=== PATIENT | male | born 1960 | race Caucasian/White ===

== ENCOUNTER → 2022-07-25 | Outpatient (CLI) | payer MEDICARE ==
[~2022-07-25] VITALS: Ht 176 cm; Wt 113.6 kg
[~2022-07-25] MED LIST: AMOX500C2 PO; ATOR20TA66 PO; CITA20TA9 PO; CYCL10TA25 PO; HYDR-3820 PO; LOSA50TA63 PO; METF-399 PO; METO100T12 PO; ONDA4TAB11 SL; OXYB5TAB13 PO; PRCD5U PO; PREG150C46 PO; SEMA1PEN3 SQ
== END | disposition home or self-care (01) ==
LOC: PREOP 05:27
PROVIDERS: ATTEND Surgery
DX: Z01.818 Encounter for other preprocedural examination (principal)

== ENCOUNTER 2022-08-01 00:14 | Inpatient (IN) | payer OTHER, MEDICARE ==
[~2022-08-01] VITALS: Ht 177.8 cm; Wt 113.6 kg
[2022-08-01] VITALS (12 sets, daily range): BP systolic 98–150; BP diastolic 67–96
[2022-08-01] MEDS ORDERED: ceFAZolin INJECTION 2,000 MG in NS (IVPB) 50 ML IV ONE (08:45)
--- NOTE | 2022-08-01 08:45 | Progress Note-Pre Operative ---
Pre-Operative Progress Note Date of Available H&P: Jul 05, 2022 Date H&P Reviewed: Aug 01, 2022 Time H&P Reviewed: 08:45 History & Physical: H&P Reviewed, Patient Examed, No changes noted Pre-Operative Diagnosis: Hx of osteomyelitis and left foot ulcer CLAY NAYLOR DO Aug 01, 2022 08:45
[2022-08-01] MEDS: LACTATED RINGERS 1,000 ML IV PRN ×2 (08:56→10:35)
[2022-08-01] MEDS ORDERED: INSU100I32 SQ (08:59)
[2022-08-01] MEDS ORDERED: INSU100I40 SQ (08:59)
[2022-08-01] MEDS ORDERED: LIDOCAINE PF 2% 5 ML (XYLOCAINE) VIAL ONE (09:11)
[2022-08-01] MEDS ORDERED: SEVOFLURANE (ULTANE) 15 ML INHAL SOLN ONE ×4 (09:11→10:57)
[2022-08-01] MEDS ORDERED: proPOfol 200 MG/20 ML (DIPRIVAN) VIAL IV ONE (09:11)
[2022-08-01] MEDS ORDERED: ONDANSETRON 4 MG/2 ML (SDV) Z0FRAN ONE (09:11)
[2022-08-01] MEDS ORDERED: fentaNYL INJ 100 MCG/2 ML AMP ONE ×2 (09:12→11:21)
[2022-08-01] MEDS ORDERED: MIDAZOLAM 2 MG/2 ML (VERSED) VIAL ONE (09:12)
[2022-08-01] MEDS ORDERED: PHENYLEPHRINE 100 MCG/ML 10 ML (ANESTHESIA) SYR ONE (10:11)
[2022-08-01] MEDS ORDERED: ONDANSETRON 4 MG/2 ML (SDV) Z0FRAN IVP PRN ×2 (11:15→15:15)
[2022-08-01] MEDS ORDERED: morphine INJ 10 MG/ML 1ML (SYR OR VIAL) IVP ONE (11:15)
[2022-08-01] MEDS ORDERED: MEPERIDINE (DEMEROL) INJ 50 MG/ML IVP ONE (11:15)
[2022-08-01] MEDS ORDERED: fentaNYL INJ 100 MCG/2 ML AMP IVP ONE (11:15)
[2022-08-01] MEDS ORDERED: morphine INJ 10 MG/ML 1ML (SYR OR VIAL) ONE (11:15)
--- NOTE | 2022-08-01 12:07 | Progress Note-Post Operative ---
Post-Operative Progess Note Surgeon (s)/Ct Manager (s) Surgeon CLAY NAYLOR DO Ct Manager: marnie Pre-Operative Diagnosis Hx of osteomyelitis and left foot ulcer Post-Operative Diagnosis same Procedure & Operative Findings Date of Procedure 08/01/22 Procedure Performed/Findings Left bka Anesthesia Type gen Estimated Blood Loss Estimated blood loss (mL): minimal Specimens/Packing Specimens Removed left lower extremity CLAY NAYLOR DO Aug 01, 2022 12:07
[2022-08-01] MEDS: HYDROcodone/APAP 5 MG/325 MG (LORTAB) TAB PO PRN ×2 (13:17→20:40)
[2022-08-01] MEDS: LACTATED RINGERS 1,000 ML IV SCH ×2 (13:18→16:19)
--- NOTE | 2022-08-01 14:27 | Physical Therapy Evaluation ---
PT Evaluation-General Medical Diagnosis Admission Date Aug 01, 2022 at 07:40 Medical Diagnosis: left BKA Onset Date: Aug 01, 2022 Therapy Diagnosis Therapy Diagnosis: impaired mobility Precautions Precautions/Isolations: Fall Prevention, Standard Precautions, Pressure Ulcer Referral Physician: Davian Reason for Referral: Evaluation/Treatment Social History Home: Multilevel (has basement) Current Living Status: Spouse Entry Into Home: Ramp Prior Prior Level of Function SCALE: Activities may be completed with or without assistive devices. 4-Doprpfiwal-jgfvori completes the activity by him/herself with no assistance from a helper. 5-Set-up or Clean-up Assistance-helper sets up or cleans up; patient completes activity. [place] assists only prior to or following the activity. 4-Supervision or Touching Assistance-helper provides verbal cues and/or touching/steadying and/or contact guard assistance as patient completes activity. Assistance may be provided throughout the activity or intermittently. 3-Partial/Moderate Assistance-helper does LESS THAN HALF the effort. [place] lifts, holds or supports trunk or limbs, but provides less than half the effort. 2-Substantial/Maximal Assistance-helper does MORE THAN HALF the effort. [place] lifts or holds trunk or limbs and provides more than half the effort. 2-Rwadwvzvg-yylfvu does ALL the effort. Patient does none of the effort to complete the activity. Or, the assistance of 2 or more helpers is required for the patient to complete the activity. If activity was not attempted, code reason: 7-Patient Refused. 9-Not Applicable-not attempted and the patient did not perform the activity before the current illness, exacerbation or injury. 10-Not Attempted due to Environmental Limitations-(lack of equipment, weather restraints, etc.). 88-Not Attempted due to Medical Conditions or Safety Concerns. Bed Mobility: 6 Transfers (B,C,W/C): 6 Gait: 6 Stairs: 6 Indoor Mobility (Ambulation): Independent Stairs: Independent PT Evaluation-Current Subjective Patient in bed pre tx, agrees to PT, has 10/10 pain in left leg. Pt/Family Goals to be independent at home Objective Patient Orientation: Person, Place, Situation Attachments: Oxygen, IV Sensory Vision: Functional Hearing: Functional Sensation Right Lower Extremit: Intact Sensation Left Lower Extremity: Intact Transfers Roll Left to Right (QC): 4 Sit to Lying (QC): 4 Lying to Sitting/Side of Bed(Q: 4 SBA with supine <-> sit, patient has too much pain to stand at this time, he was able to sit to the side of the bed for several minutes before laying back down. Balance Sitting Static: Normal Sitting Dynamic: Normal Treatment LLE ROM x10 (QS, GS, hip abd/add, SLR, HS) Assessment/Needs Patient in bed post tx with nurse call, phone, tray, all needs met. Patient has impaired mobility, quite a bit of pain at this time, patient states nurse is aware of his pain. Rehab Potential: Fair PT Floral Decorator Goals Prison Goals PT Prison Goals Time Frame: Aug 08, 2022 Roll Left & Right (QC): 6 Sit to Lying (QC): 6 Lying-Sitting on Side/Bed(QC): 6 Sit to Stand (QC): 4 Chair/Gvj-ou-Cxqxt Xfer(QC): 4 Walk 10 feet (QC): 4 PT Plan Problem List Problem List: Activity Tolerance, Functional Strength, Safety, Balance, Gait, Transfer, Bed Mobility, ROM Treatment/Plan Treatment Plan: Continue Plan of Care Treatment Plan: Bed Mobility, Education, Functional Activity Han, Functional Strength, Gait, Safety, Therapeutic Exercise, Transfers Treatment Duration: Aug 08, 2022 Frequency: 6 times per week Estimated Hrs Per Day: .25 hour per day Patient and/or Family Agrees t: Yes Safety Risks/Education Patient Education: Correct Positioning, Safety Issues Teaching Recipient: Patient Teaching Methods: Demonstration, Discussion Response to Teaching: Reinforcement Needed Discharge Recommendations Plan Patient will perform bed mobility and transfer training, balance and endurance training, functional strengthening, gait training, and education, to improve functional mobility and independence at home. Therapy Discharge Recommendati: Home & Family, Post Acute PT Time Time In: 1348 Time Out: 1403 DATE: Aug 01, 2022 Total Billed Treatment Time: 15 Total Billed Treatment 1 visit CAROL COLE PT Aug 01, 2022 14:27
--- NOTE | 2022-08-01 14:37 | Consultation - Hospitalist ---
AKI JACKSON 08/01/22 1437: HPI History of Present Illness: HPI/Chief Complaint 62 year old male with history of Insulin dependent type 2 diabetes, tachycardia, hyperlipidemia, depression, chronic bilateral neuropathy who is S/P left BKA for chronic osteomyelitis of left foot. Dr. Marcelo has consulted Dr. Parry for management of patient's chronic health conditions. Patient was awake in bed eating lunch when seen. He is having significant pain in his left leg but reports feeling well otherwise. He denies headache, lightheadedness, dizziness, CP, palpitations, SOB, abd pain, N/V/D. Source: patient Date Seen 08/01/22 Attending Physician No,Local Physician PCP Admitting Physician: Shmuel Marcelo DO Attending Physician: Shmuel Marcelo DO Referring Physician Date of Admission Aug 01, 2022 at 07:40 Home Medications & Allergies Home Medications Reviewed patient Home Medication Reconciliation performed by pharmacy medication reconciliations technician assistant and/or nursing. Patients Allergies have been reviewed. Allergies Allergies Coded Allergies Iodinated Contrast Media (Unverified Allergy, Severe, Itching, 07/25/22) Past Rrotgev-Thyrss-Hvmwfb Hx Patient Social History Tobacco Use?: No Smoking Status: Never a Smoker Smokeless Tobacco Frequency: Never a User Use of E-Cig and/or Vaping dev: No Substance use?: Yes Substance type: Marijuana (edibles) Alcohol Use?: Yes Alcohol type: Beer Alcohol Frequency: Rarely Pt feels they are or have been: No Seasonal Allergies Seasonal Allergies: No Current Status Communicates: Verbally Primary Language: Czech Preferred Spoken Language: Czech Is interpretation needed?: No Sensory deficits: Hearing impairment Past Medical History Surgeries: Gallbladder Currently Using CPAP: No Currently Using BIPAP: No High Cholesterol Amputee, Chronic Back Pain Diabetes, Insulin dep PTSD, Depression Blood Disorders: No Review of Systems Constitutional: No chills, No diaphoresis, No dizziness, No fever EENTM: No hearing loss, No vision loss Respiratory: No cough, No hemoptysis, No short of breath Cardiovascular: No chest pain, No edema, No palpitations Gastrointestinal: No abdominal pain, No diarrhea, No loss of appetite, No nausea, No vomiting Genitourinary: No dysuria, No hematuria Musculoskeletal: other (intermittent left leg pain at amputation site) Skin: No rash Psychiatric/Neurological: Denies Anxiety; Depressed (chronic); Denies Headache; Other (chronic neuropathy in legs bilaterally) Physical Exam Physical Exam Vital Signs Vital Signs - First Documented 08/01/22 08/01/22 08:36 08:53 Temp 36.8 Pulse 94 Resp 22 B/P (MAP) 132/87 (102) Pulse Ox 96 O2 Delivery Room Air Capillary Refill : Height, Weight, BMI Height: '" Weight: lbs. oz. kg; 35.93 BMI Method: General Appearance: No Apparent Distress, WD/WN, Obese Eyes: Bilateral Eye PERRL, Bilateral Eye EOMI HEENT: PERRL/EOMI, Pharynx Normal, Moist Mucous Membranes Neck: Normal Inspection, Non Tender, Supple Respiratory: Chest Non Tender, Lungs Clear, Normal Breath Sounds, No Accessory Muscle Use, No Respiratory Distress Cardiovascular: Regular Rate, Rhythm, No Murmur, Normal Peripheral Pulses Gastrointestinal: Non Tender, Soft, Abnormal Bowel Sounds (decreased); No Distended Extremity: Normal Capillary Refill, Normal Range of Motion, No Pedal Edema, Other (BKA of left leg with bandage in place and small amount serosanguinous fluid present. 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 Assessment/Plan Assessment and Plan Assess & Plan/Chief Complaint Day 0 S/P left BKA History of chronic osteomyelitis and and left foot ulceration Procedure performed 08/01/[address] Marcelo Cefazolin 2g IV Q8hr, 2 bags ordered. Pain management with lortab 5mg Q4 PRN PO and Morphine Q2hr PRN IV at this time and will deescalate as appropriate Type 2 Diabetes, Insulin dependent Will hold home metformin 1g PO BID and semaglutide SQ weekly injection Start insulin sliding scale and monitor. Hold long acting insulin for now, most recent glucose of 79. Hyperlipidemia Continue Atorvostatin 20mg PO QD from home meds Tachycardia, chronic Patient takes metoprolol 100mg PO BID for chronic tachycardia. Pt. Denies seeing a wool handler regularly or history of atril fibrilation or flutter. Will continue metoprolol from home meds. Consider getting EKG. Depression Continue Citalopram 10mg QD Neuropathy Pregabalin 150mg PO BID. SOILA PARRY MD 08/01/22 1531: Results Results/Procedures Labs Laboratory Tests 08/02/22 04:58 Assessment/Plan Assessment and Plan Assess & Plan/Chief Complaint Patient admitted for BKA due to chronic osteomyelitis. He has IDDMII and is well controlled with his dexcom. Will only treat with SSI for now to avoid hypoglycemia unless they start trending up. Continue pain regimen and surgical wound care per primary. Continue home meds once med rec done. 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 I reviewed and verified all information documented by the medical student and made modifications to such information, when appropriate. I personally performed the physical exam and medical decision making. Soila Parry, Aug 01, 2022,15:31 AKI JACKSON Aug 01, 2022 14:37 SOILA PARRY MD Aug 01, 2022 15:31
[2022-08-01] MEDS: morphine INJ 4 MG/ML 1 ML (VIAL/SYRINGE) IVP PRN ×3 (14:45→23:05)
[2022-08-01] MEDS: inSUlin ASPART (NovoLOG) 1 UNIT/0.01 ML (CHARGE PER UNIT) SC SCH ×2 (16:20→20:40)
[2022-08-01] MEDS: ceFAZolin INJECTION 2,000 MG in NS (IVPB) 50 ML IV SCH (16:52)
[2022-08-02] VITALS (7 sets, daily range): BP systolic 123–140; BP diastolic 61–77
[2022-08-02] MEDS: ceFAZolin INJECTION 2,000 MG in NS (IVPB) 50 ML IV SCH (01:05)
[2022-08-02] MEDS: LACTATED RINGERS 1,000 ML IV SCH ×3 (01:08→22:31)
[2022-08-02] MEDS: HYDROcodone/APAP 5 MG/325 MG (LORTAB) TAB PO PRN ×5 (01:08→22:32)
[2022-08-02 05:06] LABS: HEMATOCRIT 37 % (40-54); HEMOGLOBIN 12.8 g/dL (13.3-17.7); MEAN CORPUSCULAR HEMOGLOBIN 30 pg (25-34); MEAN CORPUSCULAR HGB CONC 35 g/dL (32-36); MEAN CORPUSCULAR VOLUME 88 fL (80-99); MEAN PLATELET VOLUME 10.5 fL (9.0-12.2); PLATELET COUNT 234 10^3/uL (130-400); WHITE BLOOD COUNT 11.5 10^3/uL (4.3-11.0)
[2022-08-02 05:14] LABS: POTASSIUM 3.5 MMOL/L (3.6-5.0)
[2022-08-02 05:15] LABS: CALCIUM 8.5 MG/DL (8.5-10.1)
[2022-08-02 05:20] LABS: CREATININE SERUM 1.29 MG/DL (0.60-1.30)
[2022-08-02] MEDS: inSUlin ASPART (NovoLOG) 1 UNIT/0.01 ML (CHARGE PER UNIT) SC SCH ×4 (05:26→20:24)
[2022-08-02] MEDS: morphine INJ 4 MG/ML 1 ML (VIAL/SYRINGE) IVP PRN ×4 (05:32→13:13)
--- NOTE | 2022-08-02 10:02 | Progress Note - Surgery ---
CHRISTIAN MCCRACKEN 08/02/22 1002: Subjective Date Seen by a Provider: Aug 02, 2022 Time Seen by a Provider: 08:55 Subjective/Events-last exam Pt resting comfortably with family at bedside. POD1 left BKA. His pain is 8/10 and is a dull ache. States pain medications dull the pain slightly. He ate dinner last night without difficulty. No urinary sx. He has not had a bowel movement yet. Denies N/V, sweats, chills, chest pain, shortness of breath. Review of Systems General: No Chills, No Night Sweats HEENT: No Head Aches, No Visual Changes Pulmonary: No Dyspnea, No Cough Cardiovascular: No: Chest Pain Gastrointestinal: No: Nausea, Abdominal Pain, Diarrhea Genitourinary: No Dysuria, No Frequency Musculoskeletal: leg pain (left BKA) Neurological: Weakness, Numbness Objective Exam Vital Signs Date Time Temp Pulse Resp B/P (MAP) Pulse Ox O2 Delivery O2 Flow Rate FiO2 08/02/22 08:00 37.0 99 18 131/75 (93) 93 Room Air 08/02/22 03:17 37.1 100 18 131/74 (93) 95 Room Air 08/01/22 23:42 37.6 98 18 133/78 (96) 94 Room Air 08/01/22 20:40 Room Air 08/01/22 19:51 37.8 98 18 128/77 (94) 94 Room Air 08/01/22 16:17 37.3 102 18 150/80 (103) 95 Room Air 08/01/22 14:48 Room Air 08/01/22 12:53 Nasal Cannula 2.00 08/01/22 12:45 36.9 100 20 137/77 (97) 97 Nasal Cannula 2.00 08/01/22 12:05 Nasal Cannula 2.00 08/01/22 12:00 36.8 20 143/89 (107) 93 Nasal Cannula 2.00 08/01/22 11:55 OxyMask 2.00 08/01/22 11:50 18 149/92 (111) 98 OxyMask 4.00 08/01/22 11:40 18 140/96 (111) 97 OxyMask 4.00 08/01/22 11:40 OxyMask 4.00 08/01/22 11:30 16 139/90 (106) 95 OxyMask 4.00 08/01/22 11:22 OxyMask 4.00 08/01/22 11:20 20 126/84 (98) 97 OxyMask 4.00 08/01/22 11:10 18 98/67 (77) 97 OxyMask 6.00 08/01/22 11:07 OxyMask 8.00 08/01/22 11:07 36.3 16 98/67 (77) 98 OxyMask 8.00 I & O 08/02/22 07:00 Intake Total 4650 ml Output Total 700 ml Balance 3950 ml Capillary Refill : General Appearance: No Apparent Distress, WD/WN, Obese HEENT: PERRL/EOMI, Moist Mucous Membranes Neck: Non Tender, Supple Respiratory: Chest Non Tender, Lungs Clear, Normal Breath Sounds, No Accessory Muscle Use, No Respiratory Distress Cardiovascular: Regular Rate, Rhythm, No Murmur, Normal Peripheral Pulses Peripheral Pulses: 2+ Dorsalis Pedis (R), 2+ Radial Pulses (R), 2+ Radial Pulses (L) Gastrointestinal: normal bowel sounds, non tender, soft Extremity: Normal Capillary Refill, Normal Range of Motion, No Pedal Edema, Other (BKA of left leg with bandage in place and small amount serosanguinous fluid present. 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 Norm as Tested Skin: Normal Color, Warm/Dry, Tattoos/Piercings Lymphatic: No Adenopathy Results Lab Laboratory Tests 08/01/22 11:11: Glucometer 79 08/02/22 04:58: White Blood Count 11.5H, Red Blood Count 4.22L, Hemoglobin 12.8L, Hematocrit 37L , Mean Corpuscular Volume 88, Mean Corpuscular Hemoglobin 30, Mean Corpuscular Hemoglobin Concent 35, Red Cell Distribution Width 13.5, Platelet Count 234, Mean Platelet Volume 10.5, Sodium Level 138, Potassium Level 3.5L, Chloride Level 106, Carbon Dioxide Level 17L, Anion Gap 15H, Blood Urea Nitrogen 17, Creatinine 1.29, Estimat Glomerular Filtration Rate 63, BUN/Creatinine Ratio 13, Glucose Level 83, Calcium Level 8.5 08/02/22 05:28: Glucometer 92 Microbiology 08/01/22 MRSA Screen - Final, Complete MRSA not isolated Assessment/Plan Assessment/Plan Assessment/Plan S/p Left BKA - POD 1 Hx of Left foot ulcer Hx of osteomyelitis Type 2 Diabetes mellitus Pt tolerated L BKA well Completed abx Incentive spirometry Pain control Wound care Inpatient rehab Pt is agreeable with plan of care CLAY MARCELO DO 08/02/22 1502: Subjective Subjective/Events-last exam Pain an issue, pain med adjusted. Sitting in chair. Using IS. Denies n/v fever sweats chills shortness of breath or chest pain. Objective Exam General Appearance: No Apparent Distress, Obese HEENT: PERRL/EOMI, Moist Mucous Membranes Neck: Non Tender, Supple Respiratory: Chest Non Tender, No Accessory Muscle Use, No Respiratory Distress Cardiovascular: Regular Rate, Rhythm, No JVD Gastrointestinal: non tender, soft Extremity: Normal Capillary Refill, Normal Range of Motion, Other (BKA of left leg small amount serosanguinous fluid present. Well healing incision with no surrounding erythema or abnormalities.) Neurologic/Psychiatric: Alert, Oriented x3 Skin: Normal Color, Warm/Dry Lymphatic: No Adenopathy Assessment/Plan Assessment/Plan Assessment/Plan S/p Left BKA - POD 1 Hx of Left foot ulcer Hx of osteomyelitis Type 2 Diabetes mellitus Completed abx Incentive spirometry Pain control Wound care Inpatient rehab Pt is agreeable with plan of care Prosthetics consulted Supervisory-Addendum Brief Verification & Attestation Participated in pt care: history, MDM, physical Personally performed: exam, history, MDM, supervision of care Care discussed with: Medical Student Procedures: n/a Results interpretation: Verified all documentation Verification and Attestation of Medical Student E/M Service A medical student performed and documented this service in my presence. I reviewed and verified all information documented by the medical student and made modifications to such information, when appropriate. I personally performed the physical exam and medical decision making. Clay Marcelo, Aug 02, 2022,15:02 CHRISTIAN MCCRACKEN Aug 02, 2022 10:02 CLAY MARCELO DO Aug 02, 2022 15:02
--- NOTE | 2022-08-02 10:47 | Physical Therapy Daily Note ---
PT Daily Note-Current Subjective Patient in bed pre tx, has more pain today /10, nurse gives him pain meds, patient agrees to PT. Pain Section J - Health Conditions 1. Rarely or not at all 2. Occasionally 3. Frequently 4. Almost constantly 8. Unable to answer Pain Effect on Sleep: 4 Pain Interference with Therapy: 4 Pain Interference w/Day-to-Day: 4 Appearance Patient in recliner post tx with nurse call, phone, tray, all needs met. Mental Status Patient Orientation: Person, Place, Situation Attachments: IV Transfers SCALE: Activities may be completed with or without assistive devices. 7-Hnskiprpuc-jvfplzk completes the activity by him/herself with no assistance from a helper. 5-Set-up or Clean-up Assistance-helper sets up or cleans up; patient completes activity. [place] assists only prior to or following the activity. 4-Supervision or Touching Assistance-helper provides verbal cues and/or touching/steadying and/or contact guard assistance as patient completes activity. Assistance may be provided throughout the activity or intermittently. 3-Partial/Moderate Assistance-helper does LESS THAN HALF the effort. [place] lifts, holds or supports trunk or limbs, but provides less than half the effort. 2-Substantial/Maximal Assistance-helper does MORE THAN HALF the effort. [place] lifts or holds trunk or limbs and provides more than half the effort. 2-Uwnoqzsjv-xjnwde does ALL the effort. Patient does none of the effort to complete the activity. Or, the assistance of 2 or more helpers is required for the patient to complete the activity. If activity was not attempted, code reason: 7-Patient Refused. 9-Not Applicable-not attempted and the patient did not perform the activity before the current illness, exacerbation or injury. 10-Not Attempted due to Environmental Limitations-(lack of equipment, weather restraints, etc.). 88-Not Attempted due to Medical Conditions or Safety Concerns. Roll Left & Right (QC): 4 Lying to Sitting/Side of Bed(Q: 4 Sit to Stand (QC): 4 Chair/Hpt-le-Biphg Xfer(QC): 4 SBA for supine to sit, CGA for sit to stand and transfer. Patient is moving very slowly today due to the pain. Once he is standing he is able to take several small hops over to the recliner and sit down. Cues for hand placement and positioning. Exercises Supine Ex: Quad Set, Glut sets Supine Reps: 20 (done in recliner with legs elevated) Seated Therapy Exercises: Long arc quads, Hamstring Curls Seated Reps: 20 (LLE) Treatments bed mobility and transfers, ROM Assessment Current Status: Fair Progress improvement despite increased pain. Patient is having quite a bit of seeping, nurse is aware, left residual limb elevated on pillow with absorbing pad. 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 Time Frame: Aug 08, 2022 Roll Left & Right (QC): 6 Sit to Lying (QC): 6 Lying-Sitting on Side/Bed(QC): 6 Sit to Stand (QC): 4 Chair/Alb-fw-Xjszn Xfer(QC): 4 Walk 10 feet (QC): 4 PT Plan Problem List Problem List: Activity Tolerance, Functional Strength, Safety, Balance, Gait, Transfer, Bed Mobility, ROM Treatment/Plan Treatment Plan: Continue Plan of Care Treatment Plan: Bed Mobility, Education, Functional Activity Han, Functional Strength, Gait, Safety, Therapeutic Exercise, Transfers Treatment Duration: Aug 08, 2022 Frequency: 6 times per week Estimated Hrs Per Day: .25 hour per day Patient and/or Family Agrees t: Yes Safety Risks/Education Patient Education: Transfer Techniques, Correct Positioning, Safety Issues Teaching Recipient: Patient Teaching Methods: Demonstration, Discussion Response to Teaching: Reinforcement Needed Time Time In: 1018 Time Out: 1031 DATE: Aug 02, 2022 Total Billed Treatment Time: 13 Total Billed Treatment 1 visit FA 13CAROL WALLS PT Aug 02, 2022 10:47
--- NOTE | 2022-08-02 10:59 | Anesthesia-General Post-Op ---
General Patient Condition Mental Status/LOC: Same as Preop Cardiovascular: Satisfactory Nausea/Vomiting: Absent Respiratory: Satisfactory Pain: Controlled Complications: Absent Post Op Complications Complications None Follow Up Care/Instructions Patient Instructions None needed. Anesthesia/Patient Condition Patient Condition Patient is doing well, no complaints, stable vital signs, no apparent adverse anesthesia problems. No complications reported per nursing. LAUREL FAIRBANKS CRNA Aug 02, 2022 10:59
[2022-08-02] MEDS ORDERED: IBUP-1780 PO (11:19)
[2022-08-02] MEDS ORDERED: OMEP-254 PO (11:19)
[2022-08-02] MEDS ORDERED: MULT-1029 PO (11:19)
[2022-08-02] MEDS ORDERED: ASPI325T32 PO (11:19)
[2022-08-02] MEDS ORDERED: INSU200I4 SQ (11:35)
--- NOTE | 2022-08-02 14:04 | Occupational Therapy Eval ---
OT Evaluation-General/PLF Medical Diagnosis Admission Date Aug 01, 2022 at 07:40 Medical Diagnosis: left BKA Onset Date: Aug 01, 2022 Therapy Diagnosis Therapy Diagnosis: decreased ADL status Precautions Precautions/Isolations: Standard Precautions Referral Physician: Davian Medical History Current History s/p L BKA 08/01/22 Social History Home: Single Level Current Living Status: Spouse Entry Into Home: Ramp ADL-Prior Level of Function SCALE: Activities may be completed with or without assistive devices. 9-Ovyazyrgrq-wiwadje completes the activity by him/herself with no assistance from a helper. 5-Set-up or Clean-up Assistance-helper sets up or cleans up; patient completes activity. [place] assists only prior to or following the activity. 4-Supervision or Touching Assistance-helper provides verbal cues and/or touching/steadying and/or contact guard assistance as patient completes activity. Assistance may be provided throughout the activity or intermittently. 3-Partial/Moderate Assistance-helper does LESS THAN HALF the effort. [place] lifts, holds or supports trunk or limbs, but provides less than half the effort. 2-Substantial/Maximal Assistance-helper does MORE THAN HALF the effort. [place] lifts or holds trunk or limbs and provides more than half the effort. 6-Svzgmnpmd-cpjjcy does ALL the effort. Patient does none of the effort to complete the activity. Or, the assistance of 2 or more helpers is required for the patient to complete the activity. If activity was not attempted, code reason: 7-Patient Refused. 9-Not Applicable-not attempted and the patient did not perform the activity before the current illness, exacerbation or injury. 10-Not Attempted due to Environmental Limitations-(lack of equipment, weather restraints, etc.). 88-Not Attempted due to Medical Conditions or Safety Concerns. ADL PLOF Comments Pt reports IND with ADLs and functional mobility at [facility], no AD. He has a walk in tub with SC. Pt uses a sock aide to don socks, shoe horn to doff. Pt indicates is going to [employer] today to see about getting a w/c Self Care: Independent Functional Cognition: Independent OT Current Status Subjective Pt in recliner, agreeable to OT Tx. Mental Status/Objective Patient Orientation: Normal For Age Attachments: IV Current Glasses/Contacts: Yes Hearing Aids: No (deaf L ear) Upper Extremity ROM WFL Upper Extremity Coordination WFL Upper Extremity Sensation WFL Upper Extremity Strength grossly 4+/5 ADL-Treatment Eating (QC): 6 Oral Hygiene (QC): 5 Shower/Bathe Self (QC): 3 (Pt would require assistance washing RLE lower leg/foot at this time. CGA in stand for washing buttocks.) Upper Body Dressing (QC): 5 Lower Body Dressing (QC): 2 On/Off Footwear (QC): 1 (no AE. Pt uses AE at home.) Toileting Hygiene (QC): 3 (Mod A ) Other Treatments Pt in recliner eating lunch, agreeable to OT evaluation. Pt donned underwear, max A overall (assist over BLEs and some assist with pant hike). Pt used FWW to perform functional mobility into bathroom and onto toilet, CGA, OT managed IV pole. Pt completed toileting, mod A required with clothing management. Pt used FWW to return to recliner, CGA-SBA. Post tx, pt in recliner, call light in reach and all needs met. Education OT Patient Education: Correct positioning, Energy conservation, Modified ADL techniques, Progress toward Goal/Update tx plan, Purpose of tx/functional activities, Rehab process, Safety issues, Transfer techniques Teaching Recipient: Patient Teaching Methods: Discussion Response to Teaching: Verbalize Understanding OT Airport Ramp Attendant Goals Airport Ramp Attendant Goals Time Frame: Aug 09, 2022 Toileting Hygiene (QC): 4 Shower/Bathe Self (QC): 5 Lower Body Dressing (QC): 4 On/Off Footwear (QC): 5 Additional Goals: 1-Demonstrate ADL Tasks, 2-Verbalize Understanding, 3-Im proveStrength/Han 1=Demonstrate adherence to instructed precautions during ADL tasks. 2=Patient will verbalize/demonstrate understanding of assistive devices/modifications for ADL. 3=Patient will improve strength/tolerance for activity to enable patient to perform ADL's. OT Education/Plan Problem List/Assessment Assessment: Decreased Activ Tolerance, Decreased UE Strength, Impaired Funct Balance, Impaired I ADL's, Impaired Self-Care Skills Pt would benefit from skilled OT services in order to increase safety and independence with ADLS in order to maximize LOF for safe return home with spouse. Discharge Recommendations Plan/Recommendations: Continue POC Treatment Plan/Plan of Care Patient would benefit from OT for education, treatment and training to promote independence in ADL's, mobility, safety and/or upper extremity function for ADL's. Plan of Care: ADL Retraining, Functional Mobility, UE Funct Exercise/Act Treatment Duration: Aug 09, 2022 Frequency: 3 times per week (3-5 times per week) Estimated Hrs Per Day: .25 hour per day Agreement: Yes Rehab Potential: Good Time Start Time: 13:35 Stop Time: 14:08 DATE: Aug 02, 2022 Total Time Billed (hr/min): 33 Billed Treatment Time 1, EVM (15'), ADL (18') KARAN GONSALES OT Aug 02, 2022 14:04
--- NOTE | 2022-08-02 14:11 | Progress Note - Hospitalist ---
Subjective HPI/CC On Admission Date Seen by Provider: Aug 02, 2022 62 year old male with history of Insulin dependent type 2 diabetes, tachycardia, hyperlipidemia, depression, chronic bilateral neuropathy who is S/P left BKA for chronic osteomyelitis of left foot. Dr. Marcelo has consulted Dr. Parry for management of patient's chronic health conditions. Patient was awake in bed eating lunch when seen. He is having significant pain in his left leg but r eports feeling well otherwise. He denies headache, lightheadedness, dizziness, CP, palpitations, SOB, abd pain, N/V/D. Subjective/Events-last exam Pt reports doing well. No new complaints. Still having pain. Not working very well with current 2mg dose. Increased the dose while I was in the room. Objective Exam Vital Signs Vital Signs Date Time Temp Pulse Resp B/P (MAP) Pulse Ox O2 Delivery O2 Flow Rate FiO2 08/02/22 11:22 37.0 98 18 140/77 (98) 96 Room Air 08/02/22 08:00 2.00 Capillary Refill : General Appearance: No Apparent Distress, Chronically ill, Obese Respiratory: Lungs Clear, No Respiratory Distress Cardiovascular: Regular Rate, Rhythm, No Murmur Results/Procedures Lab Laboratory Tests 08/02/22 04:58 Patient resulted labs reviewed. Assessment/Plan Assessment and Plan Assess & Plan/Chief Complaint s/p BKA Chronic osteomyelitis Management per primary Increased morphine Prosthetics consult IDDMII Peripheral neuropathy Blood sugars well controlled with just SSI Trend Patient check with home dexcom sinus tachycardia HLD Continue home mds Will round prn, please call for any needs. SOILA PARRY MD Aug 02, 2022 14:11
[2022-08-02] MEDS ORDERED: IBUPROFEN 800 MG (MOTRIN) TAB PO PRN (14:15)
[2022-08-02] MEDS: CYCLOBENZAPRINE 10 MG (FLEXERIL) TAB PO SCH ×2 (14:33→20:24)
[2022-08-02] MEDS ORDERED: meTOprolol TARTRATE 50 MG (LOPRESSOR) TAB PO SCH ×2 (18:00→21:00)
[2022-08-02] MEDS ORDERED: meTOprolol TARTRATE 50 MG (LOPRESSOR) TAB PO ONE (18:30)
[2022-08-02] MEDS: PREGABALIN 150 MG (LYRICA) CAPSULE PO SCH (20:23)
[2022-08-02] MEDS: OXYBUTYNIN (DITROPAN) 5 MG TAB PO SCH (20:23)
[2022-08-03 03:45] VITALS: BP 127/71
--- NOTE | 2022-08-03 04:37 | OPERATIVE REPORT ---
DATE OF SERVICE: 08/01/2022 PREOPERATIVE DIAGNOSIS: Chronic osteomyelitis. POSTOPERATIVE DIAGNOSIS: Chronic osteomyelitis. PROCEDURE: Left below-knee amputation. SURGEON: Clay Marcelo DO. CLOTHING PRESSER: Dr. Mabry, who assisted in retraction, dissection and closure. TYPE OF ANESTHESIA: General. ESTIMATED BLOOD LOSS: Minimal. COMPLICATIONS: None. INDICATIONS: The patient is a 62-year-old male who has had a chronic foot wound of an osteomyelitis. He has had this since approximately 2016 and has had chronic issues. He is tired of continuing with conservative measures and he no longer wants to proceed that way and wants to proceed with a left lrbfq-yfn-ljle amputation. He understands all risks and benefits and wishes to proceed. His is with him and she agrees with the plan as well. Consent was signed on the chart. DESCRIPTION OF PROCEDURE: The patient was taken to the operating suite where he was prepped and draped in sterile fashion. Timeout was performed. A fishmouth incision was made about one hand width below the tibial plateau. A 15 blade was used to make the incision. Cautery was used to dissect down through skin and subcutaneous tissues. Vessels were encountered. Small vessels were cauterized and as the muscle was divided and vascular bundles were encountered, these were clamped, cut and tied off in the usual fashion using 0 silk sutures. Once the tibia was encountered, a bone saw was used to cut through the bone, which was also shaped and then a rasp was used to file it. The fibula was then transected with a bone saw, approximately 1 cm above the cut of the tibia. This was rasped as well. Wound was then irrigated with copious amounts of irrigation. Hemostasis was achieved after the tourniquet was let off. The skin was then closed using [ ] 0 Prolene in vertical mattress fashion. The skin was then also closed with cheo. The area was washed and dried and sterile bandage was applied. The patient tolerated the procedure well without any complications. He was taken to recovery room in stable condition. Job ID: [id number] DocumentID: [id number] Dictated Date: 08/02/2022 16:19:41 Home Health Scheduler Date: 08/03/2022 04:35:00 Dictated By: CLAY MARCELO DO
[2022-08-03] MEDS: inSUlin ASPART (NovoLOG) 1 UNIT/0.01 ML (CHARGE PER UNIT) SC SCH ×4 (05:47→20:30)
[2022-08-03 07:55] VITALS: BP 118/68
[2022-08-03] MEDS: CYCLOBENZAPRINE 10 MG (FLEXERIL) TAB PO SCH ×3 (07:58→20:42)
[2022-08-03] MEDS: OXYBUTYNIN (DITROPAN) 5 MG TAB PO SCH ×2 (07:58→20:42)
[2022-08-03] MEDS: morphine INJ 4 MG/ML 1 ML (VIAL/SYRINGE) IVP PRN ×3 (07:58→16:08)
[2022-08-03] MEDS: PREGABALIN 150 MG (LYRICA) CAPSULE PO SCH ×3 (07:58→20:42)
[2022-08-03] MEDS: PANTOPRAZOLE 20 MG TABLET (PROTONIX) PO SCH (07:58)
[2022-08-03] MEDS: HYDROcodone/APAP 5 MG/325 MG (LORTAB) TAB PO PRN ×4 (07:58→20:42)
[2022-08-03] MEDS: meTOprolol TARTRATE 50 MG (LOPRESSOR) TAB PO SCH ×2 (07:59→20:42)
[2022-08-03] MEDS: LACTATED RINGERS 1,000 ML IV SCH (08:00)
--- NOTE | 2022-08-03 09:05 | Physical Therapy Daily Note ---
PT Daily Note-Current Subjective Patient agrees to PT. Pain Section J - Health Conditions 1. Rarely or not at all 2. Occasionally 3. Frequently 4. Almost constantly 8. Unable to answer Pain Effect on Sleep: 2 Pain Interference with Therapy: 2 Pain Interference w/Day-to-Day: 2 Mental Status Attachments: IV Transfers SCALE: Activities may be completed with or without assistive devices. 3-Ojklodbqem-rpxuhdh completes the activity by him/herself with no assistance from a helper. 5-Set-up or Clean-up Assistance-helper sets up or cleans up; patient completes activity. [place] assists only prior to or following the activity. 4-Supervision or Touching Assistance-helper provides verbal cues and/or touc hannah/steadying and/or contact guard assistance as patient completes activity. Assistance may be provided throughout the activity or intermittently. 3-Partial/Moderate Assistance-helper does LESS THAN HALF the effort. [place] lifts, holds or supports trunk or limbs, but provides less than half the effort. 2-Substantial/Maximal Assistance-helper does MORE THAN HALF the effort. [place] lifts or holds trunk or limbs and provides more than half the effort. 1-Bphqnnvgu-ybkous does ALL the effort. Patient does none of the effort to complete the activity. Or, the assistance of 2 or more helpers is required for the patient to complete the activity. If activity was not attempted, code reason: 7-Patient Refused. 9-Not Applicable-not attempted and the patient did not perform the activity before the current illness, exacerbation or injury. 10-Not Attempted due to Environmental Limitations-(lack of equipment, weather restraints, etc.). 88-Not Attempted due to Medical Conditions or Safety Concerns. Sit to Stand (QC): 3 Toilet Transfer (QC): 3 Gait Training Distance: 15' x 2 Walk 10 feet (QC): 3 Gait Assistive Device: FWW able to "hop" safely with FWW and PT assist with minimal foot clearance Exercises Supine Ex: Quad Set, Heel Slides, Straight leg raise Supine Reps: 15 Seated Therapy Exercises: Long arc quads Seated Reps: 15 Assessment Patient progressing with treatment plan. PT to increase activity to ensure patient has full recovery. Plan ARU soon. PT Flexo Operator Goals Fdc Goals PT Fdc Goals Time Frame: Aug 08, 2022 Roll Left & Right (QC): 6 Sit to Lying (QC): 6 Lying-Sitting on Side/Bed(QC): 6 Sit to Stand (QC): 4 Chair/Xkr-fp-Lfhru Xfer(QC): 4 Walk 10 feet (QC): 4 PT Plan Treatment/Plan Treatment Plan: Continue Plan of Care Treatment Plan: Bed Mobility, Education, Functional Activity Han, Functional Strength, Gait, Safety, Therapeutic Exercise, Transfers Treatment Duration: Aug 08, 2022 Frequency: 6 times per week Estimated Hrs Per Day: .25 hour per day Patient and/or Family Agrees t: Yes Time Time In: 817 Time Out: 840 DATE: Aug 03, 2022 Total Billed Treatment Time: 23 Total Billed Treatment 1 visit GT 10 min EX 13 min KEDAR KO PT Aug 03, 2022 09:05
--- NOTE | 2022-08-03 11:18 | Progress Note ---
Subjective Date Seen by a Provider: Aug 03, 2022 Time Seen by a Provider: 10:30 Subjective/Events-last exam Patient seen with Dr. Emery. Patient reports doing well. Reports some pain of the left lower extremity but tolerable with pain meds. Tolerating diet and having BMs Objective Exam Vital Signs Date Time Temp Pulse Resp B/P (MAP) Pulse Ox O2 Delivery O2 Flow Rate FiO2 08/03/22 08:00 94 Room Air 08/03/22 07:55 37.1 106 20 118/68 (85) 94 Room Air 08/03/22 03:45 36.4 102 16 127/71 (89) 92 Room Air 08/02/22 23:22 36.6 100 16 127/71 (89) 94 Room Air 08/02/22 20:29 Room Air 08/02/22 19:24 36.8 97 22 125/70 (88) 95 Room Air 08/02/22 17:12 119 20 123/72 (89) 94 Room Air 08/02/22 15:29 36.7 117 22 133/61 (85) 92 Room Air 08/02/22 11:22 37.0 98 18 140/77 (98) 96 Room Air I & O 08/03/22 07:00 Intake Total 1030 ml Output Total 1250 ml Balance -220 ml Capillary Refill : General Appearance: No Apparent Distress, WD/WN Neck: Normal Inspection, Supple Respiratory: No Accessory Muscle Use, No Respiratory Distress Cardiovascular: Regular Rate, Rhythm, No JVD Gastrointestinal: normal bowel sounds, non tender, soft Extremity: Other (Left BKA with dressing in place C/D/I) Neurologic/Psychiatric: Alert, Oriented x3 Skin: Normal Color, Warm/Dry Results Lab Microbiology 08/01/22 MRSA Screen - Final, Complete MRSA not isolated Assessment/Plan Assessment/Plan Assess & Plan/Chief Complaint A 62 year old male who is S/p Left BKA - POD 2 Hx of Left foot ulcer Hx of osteomyelitis Type 2 Diabetes mellitus Pt tolerated L BKA well Completed abx Incentive spirometry Pain control Wound care Inpatient rehab - awaiting Pt is agreeable with plan of care TROY GABRIEL APRN Aug 03, 2022 11:18
[2022-08-03 11:36] VITALS: BP 126/57
[2022-08-03 15:53] VITALS: BP 109/65
[2022-08-03 19:16] VITALS: BP 111/61
[2022-08-03 23:24] VITALS: BP 118/62
[2022-08-04 04:00] VITALS: BP 117/66
[2022-08-04] MEDS: HYDROcodone/APAP 5 MG/325 MG (LORTAB) TAB PO PRN ×3 (04:41→20:02)
[2022-08-04] MEDS: morphine INJ 4 MG/ML 1 ML (VIAL/SYRINGE) IVP PRN ×3 (05:22→21:38)
[2022-08-04] MEDS: inSUlin ASPART (NovoLOG) 1 UNIT/0.01 ML (CHARGE PER UNIT) SC SCH ×5 (05:24→21:04)
[2022-08-04 07:48] VITALS: BP 127/72
[2022-08-04] MEDS: OXYBUTYNIN (DITROPAN) 5 MG TAB PO SCH ×2 (08:34→20:02)
[2022-08-04] MEDS: PREGABALIN 150 MG (LYRICA) CAPSULE PO SCH ×3 (08:34→20:02)
[2022-08-04] MEDS: meTOprolol TARTRATE 50 MG (LOPRESSOR) TAB PO SCH ×2 (08:34→20:01)
[2022-08-04] MEDS: CYCLOBENZAPRINE 10 MG (FLEXERIL) TAB PO SCH ×3 (08:34→20:01)
[2022-08-04] MEDS: PANTOPRAZOLE 20 MG TABLET (PROTONIX) PO SCH (08:34)
[2022-08-04 11:13] VITALS: BP 129/57
[2022-08-04 15:50] VITALS: BP 122/60
[2022-08-04 19:14] VITALS: BP 112/62
[2022-08-04 23:35] VITALS: BP 125/63
[2022-08-05 04:00] VITALS: BP 140/80
[2022-08-05] MEDS: inSUlin ASPART (NovoLOG) 1 UNIT/0.01 ML (CHARGE PER UNIT) SC SCH ×4 (05:23→21:55)
--- NOTE | 2022-08-05 07:14 | Progress Note - Surgery ---
MARCO ANTONIO THAKUR 08/05/22 0714: Subjective Date Seen by a Provider: Aug 05, 2022 Time Seen by a Provider: 07:08 Subjective/Events-last exam 62 M s/p Lt BKA day 4 is resting comfortably in bed. Pt denies any pain in LE. No complaints with BM flatus or voiding. Denies any fever, chills, n/v, SOB, CP, or urinary symptoms. Tolerating diet. Pt waiting to transfer to in-pt rehab to continues PT/OT. Wound covered by dressing and pt reports he was told "it is healing just fine and looks great" after last dressing change. Review of Systems General: No Chills, No Night Sweats HEENT: No Head Aches, No Dysphasia Pulmonary: No Dyspnea, No Cough Cardiovascular: No: Chest Pain, Palpitations Gastrointestinal: No: Nausea, Vomiting, Abdominal Pain Genitourinary: No Dysuria, No Frequency Musculoskeletal: No: back pain, leg pain Neurological: No: Numbness, Confusion Objective Exam Vital Signs Date Time Temp Pulse Resp B/P (MAP) Pulse Ox O2 Delivery O2 Flow Rate FiO2 08/05/22 04:00 36.8 97 16 140/80 (100) 91 Room Air 08/04/22 23:35 37.2 95 16 125/63 (83) 94 Room Air 08/04/22 20:00 Room Air 08/04/22 19:14 37.1 104 20 112/62 (79) 95 Room Air 08/04/22 15:50 37.2 96 20 122/60 (80) 95 Room Air 08/04/22 11:13 36.4 89 20 129/57 (81) 94 Room Air 08/04/22 08:00 Room Air 08/04/22 07:48 36.6 96 20 127/72 (90) 96 Room Air I & O 08/05/22 07:00 Intake Total 2240 ml Output Total 1150 ml Balance 1090 ml Capillary Refill : General Appearance: No Apparent Distress, WD/WN HEENT: PERRL/EOMI, Moist Mucous Membranes Neck: Normal Inspection, Non Tender, Supple Respiratory: Chest Non Tender, Lungs Clear, Normal Breath Sounds, No Accessory Muscle Use, No Respiratory Distress Cardiovascular: Regular Rate, Rhythm, No Murmur, Normal Peripheral Pulses Peripheral Pulses: 2+ Dorsalis Pedis (R), 2+ Radial Pulses (R), 2+ Radial Pulses (L) Gastrointestinal: normal bowel sounds, non tender, soft, no organomegaly, no pulsatile mass Extremity: Normal Inspection (Rt LE), Non Tender (Rt LE), No Calf Tenderness (Rt LE), Other (Left BKA with dressing in place C/D/I) Neurologic/Psychiatric: Alert, Oriented x3 Skin: Normal Color, Warm/Dry Lymphatic: No Adenopathy Results Lab Microbiology 08/01/22 MRSA Screen - Final, Complete MRSA not isolated Assessment/Plan Assessment/Plan Assessment/Plan A 62 year old male who is S/p Left BKA - POD 4 Hx of Left foot ulcer Hx of osteomyelitis Type 2 Diabetes mellitus Pt tolerated L BKA well Completed abx continue glucose management with current insulin regimen Incentive spirometry continue Pain control continue proper Wound care Inpatient rehab - awaiting Pt is agreeable with plan of care CLAY MARCELO DO 08/05/221958: Subjective Subjective/Events-last exam Patient pain controlled. Trying to take less. Having some issues with tape and has caused some blistering around incision and other parts of body. Not having any further bleeding from stump. Denies any other complaints. Denies n/v fever sweats chills shortness of breath or chest pain. Objective Exam General Appearance: No Apparent Distress HEENT: PERRL/EOMI, Moist Mucous Membranes Neck: Normal Inspection, Non Tender, Supple Respiratory: Chest Non Tender, No Accessory Muscle Use, No Respiratory Distress Cardiovascular: Regular Rate, Rhythm, No JVD Gastrointestinal: non tender, soft Extremity: Normal Inspection (Rt LE), Other (Left BKA with dressing in place C/D/I) Neurologic/Psychiatric: Alert, Oriented x3 Skin: Normal Color, Warm/Dry Lymphatic: No Adenopathy Assessment/Plan Assessment/Plan Assessment/Plan S/p Left BKA Hx of Left foot ulcer Hx of osteomyelitis Type 2 Diabetes mellitus Pt tolerated L BKA well Completed abx continue glucose management with current insulin regimen Incentive spirometry continue Pain control continue proper Wound care Inpatient rehab - awaiting Pt is agreeable with plan of care Start lovenox, since not having any further bleeding Supervisory-Addendum Brief Verification & Attestation Participated in pt care: history, MDM, physical Personally performed: exam, history, MDM, supervision of care Care discussed with: Medical Student Procedures: n/a Results interpretation: Verified all documentation Verification and Attestation of Medical Student E/M Service A medical student performed and documented this service in my presence. I reviewed and verified all information documented by the medical student and made modifications to such information, when appropriate. I personally performed the physical exam and medical decision making. Clay Marcelo, Aug 05, 2022,20:01 MARCO ANTONIO THAKUR Aug 05, 2022 07:14 CLAY MARCELO DO Aug 05, 2022 19:59
[2022-08-05] MEDS: PREGABALIN 150 MG (LYRICA) CAPSULE PO SCH ×3 (07:42→19:57)
[2022-08-05] MEDS: HYDROcodone/APAP 5 MG/325 MG (LORTAB) TAB PO PRN ×3 (07:42→19:57)
[2022-08-05] MEDS: PANTOPRAZOLE 20 MG TABLET (PROTONIX) PO SCH (07:43)
[2022-08-05] MEDS: meTOprolol TARTRATE 50 MG (LOPRESSOR) TAB PO SCH ×2 (07:43→19:57)
[2022-08-05] MEDS: CYCLOBENZAPRINE 10 MG (FLEXERIL) TAB PO SCH ×3 (07:43→19:57)
[2022-08-05] MEDS: OXYBUTYNIN (DITROPAN) 5 MG TAB PO SCH ×2 (07:43→19:57)
[2022-08-05 08:00] VITALS: BP 129/75
--- NOTE | 2022-08-05 11:28 | Physical Therapy Daily Note ---
PT Daily Note-Current Subjective Patient in bed pre tx, agrees to PT, has 9/10 pain in left leg. Pain Section J - Health Conditions 1. Rarely or not at all 2. Occasionally 3. Frequently 4. Almost constantly 8. Unable to answer Pain Effect on Sleep: 2 Pain Interference with Therapy: 2 Pain Interference w/Day-to-Day: 2 Appearance Patient in bed post tx with nurse call, phone, tray, all needs met. Mental Status Patient Orientation: Person, Place, Situation Transfers SCALE: Activities may be completed with or without assistive devices. 4-Fsscebesdo-zkfbhmg completes the activity by him/herself with no assistance from a helper. 5-Set-up or Clean-up Assistance-helper sets up or cleans up; patient completes activity. [place] assists only prior to or following the activity. 4-Supervision or Touching Assistance-helper provides verbal cues and/or touching/steadying and/or contact guard assistance as patient completes activity. Assistance may be provided throughout the activity or intermittently. 3-Partial/Moderate Assistance-helper does LESS THAN HALF the effort. [place] lifts, holds or supports trunk or limbs, but provides less than half the effort. 2-Substantial/Maximal Assistance-helper does MORE THAN HALF the effort. [place] lifts or holds trunk or limbs and provides more than half the effort. 7-Mvwglpdgm-bumefz does ALL the effort. Patient does none of the effort to complete the activity. Or, the assistance of 2 or more helpers is required for the patient to complete the activity. If activity was not attempted, code reason: 7-Patient Refused. 9-Not Applicable-not attempted and the patient did not perform the activity before the current illness, exacerbation or injury. 10-Not Attempted due to Environmental Limitations-(lack of equipment, weather restraints, etc.). 88-Not Attempted due to Medical Conditions or Safety Concerns. Roll Left & Right (QC): 4 Sit to Lying (QC): 4 Lying to Sitting/Side of Bed(Q: 4 Sit to Stand (QC): 4 SBA for supine <-> sit, CGA for sit to stand, cues for hand placement and positioning Gait Training Distance: 20' Walk 10 feet (QC): 4 Gait Persons Needed: 1 Gait Assistive Device: FWW CGA, has some unsteadiness, had one instance of needing steadying assist Exercises Supine Ex: Quad Set, Heel Slides (elevated leg and flex/ext knee), Straight leg raise, Hip abd/add Supine Reps: 20 (LLE) Treatments bed mobility and transfers, ambulation, LE ROM Assessment Current Status: Fair Progress slowly improving functional mobility PT Intermediate Goals Side Seam Envelope Machine Operator Goals PT Side Seam Envelope Machine Operator Goals Time Frame: Aug 08, 2022 Roll Left & Right (QC): 6 Sit to Lying (QC): 6 Lying-Sitting on Side/Bed(QC): 6 Sit to Stand (QC): 4 Chair/Gin-xd-Efdze Xfer(QC): 4 Walk 10 feet (QC): 4 PT Plan Problem List Problem List: Activity Tolerance, Functional Strength, Safety, Balance, Gait, Transfer, Bed Mobility, ROM Treatment/Plan Treatment Plan: Continue Plan of Care Treatment Plan: Bed Mobility, Education, Functional Activity Han, Functional Strength, Gait, Safety, Therapeutic Exercise, Transfers Treatment Duration: Aug 08, 2022 Frequency: 6 times per week Estimated Hrs Per Day: .25 hour per day Patient and/or Family Agrees t: Yes Safety Risks/Education Patient Education: Gait Training, Transfer Techniques, Correct Positioning, Safety Issues Teaching Recipient: Patient Teaching Methods: Demonstration, Discussion Response to Teaching: Reinforcement Needed Time Time In: 1103 Time Out: 1116 DATE: Aug 05, 2022 Total Billed Treatment Time: 13 Total Billed Treatment 1 visit FA CAROL URIAS PT Aug 05, 2022 11:28
[2022-08-05] MEDS ORDERED: HYPOCHLOROUS ACID/NaCl (VASHE) 250 ML IR PRN (11:30)
[2022-08-05 11:53] VITALS: BP 116/70
--- NOTE | 2022-08-05 14:14 | Occupational Ther Daily Note ---
OT Current Status-Daily Note Subjective Pt alert, sitting up in bed. Pt pleasant and agrees to therapy. No c/o pain. Mental Status/Objective Patient Orientation: Person, Place Attachments: IV ADL-Treatment Pt declined any ADLs at this time. Therapy Code Descriptions/Definitions Functional [place] Measure: 0=Not Assessed/NA 4=Minimal Assistance 1=Total Assistance 5=Supervision or Setup 2=Maximal Assistance 6=Modified [place] 3=Moderate Assistance 7=Complete IndependenceSCALE: Activities may be completed with or without assistive devices. 2-Fostjcoaqf-kuawtwi completes the activity by him/herself with no assistance from a helper. 5-Set-up or Clean-up Assistance-helper sets up or cleans up; patient completes activity. [place] assists only prior to or following the activity. 4-Supervision or Touching Assistance-helper provides verbal cues and/or touching/steadying and/or contact guard assistance as patient completes activity. Assistance may be provided throughout the activity or intermittently. 3-Partial/Moderate Assistance-helper does LESS THAN HALF the effort. [place] lifts, holds or supports trunk or limbs, but provides less than half the effort. 2-Substantial/Maximal Assistance-helper does MORE THAN HALF the effort. [place] lifts or holds trunk or limbs and provides more than half the effort. 7-Rwjwfuhdo-hqjiqt does ALL the effort. Patient does none of the effort to complete the activity. Or, the assistance of 2 or more helpers is required for the patient to complete the activity. If activity was not attempted, code reason: 7-Patient Refused. 9-Not Applicable-not attempted and the patient did not perform the activity before the current illness, exacerbation or injury. 10-Not Attempted due to Environmental Limitations-(lack of equipment, weather restraints, etc.). 88-Not Attempted due to Medical Conditions or Safety Concerns. Other Treatment Pt complete 2 B UE exercises against gravity to increase strength and activity tolerance for daily functional tasks. Skilled instruction for correct technique. Due to pt's loquaciousness increased time to complete exercises. Pt tolerated well though stated that arms were fatigue with exercising. After session, pt sitting up in bed with call light/phone in reach. All needs met in room. OT Runner Out Goals Runner Out Goals Time Frame: Aug 09, 2022 Toileting Hygiene (QC): 4 Shower/Bathe Self (QC): 5 Lower Body Dressing (QC): 4 On/Off Footwear (QC): 5 Additional Goals: 1-Demonstrate ADL Tasks, 2-Verbalize Understanding, 3- ImproveStrength/Han 1=Demonstrate adherence to instructed precautions during ADL tasks. 2=Patient will verbalize/demonstrate understanding of assistive devices/modifications for ADL. 3=Patient will improve strength/tolerance for activity to enable patient to perform ADL's. OT Education/Plan Problem List/Assessment Assessment: Decreased UE Strength Pt would benefit from skilled OT services in order to increase safety and independence with ADLS in order to maximize LOF for safe return home with spouse. Discharge Recommendations Plan/Recommendations: Continue POC Treatment Plan/Plan of Care Patient would benefit from OT for education, treatment and training to promote independence in ADL's, mobility, safety and/or upper extremity function for ADL's. Plan of Care: ADL Retraining, Functional Mobility, UE Funct Exercise/Act Treatment Duration: Aug 09, 2022 Frequency: 3 times per week (3-5 times per week) Estimated Hrs Per Day: .25 hour per day Agreement: Yes Rehab Potential: Good Time Start Time: 12:45 Stop Time: 13:03 DATE: Aug 05, 2022 Total Time Billed (hr/min): 18 Billed Treatment Time 1 visit-EX 1 (18 min) ROMINA ALCAZAR Aug 05, 2022 14:14
[2022-08-05 16:12] VITALS: BP 124/81
--- NOTE | 2022-08-05 16:25 | Progress Note - Hospitalist ---
Subjective HPI/CC On Admission Date Seen by Provider: Aug 05, 2022 Time Seen by Provider: 09:15 62 year old male with history of Insulin dependent type 2 diabetes, tachycardia, hyperlipidemia, depression, chronic bilateral neuropathy who is S/P left BKA for chronic osteomyelitis of left foot. Dr. Marcelo has consulted Dr. Parry for management of patient's chronic health conditions. Patient was awake in bed eating lunch when seen. He is having significant pain in his left leg but reports feeling well otherwise. He denies headache, lightheadedness, dizziness, CP, palpitations, SOB, abd pain, N/V/D. Subjective/Events-last exam He is doing well. He has no complaints. Objective Exam Vital Signs Vital Signs Date Time Temp Pulse Resp B/P (MAP) Pulse Ox O2 Delivery O2 Flow Rate FiO2 08/05/22 16:12 37.0 96 20 124/81 (95) 93 Room Air 08/04/22 06:21 0.00 Capillary Refill : General Appearance: No Apparent Distress, Obese Respiratory: Lungs Clear, No Respiratory Distress Cardiovascular: Regular Rate, Rhythm, No Murmur Gastrointestinal: Normal Bowel Sounds, Soft Extremity: Normal Inspection, No Pedal Edema, Other (left BKA, stump wrapped) Neurologic/Psychiatric: Alert, Normal Mood/Affect Skin: Normal Color, Warm/Dry Results/Procedures Lab Patient resulted labs reviewed. Assessment/Plan Assessment and Plan Assess & Plan/Chief Complaint s/p BKA Chronic osteomyelitis Surgery primary Pain regimen Prosthetics consulted IDDMII Peripheral neuropathy Sliding scale insulin HTN HLD Continue home meds Obesity Clinically significant, no acute management needs Diagnosis/Problems Diagnosis/Problems (1) Chronic osteomyelitis of left foot Status: Acute (2) Status post below-knee amputation of left lower extremity Status: Acute (3) T2DM (type 2 diabetes mellitus) Status: Chronic Qualifiers: Diabetes mellitus senior care insulin use: with senior care use Diabetes mellitus complication status: with skin complications Diabetes mellitus complication detail: with foot ulcer Qualified Codes: E11.621 - Type 2 diabetes mellitus with foot ulcer; L97.509 - Non-pressure chronic ulcer of other part of unspecified foot with unspecified severity; Z79.4 - retirement (current) use of insulin (4) HLD (hyperlipidemia) Status: Chronic (5) Obesity Status: Chronic REGINALDO FIELDS MD Aug 05, 2022 16:25
[2022-08-05 19:13] VITALS: BP 111/77
[2022-08-05] MEDS: morphine INJ 4 MG/ML 1 ML (VIAL/SYRINGE) IVP PRN (22:45)
[2022-08-05 23:35] VITALS: BP 122/74
[2022-08-06 03:29] VITALS: BP 125/76
[2022-08-06] MEDS: inSUlin ASPART (NovoLOG) 1 UNIT/0.01 ML (CHARGE PER UNIT) SC SCH (05:46)
--- NOTE | 2022-08-06 06:45 | Progress Note - Hospitalist ---
Subjective HPI/CC On Admission Date Seen by Provider: Aug 06, 2022 Time Seen by Provider: 06:40 62 year old male with history of Insulin dependent type 2 diabetes, tachycardia, hyperlipidemia, depression, chronic bilateral neuropathy who is S/P left BKA for chronic osteomyelitis of left foot. Dr. Marcelo has consulted Dr. Parry for management of patient's chronic health conditions. Patient was awake in bed eating lunch when seen. He is having significant pain in his left leg but reports feeling well otherwise. He denies headache, lightheadedness, dizziness, CP, palpitations, SOB, abd pain, N/V/D. Subjective/Events-last exam 62 M s/p Lt BKA day 5 resting comfortably in bed. Wound covered by dressing with no surrounding erythema or visible drainage. Pt denies pain, SOB, CP, fever, chills, n/v. Tolerating diet. BMs and voids w/o complaints. Per SS, Pt's insurance approved in-pt rehab on 08/06/21. Review of Systems General: No Chills, No Night Sweats HEENT: No Head Aches, No Dysphasia Pulmonary: No Dyspnea, No Cough Cardiovascular: No: Chest Pain, Palpitations Gastrointestinal: No: Nausea, Vomiting, Abdominal Pain Genitourinary: No Dysuria, No Incontinence Musculoskeletal: No: leg pain, foot pain Neurological: No: Weakness, Numbness Objective Exam Vital Signs Vital Signs Date Time Temp Pulse Resp B/P (MAP) Pulse Ox O2 Delivery O2 Flow Rate FiO2 08/06/22 03:29 36.0 87 16 125/76 (92) 94 Room Air 08/04/22 06:21 0.00 Capillary Refill : General Appearance: No Apparent Distress, WD/WN HEENT: PERRL/EOMI, Moist Mucous Membranes Neck: Normal Inspection, Non Tender Respiratory: Chest Non Tender, Lungs Clear, Normal Breath Sounds, No Accessory Muscle Use, No Respiratory Distress Cardiovascular: Regular Rate, Rhythm, No Murmur, Normal Peripheral Pulses Gastrointestinal: Normal Bowel Sounds, No Organomegaly, No Pulsatile Mass, Non Tender Back: Normal Inspection; No Decreased Range of Motion Extremity: Normal Capillary Refill, Non Tender, No Calf Tenderness, Other (rt BKA) Neurologic/Psychiatric: Alert, Oriented x3, No Motor/Sensory Deficits Skin: Normal Color, Warm/Dry Results/Procedures Lab Patient resulted labs reviewed. MARCO ANTONIO THAKUR Aug 06, 2022 06:45
--- NOTE | 2022-08-06 06:47 | Progress Note - Surgery ---
MARCO ANTONIO THAKUR 08/06/22 0647: Subjective Date Seen by a Provider: Aug 06, 2022 Time Seen by a Provider: 06:47 Subjective/Events-last exam 62 M s/p Lt BKA day 5 resting comfortably in bed. Wound covered by dressing with no surrounding erythema or visible drainage. Pt denies pain, SOB, CP, fever, c hills, n/v. Tolerating diet. BMs and voids w/o complaints. Per SS, Pt's insurance approved in-pt rehab on 08/06/21. Wound appeared to be healing nicely with minimal erythema + discharge and mild blistering at site of adhesive tape. No signs of acute infection Review of Systems General: No Chills, No Night Sweats HEENT: No Head Aches, No Dysphasia Pulmonary: No Dyspnea, No Cough Cardiovascular: No: Chest Pain, Palpitations Gastrointestinal: No: Nausea, Vomiting, Abdominal Pain Genitourinary: No Dysuria, No Incontinence Musculoskeletal: No: leg pain, foot pain Neurological: No: Weakness, Numbness Objective Exam Vital Signs Date Time Temp Pulse Resp B/P (MAP) Pulse Ox O2 Delivery O2 Flow Rate FiO2 08/06/22 03:29 36.0 87 16 125/76 (92) 94 Room Air 08/05/22 23:35 36.8 87 16 122/74 (90) 93 Room Air 08/05/22 20:06 Room Air 08/05/22 19:13 36.9 99 20 111/77 (88) 92 Room Air 08/05/22 16:12 37.0 96 20 124/81 (95) 93 Room Air 08/05/22 11:53 36.6 89 18 116/70 (85) 94 Room Air 08/05/22 08:00 36.4 99 18 129/75 (93) 96 Room Air 08/05/22 07:33 Room Air I & O 08/06/22 07:00 Intake Total 3050 ml Balance 3050 ml Capillary Refill : General Appearance: No Apparent Distress, WD/WN HEENT: PERRL/EOMI, Moist Mucous Membranes Neck: Normal Inspection, Non Tender Respiratory: Chest Non Tender, Lungs Clear, Normal Breath Sounds, No Accessory Muscle Use, No Respiratory Distress Cardiovascular: Regular Rate, Rhythm, No Murmur, Normal Peripheral Pulses Peripheral Pulses: 2+ Dorsalis Pedis (R), 2+ Radial Pulses (R), 2+ Radial Pulses (L) Gastrointestinal: normal bowel sounds, non tender, soft, no pulsatile mass Extremity: Normal Capillary Refill, Non Tender, No Calf Tenderness, Other (rt BKA) Neurologic/Psychiatric: Alert, Oriented x3, No Motor/Sensory Deficits Skin: Normal Color, Warm/Dry Lymphatic: No Adenopathy Results Lab Microbiology 08/01/22 MRSA Screen - Final, Complete MRSA not isolated Assessment/Plan Assessment/Plan Assessment/Plan Assesment: S/p Left BKA Hx of Left foot ulcer Hx of osteomyelitis Type 2 Diabetes mellitus plan: Pt tolerated L BKA well Completed abx continue glucose management with current insulin regimen continue Incentive spirometry continue Pain control continue proper Wound care Inpatient rehab - approved Pt is agreeable with plan of care continue lovenox, since not having any further bleeding Pt insurance approved in-pt rehab on 08/06/22- pt to transfer to unit today to increase mobility and strength CLAY MARCELO DO 08/06/223: Subjective Subjective/Events-last exam Doing well. Pain controlled. Going to rehab today. No new complaints. Denies n/v fever sweats chills shortness of breath or chest pain. Objective Exam General Appearance: No Apparent Distress, WD/WN HEENT: PERRL/EOMI, Normal ENT Inspection Neck: Normal Inspection Respiratory: Chest Non Tender, No Accessory Muscle Use, No Respiratory Distress Cardiovascular: Regular Rate, Rhythm, No JVD Gastrointestinal: non tender, soft Extremity: Other (left bka, incision had a couple area of blistering, but no signs of infection) Neurologic/Psychiatric: Alert, Oriented x3 Skin: Normal Color, Warm/Dry Lymphatic: No Adenopathy Assessment/Plan Assessment/Plan Assessment/Plan s/p left bka continue wound care technology sales consultant inpatient rehab pain control Supervisory-Addendum Brief Verification & Attestation Participated in pt care: history, MDM, physical Personally performed: exam, history, MDM, supervision of care Care discussed with: Medical Student Procedures: n/a Results interpretation: Verified all documentation Verification and Attestation of Medical Student E/M Service A medical student performed and documented this service in my presence. I reviewed and verified all information documented by the medical student and made modifications to such information, when appropriate. I personally performed the physical exam and medical decision making. Clay Marcelo, Aug 06, 2022,21:43 MARCO ANTONIO THAKUR Aug 06, 2022 06:47 CLAY MARCELO DO Aug 06, 2022 21:43
[2022-08-06 07:08] VITALS: BP 125/68
[2022-08-06] MEDS ORDERED: ENOXAPARIN 40 MG/0.4 ML (LOVENOX) SYR SC SCH (09:00)
[2022-08-06] MEDS: HYDROcodone/APAP 5 MG/325 MG (LORTAB) TAB PO PRN (09:14)
[2022-08-06] MEDS: OXYBUTYNIN (DITROPAN) 5 MG TAB PO SCH (09:14)
[2022-08-06] MEDS: PREGABALIN 150 MG (LYRICA) CAPSULE PO SCH (09:14)
[2022-08-06] MEDS: CYCLOBENZAPRINE 10 MG (FLEXERIL) TAB PO SCH (09:14)
[2022-08-06] MEDS: PANTOPRAZOLE 20 MG TABLET (PROTONIX) PO SCH (09:15)
[2022-08-06] MEDS: meTOprolol TARTRATE 50 MG (LOPRESSOR) TAB PO SCH (09:15)
[2022-08-06 10:07] VITALS: BP 125/68
== END 2022-08-06 09:55 | DRG 617 ==
LOC: 4TH 07:40 → SURG 07:41 → 4TH 12:10
PROVIDERS: ADMIT Surgery; ATTEND Surgery
PROC: 0Y6J0Z2 Detachment at Left Lower Leg, Mid, Open Approach (ICD-10-PCS; principal; 2022-08-01 09:32)
DX: E11.69 Type 2 diabetes mellitus with other specified complication (principal); M86.672 Other chronic osteomyelitis, left ankle and foot; E11.621 Type 2 diabetes mellitus with foot ulcer; R00.0 Tachycardia, unspecified; E78.5 Hyperlipidemia, unspecified; E11.40 Type 2 diabetes mellitus with diabetic neuropathy, unspecified; E66.9 Obesity, unspecified; Z68.35 Body mass index [BMI] 35.0-35.9, adult; Z79.4 Long term (current) use of insulin
CPT/HCPCS: 36415; 80048; 82947; 85027; 87081; 94664

== ENCOUNTER 2022-08-06 09:50 | Inpatient (IN) | payer OTHER, MEDICARE ==
[~2022-08-06] VITALS: Ht 177.8 cm; Wt 108.6 kg
[~2022-08-06 09:50] MED LIST changes: +ACETAMINOPHEN 325 MG TABLET PO PRN; +ALPRAZolam 0.25 MG (XANAX) TAB PO PRN; +ASPI325T32 PO; +BISACODYL 10 MG SUPP (DULCOLAX) PR PRN; +CALCIUM CARBONATE 500 MG (TUMS) TAB.CHEW PO PRN; +DOCUSATE SODIUM 100 MG (COLACE) CAP PO PRN; +FLEET ENEMA ADULT 1 EA BTL PR PRN; +IBUP-1780 PO; +INSU100I32 SQ; +INSU100I40 SQ; +INSU200I4 SQ; +LACTULOSE SYRUP 10GM/15ML (ENULOSE) 30ML UDC PO PRN; +LOPERAMIDE 2 MG (IMODIUM) TABLET PO PRN; +MELATONIN 3 MG TABLET PO PRN; +MULT-1029 PO; +OMEP-254 PO; +ONDANSETRON 4 MG (ZOFRAN) ORAL DISSOLVE TAB PO PRN; +diphenhydrAMINE 25 MG TAB (BENADRYL) PO PRN; +guaiFENesin/CODEINE (ROBITUSSIN AC) 10ML UDC PO PRN
--- NOTE | 2022-08-06 10:16 | Occupational Therapy Eval ---
OT Evaluation-General/PLF Medical Diagnosis Admission Date Medical Diagnosis: s/p L BKA Onset Date: Aug 01, 2022 Therapy Diagnosis Therapy Diagnosis: decreased ADL status Referral Physician: Corbin Mar Reason: Evaluation/Treatment Medical History Additional Medical History DM, b/l rotator cuff revision of repair. [place] with osteomyelitis off and on since 2015 resulting in all toes L foot amputated in 2017. Current History s/p L BKA 08/01/22. Transfer to [facility] 08/06/22 Social History Home: Single Level Current Living Status: Spouse Entry Into Home: Ramp ADL-Prior Level of Function SCALE: Activities may be completed with or without assistive devices. 3-Qvdmuvbtdx-eyrkoma completes the activity by him/herself with no assistance from a helper. 5-Set-up or Clean-up Assistance-helper sets up or cleans up; patient completes activity. [place] assists only prior to or following the activity. 4-Supervision or Touching Assistance-helper provides verbal cues and/or touching/steadying and/or contact guard assistance as patient completes activity. Assistance may be provided throughout the activity or intermittently. 3-Partial/Moderate Assistance-helper does LESS THAN HALF the effort. [place] lifts, holds or supports trunk or limbs, but provides less than half the effort. 2-Substantial/Maximal Assistance-helper does MORE THAN HALF the effort. [place] lifts or holds trunk or limbs and provides more than half the effort. 2-Pzhzeaugl-pwqyei does ALL the effort. Patient does none of the effort to complete the activity. Or, the assistance of 2 or more helpers is required for the patient to complete the activity. If activity was not attempted, code reason: 7-Patient Refused. 9-Not Applicable-not attempted and the patient did not perform the activity before the current illness, exacerbation or injury. 10-Not Attempted due to Environmental Limitations-(lack of equipment, weather restraints, etc.). 88-Not Attempted due to Medical Conditions or Safety Concerns. ADL PLOF Comments Pt reports IND with ADLs and functional mobility at [facility], no AD. He has a walk in shower with extended bath bench. Pt uses a sock aide to don socks, shoe horn to doff. Self Care: Independent Functional Cognition: Independent DME/Equipment: Bath Bench, Shower, Sock Aid OT Current Status Subjective Pt agreeable to OT evaluation followed by OT/PT cotreat in order to focus on higher level balance tasks. Pt's spouse present throughout tx. Mental Status/Objective Patient Orientation: Person, Place, Time, Situation Current Glasses/Contacts: Yes Hand Dominance: Right Upper Extremity ROM WFL, BUE shoulder flexion to approx 160 degrees Upper Extremity Coordination WFL Upper Extremity Strength 4+/5 BUEs. ADL-Treatment Eating (QC): 6 Oral Hygiene (QC): 5 Shower/Bathe Self (QC): 3 (min A with RLE and buttocks.) Upper Body Dressing (QC): 5 Lower Body Dressing (QC): 3 (min A) On/Off Footwear (QC): 1 Toileting Hygiene (QC): 3 (mod A) Other Treatments OT evaluation complete. OT/PT cotreat due to skill of 2 clinicians required w hich a regional rehabilitation director could not perform in order to coordinate UE/LEs, decrease fall risk, focus on higher level balance tasks, and due to pt's limitations in strength, mobility, transfers and activity tolerance. OT focused on UE placement, UE reaching tasks in standing, ADLs, and cues for sequencing and safety. PT focused on LE placement, gross overall movement, transfers/mobility, and dynamic standing balance. Pt donned clothes at w/c, declined showering on this date. Based on ADL assessment, pt would require assistance washing RLE and buttocks. Pt able don shirt after set up assistance, min A LE dressing (pant hike), total assist R gripper sock. Pt performed functional mobility and transfers including bed mobility, w/c mobility, car transfer, functional mobil ity using FWW on even and uneven surface, and 1 step. Pt stood in parallel bars, completing BUE reaching tasks, x10 reps alternating arm raises, letting go of parallel bar with 1 hand at a time. Pt then completed reaching activity across midline, pt able to grasp 1 ring on ring arc at a time and bring across midline to other side. Pt completed ring arc x1 round BUEs. Pt took seated rest break, then stood and completed balloon batting task, holding onto parallel bar with 1 hand at a time, hitting balloon in all planes BUEs. Pt propelled w/c around [facility], completed community mobility on elevators and in hallways, and performed ramp via w/c. Pt returned to his room, transferring to recliner. Post tx, pt in recliner, call light in reach and all needs met. IND rolling and supine to/from sit, CGA sit to/from stand and transfers, CGA car transfer. Occasional cues required for hand placement and positioning. w/c mobility 300'x2, SBA. Functional mobility using FWW 20', CGA. Education OT Patient Education: Correct positioning, Energy conservation, Modified ADL techniques, Progress toward Goal/Update tx plan, Purpose of tx/functional activities, Rehab process Teaching Recipient: Patient Teaching Methods: Discussion Response to Teaching: Verbalize Understanding BIMS CAM BIMS Expression of Ideas and Wants: Without Difficulty Understanding Verbal Content: Usually Understands (ocassional repetition of instructions required) Brief Interview/Mental Status: Yes IRF DIANA BIMS: IRF DIANA BIMS Response (Comments) Value Repitition of Three Words Two 2 Recalls Socks Yes, No Cue Required 2 Recalls Blue Yes, No Cue Required 2 Recalls Bed Yes, No Cue Required 2 Year Correct 3 Month Accurate Within 5 Days 2 Day Correct 1 Total 14 CAM Mental Status Change/Baseline: 0 Inattention: 0 Disorganized thinkin Altered level of consciousness: 0 OT Short Term Goals Short Term Goals Time Frame: Aug 16, 2022 Toileting hygiene: 4 Shower/bathe self: 4 Lower body dressin Putting on/taking off footwear: 5 OT Mcfp Goals Mcfp Goals Time Frame: Aug 30, 2022 Eating (QC): 6 Oral Hygiene (QC): 6 Toileting Hygiene (QC): 6 Shower/Bathe Self (QC): 5 Upper Body Dressing (QC): 6 Lower Body Dressing (QC): 6 On/Off Footwear (QC): 6 Additional Goals: 1-Demonstrate ADL Tasks, 2-Verbalize Understanding, 3- ImproveStrength/Han 1=Demonstrate adherence to instructed precautions during ADL tasks. 2=Patient will verbalize/demonstrate understanding of assistive devices/modifications for ADL. 3=Patient will improve strength/tolerance for activity to enable patient to perform ADL's. OT Education/Plan Problem List/Assessment Assessment: Decreased Activ Tolerance, Decreased UE Strength, Impaired Funct Balance, Impaired I ADL's, Impaired Self-Care Skills Discharge Recommendations Plan/Recommendations: Continue POC Treatment Plan/Plan of Care Patient would benefit from OT for education, treatment and training to promote independence in ADL's, mobility, safety and/or upper extremity function for ADL's. Plan of Care: ADL Retraining, Functional Mobility, Group Exercise/Act as Ind, UE Funct Exercise/Act Treatment Duration: Aug 30, 2022 Frequency: At least 5 of 7 days/Wk (IRF) Estimated Hrs Per Day: 1.5 hours per day Agreement: Yes Rehab Potential: Good Time Start Time: 10:00 Stop Time: 11:20 DATE: Aug 06, 2022 Total Time Billed (hr/min): 80 Billed Treatment Time OT eval 10', Cotreat 70' 1, EVM (10'), ADL (20'), FA 3 (50') KARAN GONSALES OT Aug 06, 2022 10:16
[2022-08-06 10:26] VITALS: BP 149/65
--- NOTE | 2022-08-06 11:05 | ST Cognitive Linguistic Eval ---
Speech Evaluation-General Medical Diagnosis s/p L BKA Onset Date: Aug 01, 2022 Therapy Diagnosis Therapy Diagnosis: Intact (Baseline) Cognition Precautions Precautions: Fall, Pressure Ulcer Precautions/Isolations: Fall Prevention, Standard Precautions, Pressure Ulcer Referral Referring Physician: Dr. Alaniz Reason for Referral: Evaluation/Treatment Medical History Reviewed History: Yes Social History Current Living Status: Spouse Speech PLF-Current Status Prior Level of Function The patient denied prior or current concerns with his speech, language of cognition. Subjective The patient was seated upright in his recliner, awake and alert, upon entrance to his room by the clinician. The patient greeted the clinician appropriately and was agreeable to participation in the cognitive linguistic treatment session. The patient's spouse was present at bedside and remained for the evaluation. Language Eval: Auditory Comprehends Simple Yes/No Ques: Functional Indent/Objects Multiple Roman: Functional Follows 1-Step Commands: Functional Follows General Conversations: Functional Language Eval: Verbal Language Completes Spontaneous Greeting: Functional Produces Auto, Serial Info: Functional Word Finding: Functional Requests Basic Needs: Functional States Basic Personal Info: Functional Language Evaluation: Reading Follows Simple Written Direct: Functional Language Evaluation: Writing Writes to Simple Dictation: Functional Cognitive Patient Orientation The patient was independently oriented to self, location, month, day of the week, date and year. Objective Cognitive Domain Attention: WNL Memory: WNL Problem Solving: Functional Executive Functions: WNL Visuospatial Skills: WNL Composite Severity Rating: WNL Clock Drawing Severity Rating: WNL Objective Formal/Standardized Tests [facility] Mental Status Exam (UMS) Results The patient demonstrated a result of +27/30 on the SLUMS which correlates to cognitive linguistic skills within normal limits. Oral Motor/Speech Production The patient does not display dysarthria or apraxia of speech. The patient is 100% intelligible in known and unknown contexts. Impression The patient demonstrated cognitive linguistic skills within normal limits and at baseline. Speech-Plan Treatment Plan Speech Therapy Treatment Plan: Discontinue ST Treatment Duration: Aug 06, 2022 Frequency: 1 time per week Estimated Hrs Per Day: .25 hour per day Rehab Potential: Good Pt/Family Agrees to Plan: Yes Safety Risks/Education Teaching Recipient: Patient, Significant Other Teaching Methods: Discussion Response to Teaching: Verbalize Understanding Education Topics Provided: Results, Recommendations, Plan of Care Time Speech Therapy Time In: 11:20 Speech Therapy Time Out: 11:40 DATE: Aug 06, 2022 Total Billed Time: 20 Billed Treatment Time 1, [id number] LOZA [facility]IZ[facility] ST Aug 06, 2022 11:04
[2022-08-06] MEDS: SENNA W/DOCUSATE (SENOKOT S) TABLET PO SCH ×2 (11:11→21:00)
[2022-08-06] MEDS: DOCUSATE SODIUM 100 MG (COLACE) CAP PO SCH ×2 (11:11→21:00)
[2022-08-06] MEDS: polyethylene glycoL POWDER 17 GM (MIRALAX) PACK PO SCH ×2 (11:11→21:00)
--- NOTE | 2022-08-06 11:13 | Physical Therapy Evaluation ---
PT Evaluation-General Medical Diagnosis Admission Date Aug 06, 2022 at 09:50 Medical Diagnosis: s/p L BKA Onset Date: Aug 01, 2022 Therapy Diagnosis Therapy Diagnosis: impaired mobility Referral Physician: Vale Alaniz DO Reason for Referral: Evaluation/Treatment Medical History Pertinent Medical History: DM Reviewed History: Yes Social History Home: Multilevel (has basement, patient states he doesn't have to go down there) Current Living Status: Spouse Entry Into Home: Ramp Prior Prior Level of Function SCALE: Activities may be completed with or without assistive devices. 8-Aocurkvgdj-gdywheb completes the activity by him/herself with no assistance from a helper. 5-Set-up or Clean-up Assistance-helper sets up or cleans up; patient completes activity. [place] assists only prior to or following the activity. 4-Supervision or Touching Assistance-helper provides verbal cues and/or touching/steadying and/or contact guard assistance as patient completes activity. Assistance may be provided throughout the activity or intermittently. 3-Partial/Moderate Assistance-helper does LESS THAN HALF the effort. [place] lifts, holds or supports trunk or limbs, but provides less than half the effort. 2-Substantial/Maximal Assistance-helper does MORE THAN HALF the effort. [place] lifts or holds trunk or limbs and provides more than half the effort. 2-Eidciynno-xhwglr does ALL the effort. Patient does none of the effort to complete the activity. Or, the assistance of 2 or more helpers is required for the patient to complete the activity. If activity was not attempted, code reason: 7-Patient Refused. 9-Not Applicable-not attempted and the patient did not perform the activity before the current illness, exacerbation or injury. 10-Not Attempted due to Environmental Limitations-(lack of equipment, weather restraints, etc.). 88-Not Attempted due to Medical Conditions or Safety Concerns. Bed Mobility: 6 Transfers (B,C,W/C): 6 Gait: 6 Stairs: 6 Indoor Mobility (Ambulation): Independent Stairs: Independent PT Evaluation-Current Subjective Patient in bed pre tx, agrees to PT, has 9/10 pain in left leg. Will be co- treating with OT for part of tx due to poor patient mobility, strength, endurance, pain with activity, coordinate UE and LE during activity, safety and reduce risk of falls. Pain Section J - Health Conditions 1. Rarely or not at all 2. Occasionally 3. Frequently 4. Almost constantly 8. Unable to answer Pain Effect on Sleep: 3 Pain Interference with Therapy: 3 Pain Interference w/Day-to-Day: 3 Pt/Family Goals to be independent at home Objective Patient Orientation: Person, Place, Situation ROM/Strength ROM Lower Extremities WNL Strength Lower Extremities LLE (hip flexion 3+/5), RLE (hip flexion 3+/5, knee extension 4/5, knee flexion 4/5, dorsiflexion 4/5) Sensory Vision: Wears Glasses Hearing: Functional Hand Dominance: Right Sensation Right Lower Extremit: Intact Transfers Roll Left & Right (QC): 6 Sit to Lying (QC): 6 Lying to Sitting/Side of Bed(Q: 6 Sit to Stand (QC): 4 Chair/Oou-to-Hpaby Xfer(QC): 4 Toilet Transfer (QC): 4 Car Transfer (QC): 4 Patient performs rolling and supine <-> sit with independence, sit <-> stand and transfers CGA, car transfer CGA. Patient needs occasional cues for hand placement and positioning. Gait Walk 10 feet (QC): 4 Walk 50 ft with 2 Turns(QC): 88 Walk 150 ft (QC): 88 Walking 10ft/uneven surface-QC: 4 Distance: 20'x2 Gait Assistive Device: FWW Comments/Gait Description Patient can ambulate 20' with a rolling walker with CGA (including 10' over an uneven surface). Patient has poor foot clearance but is able to take small hops. Wheelchair Training Wheel 50 ft with 2 turns (QC): 4 Wheel 150 ft (QC): 4 Type of Wheelchair: Manual 300'x2, patient also practiced going up and down a long ramp, he was able to go up the ramp forward using only his arms Stairs #of Steps: 1 1 Step (curb) (QC): 4 4 Steps (QC): 88 12 Steps (QC): 88 Walking Assistive Device: Walker Patient can go up and down 1 step using a rolling walker with CGA, cues for safety and positioning, patient had a lot of difficulty hopping up that high, needed careful guarding Balance Sitting Static: Normal Sitting Dynamic: Normal Standing Static: Fair Standing Dynamic: Fair Picking up an Object (QC): 4 (CGA using a light rail train operator) Treatment Patient also performed standing reaching and balloon activity in the parallel bars with PT working on balance and positioning while standing. PT performed bed mobility and transfers, ambulation, WC mobility, standing ac tivities (reaching and balloon), stair training, OT performed dressing, balloon and reaching activity, UE positioning and safety during activity Assessment/Needs Patient in recliner post tx with nurse call, phone, tray, all needs met. Patient has impaired mobility, strength, endurance. Just needs CGA for sit to stand and transfers, and ambulates short distances. Rehab Potential: Fair PT Short Term Goals Short Term Goals Time Frame: Aug 13, 2022 Sit to stand: 4 (SBA) Chair/kje-lt-vwgrg transfer: 4 (SBA) Walk 10 feet: 4 (SBA) PT Senior Internet Sales Consultant Goals Senior Internet Sales Consultant Goals PT Long-Term Goals Time Frame: Aug 20, 2022 Roll Left to Right (QC): 6 Sit to Lying (QC): 6 Lying-Sitting on Side/Bed(QC): 6 Sit to Stand (QC): 6 Chair/Dir-pi-Dhjql Xfer(QC): 6 Toilet/Commode Transfer (QC): 6 Car Transfer (QC): 6 Does the Patient Walk: Yes Walk 10 feet (QC): 6 Walk 10ft-Uneven Surface(QC): 6 Walk 50ft with 2 Turns (QC): 6 Walk 150 ft (QC): 88 Wheel 50 feet with 2 turns (QC: 6 Wheel 150 feet: 6 1 Step (curb) (QC): 4 (SBA) 4 Steps (QC): 88 12 Steps (QC): 88 Picking up an Object (QC): 4 (SBA using a light rail train operator) PT Plan Problem List Problem List: Activity Tolerance, Functional Strength, Safety, Balance, Gait, Transfer, Bed Mobility, ROM Treatment/Plan Treatment Plan: Continue Plan of Care Treatment Plan: Bed Mobility, Education, Functional Activity Han, Functional Strength, Group Therapy, Gait, Safety, Therapeutic Exercise, Transfers Treatment Duration: Aug 20, 2022 Frequency: At least 5 of 7 days/Wk (IRF) Estimated Hrs Per Day: 1.5 hours per day Patient and/or Family Agrees t: Yes Safety Risks/Education Patient Education: Gait Training, Transfer Techniques, Steps, Correct Positioning, W/C Management, Safety Issues Teaching Recipient: Patient Teaching Methods: Demonstration, Discussion Response to Teaching: Reinforcement Needed Discharge Recommendations Plan Patient will perform bed mobility and transfer training, balance and endurance training, functional strengthening, stair training, gait training, and education, to improve functional mobility and independence at home. Therapy Discharge Recommendati: Home & Family, Post Acute PT Time Time In: 0950 Time Out: 1120 DATE: Aug 06, 2022 Total Billed Treatment Time: 80 Total Billed Treatment 1 visit EVM 10' FA 70' (only charge 4 units) [id number] PT eval, [id number] OT eval, co-treat [id number] CAROL STEELE PT Aug 06, 2022 11:13
--- NOTE | 2022-08-06 11:15 | Progress Note ---
LYLE SINHA 08/06/22 1115: Progress Note Chief complaint: Chronic osteomyelitis of the left foot, now s/p left below- knee amputation HPI: 62 y/o M with history of T2DM (on insulin), chronic bilateral neuropathy, chronic osteomyelitis of L foot, tachycardia, hyperlipidemia, depression. Underwent left BKA on 08/01/22. Review of systems: Positive for L leg pain. Negative for fever, chills, headache, changes in vision/hearing, tingling/numbness, chest pain, shortness of breath, cough, nausea, vomiting, diarrhea, abdominal pain, urinary issues. Medical history: (see HPI) Surgical history: - L BKA - Had all toes on L foot amputated in 2017 - bilateral rotator cuff repair - ORIF R forearm (plate & screws in place) - Cholecystectomy Medications: Active Reported Tresiba Flextouch U-200 (Insulin Degludec) 200 Unit/Ml (3 Ml) Insuln.pen 100 Unit SQ HS Ibuprofen 800 Mg Tablet 800 Mg PO TID PRN Omeprazole Magnesium 20 Mg Capsule.dr 20 Mg PO DAILY Aspirin EC (Aspirin) 325 Mg Tablet.dr 325 Mg PO HS Centrum Silver Tablet (Multivit-Min/FA/Lycopene/Lut) 0.4 Mg-300 Mcg-250 Mcg Tablet 1 Each PO 1800 Fiasp 100 Unit/ml Flextouch (Insulin Aspart (Niacinamide)) 100 Unit/Ml (3 Ml) Insuln.pen Unit SQ PC USES PER SLIDING SCALE Pregabalin 150 Mg Capsule 150 Mg PO TID Ozempic (Semaglutide) 1 Mg/0.75 Ml (4 Mg/3 Ml) Pen.injctr 1 Mg SQ FRI Oxybutynin Chloride 5 Mg Tablet 5 Mg PO BID Ondansetron Odt (Ondansetron) 4 Mg Tab.rapdis 4 Mg SL Q4H PRN Metoprolol Tartrate 100 Mg Tablet 100 Mg PO BID Metformin HCl 1,000 Mg Tablet 1,000 Mg PO BID WITH MEALS Hydrocodone-Acetamin 10-325 mg (Hydrocodone/Acetaminophen) 10 Mg-325 Mg Tablet 0 .5-1 Each PO Q4- 6H PRN Cyclobenzaprine HCl 10 Mg Tablet 10 Mg PO TID Citalopram HBr (Citalopram Hydrobromide) 20 Mg Tablet 20 Mg PO HS Atorvastatin Calcium 20 Mg Tablet 20 Mg PO HS Allergies: Iodinated Contrast Media (Unverified Allergy, Severe, Itching, 07/25/22) Family history: None Social history: Tobacco Use?: No Smoking Status: Never a Smoker Smokeless Tobacco Frequency: Never a User Use of E-Cig and/or Vaping dev: No Substance use?: Yes Substance type: Marijuana (edibles) Alcohol Use?: Yes Alcohol type: Beer Alcohol Frequency: Rarely Pt feels they are or have been: No Vitals: 08/06/22 10:26 Temp 36.1 Pulse 95 Resp 20 B/P (MAP) 149/65 (93) Pulse Ox 95 O2 Delivery Room Air Labs: (none since 08/02) Physical exam: General Appearance: No apparent distress, Obese Respiratory: Lungs clear, No respiratory distress Cardiovascular: Regular rate & rhythm, No murmurs Gastrointestinal: Normal bowel sounds, soft Extremity: No edema, Other (left BKA, stump wrapped w/o any visible dr ainage/discharge) Neurologic/Psychiatric: Alert, Normal mood/affect Skin: Normal color, Warm/dry ASSESSMENT & PLAN: Chronic osteomyelitis s/p L BKA Chronic bilateral peripheral neuropathy - Admit to inpatient rehab to work with PT & OT on strength, mobility, and return to functional independent living - Pain regimen: PRN Tylenol (was on PRN IV morphine & PRN Dolph on floor) - On cyclobenzaprine & pregabalin - Prosthetics consulted T2DM - On sliding scale insulin HTN HLD - Continue home meds Obesity (BMI >35) - No acute mgmt needs VALE ALANIZ DO 08/07/22 0520: Supervisory-Addendum Brief Verification & Attestation Participated in pt care: history, MDM, physical Personally performed: exam, history, MDM, supervision of care Care discussed with: Medical Student Procedures: n/a Results interpretation: Verified all documentation Verification and Attestation of Medical Student E/M Service A medical student performed and documented this service in my presence. I reviewed and verified all information documented by the medical student and made modifications to such information, when appropriate. I personally performed the physical exam and medical decision making. Vale Alaniz Aug 07, 2022,05:19 LYLE SINHA Aug 06, 2022 11:15 VALE ALANIZ DO Aug 07, 2022 05:20
--- NOTE | 2022-08-06 12:19 | PM&R Post Admission Assessment ---
PM&R Date of Visit: Aug 06, 2022 Time of Visit: 12:00 History of Present Illness Chief complaint: Chronic osteomyelitis of the left foot, now s/p left below- knee amputation HPI: This is a 62yoWM clinic patient of Gladys Miranda in [place] who presents to the ARU for rehab following a LBKA. Currently his pain is controlled. Stump subsea engineer in place. at bedside. BM and voiding well. Reviewed all meds. HPI: 62 y/o M with history of T2DM (on insulin), chronic bilateral neuropathy, chronic osteomyelitis of L foot, tachycardia, hyperlipidemia, depression. Underwent left BKA on 08/01/22. Review of systems: Positive for L leg pain. Negative for fever, chills, headache, changes in vision/hearing, tingling/numbness, chest pain, shortness of breath, cough, nausea, vomiting, diarrhea, abdominal pain, urinary issues. Medical history: (see HPI) Surgical history: - L BKA - Had all toes on L foot amputated in 2016 - bilateral rotator cuff repair - ORIF R forearm (plate & screws in place) - Cholecystectomy Medications: Active Reported Tresiba Flextouch U-200 (Insulin Degludec) 200 Unit/Ml (3 Ml) Insuln.pen 100 Unit SQ HS Ibuprofen 800 Mg Tablet 800 Mg PO TID PRN Omeprazole Magnesium 20 Mg Capsule. 20 Mg PO DAILY Aspirin EC (Aspirin) 325 Mg Tablet.dr 325 Mg PO HS Centrum Silver Tablet (Multivit-Min/FA/Lycopene/Lut) 0.4 Mg-300 Mcg-250 Mcg Tablet 1 Each PO 1800 Fiasp 100 Unit/ml Flextouch (Insulin Aspart (Niacinamide)) 100 Unit/Ml (3 Ml) Insuln.pen Unit SQ PC USES PER SLIDING SCALE Pregabalin 150 Mg Capsule 150 Mg PO TID Ozempic (Semaglutide) 1 Mg/0.75 Ml (4 Mg/3 Ml) Pen.injctr 1 Mg SQ FRI Oxybutynin Chloride 5 Mg Tablet 5 Mg PO BID Ondansetron Odt (Ondansetron) 4 Mg Tab.rapdis 4 Mg SL Q4H PRN Metoprolol Tartrate 100 Mg Tablet 100 Mg PO BID Metformin HCl 1,000 Mg Tablet 1,000 Mg PO BID WITH MEALS Hydrocodone-Acetamin 10-325 mg (Hydrocodone/Acetaminophen) 10 Mg-325 Mg Tablet 0.5-1 Each PO Q4- 6H PRN Cyclobenzaprine HCl 10 Mg Tablet 10 Mg PO TID Citalopram HBr (Citalopram Hydrobromide) 20 Mg Tablet 20 Mg PO HS Atorvastatin Calcium 20 Mg Tablet 20 Mg PO HS Allergies: Iodinated Contrast Media (Unverified Allergy, Severe, Itching, 07/25/22) Family history: None Social history: Tobacco Use?: No Smoking Status: Never a Smoker Smokeless Tobacco Frequency: Never a User Use of E-Cig and/or Vaping dev: No Substance use?: Yes Substance type: Marijuana (edibles) Alcohol Use?: Yes Alcohol type: Beer Alcohol Frequency: Rarely Pt feels they are or have been: No Vitals: 08/06/22 10:26 Temp 36.1 Pulse 95 Resp 20 B/P (MAP) 149/65 (93) Pulse Ox 95 O2 Delivery Room Air Labs: (none since 08/02) Physical exam: General Appearance: No apparent distress, Obese Respiratory: Lungs clear, No respiratory distress Cardiovascular: Regular rate & rhythm, No murmurs Gastrointestinal: Normal bowel sounds, soft Extremity: No edema, Other (left BKA, stump wrapped w/o any visible drainage/discharge) Neurologic/Psychiatric: Alert, Normal mood/affect Skin: Normal color, Warm/dry ASSESSMENT & PLAN: Chronic osteomyelitis s/p L BKA Chronic bilateral peripheral neuropathy - Admit to inpatient rehab to work with PT & OT on strength, mobility, and return to functional independent living - Pain regimen: PRN Tylenol (was on PRN IV morphine & PRN Cougar on floor) - On cyclobenzaprine & pregabalin - Prosthetics consulted T2DM - On sliding scale insulin HTN HLD - Continue home meds Obesity (BMI >35) - No acute mgmt needs LYLE SINHA Past Bohkljd-Nudocq-Hdivsf Hx Past Med/Social Hx: Reviewed Nursing Past Med/Soc Hx, Reviewed and Corrections made Patient Social History Marrital Status: Employed/Student: retired Alcohol Use: Denies Use Smoking Status: Former Smoker Recent Hopitalizations: No Seasonal Allergies Seasonal Allergies: No Past Medical History Surgeries: Gallbladder, Orthopedic Currently Using CPAP: No Currently Using BIPAP: No Cardiac: High Cholesterol Musculoskeletal: Amputee, Chronic Back Pain Endocrine: Diabetes, Insulin dep Psychosocial: PTSD, Depression History of Blood Disorders: No Prior Level of Function Bed Mobility: 6 Transfers: 6 Gait: 6 Stairs: 6 Indoor Mobility (Ambulation): Independent Stairs: Independent Self Care: Independent Functional Cognition: Independent Current Level of Fuctioning Roll Left to Right: 6 Sit to Lyin Lying to Sitting/Side of Bed: 6 Sit to Stand: 4 Chair/Zpd-wn-Jiqdm Xfer: 4 Car Transfer: 4 Does the Patient Walk: Yes Walk 10 feet: 4 Walk 50 ft with 2 Turns: 88 Walk 150 ft: 88 Walking 10ft on uneven surface: 4 Gait Assistive Device: FWW Does the Pt Use a Wheelchair: Yes Wheel 50 ft with 2 turns: 4 Wheel 150 ft: 4 Type of Wheelchair: Manual #of Steps: 1 1 Step (curb): 4 4 Steps: 88 Walking Assistive Device: Walker 12 Steps: 88 Picking up an Object: 4 (CGA using a certified fire investigator) Eatin Oral Hygiene: 5 Shower/Bathe Self: 3 (min A with RLE and buttocks.) Upper Body Dressin Lower Body Dressin (min A) On/Off Footwear: 1 Toileting Hygiene: 3 (mod A) PM&R Allergy/Meds/Data Review Allergies Coded Allergies: Iodinated Contrast Media (Verified Allergy, Severe, Itching, 08/06/22) adhesive tape (Verified Allergy, Unknown, 08/06/22) Home Medications Scheduled Aspirin (Aspirin EC), 325 MG PO HS, (Reported) Atorvastatin Calcium (Atorvastatin Calcium), 20 MG PO HS, (Reported) Citalopram Hydrobromide (Citalopram HBr), 20 MG PO HS, (Reported) Cyclobenzaprine HCl (Cyclobenzaprine HCl), 10 MG PO TID, (Reported) Insulin Aspart (Niacinamide) (Fiasp 100 Unit/ml Flextouch), UNIT SQ PC, (Reported) Insulin Degludec (Tresiba Flextouch U-200), 100 UNIT SQ HS, (Reported) Metformin HCl (Metformin HCl), 1,000 MG PO BID WITH MEALS, (Reported) Metoprolol Tartrate (Metoprolol Tartrate), 100 MG PO BID, (Reported) Multivit-Min/FA/Lycopene/Lut (Centrum Silver Tablet), 1 EACH PO 1800, (Reported) Omeprazole Magnesium (Omeprazole Magnesium), 20 MG PO DAILY, (Reported) Oxybutynin Chloride (Oxybutynin Chloride), 5 MG PO BID, (Reported) Pregabalin (Pregabalin), 150 MG PO TID, (Reported) Semaglutide (Ozempic), 1 MG SQ FRI, (Reported) Scheduled PRN Hydrocodone/Acetaminophen (Hydrocodone-Acetamin 10-325 mg), 0.5-1 EACH PO Q4- 6H PRN for PAIN-MODERATE (5-7), (Reported) Ibuprofen (Ibuprofen), 800 MG PO TID PRN for PAIN-MILD (1-4), (Reported) Ondansetron (Ondansetron Odt), 4 MG SL Q4H PRN for NAUSEA/VOMITING, (Reported) Discontinued Medications Insulin Degludec (Tresiba Flextouch U-100), 100 UNIT SQ HS, (Reported) Discontinued Reason: Prescription changed Losartan Potassium (Losartan Potassium), 50 MG PO DAILY, (Reported) Discontinued Reason: No Longer Taking Current Medications Current Medications Reviewed Review of Systems Constitutional: see HPI, malaise, weakness EENTM: no symptoms reported Respiratory: no symptoms reported Cardiovascular: no symptoms reported Gastrointestinal: no symptoms reported Genitourinary: no symptoms reported Musculoskeletal: see HPI Skin: no symptoms reported Psychiatric/Neurological: No Symptoms Reported All Other Systems Reviewed Negative Unless Noted: Yes Physical Exam Physical Exam Vital Signs Vital Signs - First Documented 08/06/22 10:26 Temp 36.1 Pulse 95 Resp 20 B/P (MAP) 149/65 (93) Pulse Ox 95 O2 Delivery Room Air Capillary Refill : Height, Weight, BMI Height: '" Weight: lbs. oz. kg; 35.87 BMI Method: General Appearance: No Apparent Distress, WD/WN, Chronically ill, Obese Eyes: Bilateral Eye Normal Inspection, Bilateral Eye PERRL HEENT: PERRL/EOMI, Normal ENT Inspection, Pharynx Normal Neck: Full Range of Motion, Normal Inspection, Non Tender, Supple, Carotid Bruit Respiratory: Chest Non Tender, Lungs Clear, Normal Breath Sounds, No Accessory Muscle Use, No Respiratory Distress Cardiovascular: Regular Rate, Rhythm, No Edema, No Gallop, No JVD, No Murmur, Normal Peripheral Pulses Gastrointestinal: Normal Bowel Sounds, No Organomegaly, No Pulsatile Mass, Non Tender, Soft Back: Normal Inspection, No CVA Tenderness, No Vertebral Tenderness Extremity: Normal Capillary Refill, Normal Inspection, Normal Range of Motion, Non Tender, No Calf Tenderness, No Pedal Edema, Other (LBKA) Neurologic/Psychiatric: Alert, Oriented x3, No Motor/Sensory Deficits, Normal Mood/Affect Skin: Normal Color, Warm/Dry Lymphatic: No Adenopathy PM&R Medical Assessment & Plan REHAB/MEDICAL ASSESSMENT AND PLAN: REHAB IMPAIRMENT GROUP: LBKA ETIOLOGIC DIAGNOSIS: LBKA The comorbidities that impact the patients function and/or functional outcome by: DM OOC, HTN, Previous amputation of the toes REHAB PLAN: The patient is being admitted to our comprehensive inpatient rehabilitation facility and can tolerate the intensity of service consisting of at least: 180 minutes of therapy a day, 5 out of 7 days a week Rehab treatment will consist of: PT OT will focus on regaining function with left BKA in order to regain independence in order to return home to live independently with spouse The patient/family has a good understanding of our discharge process and will benefit from an interdisciplinary inpatient rehabilitation program. The patient has potential to make improvement and is in need of at least two of the following multidisciplinary therapies including but not limited to physical, occupational, speech, and prosthetics and orthotics. Additionally the patient will need services from respiratory, nutritional services, wound care, psychology, etc. (Customize this to each patient). Given the patients complex condition and risk of further medical complications, rehabilitation services cannot be safely or effectively provided at a lower level of care such as a long-term facility. BARRIERS TO DISCHARGE: LBKA ESTIMATED LOS: 10 days DISPOSITION: Home RELEVANT CHANGES SINCE PREADMISSION SCREENING: I have compared the patients medical and functional status at the time of the preadmission screening and there are: no changes PROGNOSIS: Good REHABILITATION GOALS: 1. PT OT will focus on regaining function with left BKA in order to regain independence in order to return home to live independently with spouse All the above goals were reviewed with the patient and he/she is in agreement. By signing this document, I acknowledge that I have personally performed a full physical examination on this patient within 24 hours of admission to this inpatient rehabilitation facility and have determined the patient to be able to tolerate the above course of treatment at an intensive level for a reasonable period of time. I will be completing a detailed individualized Plan of Care for this patient by day #4 of the patients stay based upon the Preadmission Screen, the Post-Admission Evaluation, and the therapy evaluations. Admission Dx/Comorbidities: (1) Status post below-knee amputation of left lower extremity Status: Acute ICD Codes: Z89.512 - Acquired absence of left leg below knee (2) T2DM (type 2 diabetes mellitus) Status: Chronic ICD Codes: E11.9 - Type 2 diabetes mellitus without complications (3) HLD (hyperlipidemia) Status: Chronic ICD Codes: E78.5 - Hyperlipidemia, unspecified (4) Obesity Status: Chronic ICD Codes: E66.9 - Obesity, unspecified Assessment/Plan Assessment and Plan Assess & Plan/Chief Complaint Assessment: LBKA DM HTN HLP Obesity Anemia post op acute blood loss type Plan: Monitor closely Fall risk DM management TYLER Rider DO Aug 06, 2022 12:19
[2022-08-06] MEDS ORDERED: NON-FORMULARY MEDICATION 1 EA EA (Semaglutide (Ozempic) 1 MG) SQ SCH (12:30)
[2022-08-06] MEDS ORDERED: ONDANSETRON 4 MG/2 ML (SDV) Z0FRAN IVP PRN (12:30)
[2022-08-06] MEDS ORDERED: ONDANSETRON 4 MG (ZOFRAN) ORAL DISSOLVE TAB SL PRN (12:30)
[2022-08-06] MEDS ORDERED: morphine INJ 4 MG/ML 1 ML (VIAL/SYRINGE) IVP PRN (12:30)
[2022-08-06] MEDS ORDERED: IBUPROFEN 800 MG (MOTRIN) TAB PO PRN (12:30)
[2022-08-06] MEDS ORDERED: RX-CYCLOBENZAPRINE 10 MG (FLEXERIL) TAB PPK#3 PO SCH (13:00)
[2022-08-06] MEDS: PREGABALIN 150 MG (LYRICA) CAPSULE PO SCH ×2 (13:40→21:00)
[2022-08-06] MEDS: inSUlin ASPART (NovoLOG) 1 UNIT/0.01 ML (CHARGE PER UNIT) SC SCH ×2 (15:32→21:00)
[2022-08-06] MEDS: ASPIRIN E.C. 81 MG (ECOTRIN) TAB PO SCH (17:04)
[2022-08-06] MEDS: MULTIVIT W/MINERALS TAB (THERAGRAN M) PO SCH (17:04)
[2022-08-06] MEDS: metFORMIN 500 MG (GLUCOPHAGE) TAB PO SCH (17:04)
[2022-08-06] MEDS ORDERED: NON-FORMULARY MEDICATION 1 EA EA (Metformin HCl 1,000 MG) PO SCH (18:00)
[2022-08-06] MEDS ORDERED: NON-FORMULARY MEDICATION 1 EA EA (Multivit-Min/FA/Lycopene/Lut (Centrum Silver Tablet) 1 E PO SCH (18:00)
[2022-08-06 19:59] VITALS: BP 125/72
[2022-08-06] MEDS: meTOprolol TARTRATE 50 MG (LOPRESSOR) TAB PO SCH (20:59)
[2022-08-06] MEDS: OXYBUTYNIN (DITROPAN) 5 MG TAB PO SCH (21:00)
[2022-08-06] MEDS ORDERED: NON-FORMULARY MEDICATION 1 EA EA (Metoprolol Tartrate 100 MG) PO SCH (21:00)
[2022-08-06] MEDS ORDERED: INSULIN DEGLUDEC 100 UNIT SQ SCH (21:00)
[2022-08-06] MEDS ORDERED: NON-FORMULARY MEDICATION 1 EA EA (Aspirin (Aspirin EC) 325 MG) PO SCH (21:00)
[2022-08-07 05:37] LABS: BASOPHILS # (AUTO) 0.1 10^3/uL (0.0-0.1); BASOPHILS % (AUTO) 1 % (0-10); EOSINOPHILS # (AUTO) 0.5 10^3/uL (0.0-0.3); EOSINOPHILS % (AUTO) 4 % (0-10); HEMATOCRIT 36 % (40-54); HEMOGLOBIN 12.1 g/dL (13.3-17.7); LYMPHOCYTES # (AUTO) 2.2 10^3/uL (1.0-4.0); LYMPHOCYTES % (AUTO) 18 % (12-44); MEAN CORPUSCULAR HEMOGLOBIN 31 pg (25-34); MEAN CORPUSCULAR HGB CONC 34 g/dL (32-36); MEAN CORPUSCULAR VOLUME 90 fL (80-99); MEAN PLATELET VOLUME 10.1 fL (9.0-12.2); MONOCYTES # (AUTO) 0.7 10^3/uL (0.0-1.0); MONOCYTES % (AUTO) 6 % (0-12); NEUTROPHILS # (AUTO) 8.6 10^3/uL (1.8-7.8); NEUTROPHILS % (AUTO) 71 % (42-75); PLATELET COUNT 362 10^3/uL (130-400); WHITE BLOOD COUNT 12.1 10^3/uL (4.3-11.0)
[2022-08-07 05:39] LABS: ALBUMIN 3.3 GM/DL (3.2-4.5)
[2022-08-07 05:40] LABS: POTASSIUM 4.5 MMOL/L (3.6-5.0)
[2022-08-07 05:41] LABS: CALCIUM 8.9 MG/DL (8.5-10.1)
--- NOTE | 2022-08-07 05:41 | PM&R Progress Note ---
Subjective HPI/CC On Admission Date Seen by Provider: Aug 07, 2022 Time Seen by Provider: 08:30 Subjective/Events-last exam 08/07/2022: Patient doing well Participation in therapy is good Hypoglycemia noted this am Pain controlled Review of Systems General: Fatigue, Malaise Musculoskeletal: leg pain Objective Exam Vital Signs Vital Signs Date Time Temp Pulse Resp B/P (MAP) Pulse Ox O2 Delivery O2 Flow Rate FiO2 08/07/22 21:30 95 Room Air 08/07/22 20:50 36.5 91 20 115/69 (84) Capillary Refill : General Appearance: No Apparent Distress, WD/WN, Chronically ill, Obese HEENT: PERRL/EOMI, Normal ENT Inspection, Pharynx Normal Neck: Full Range of Motion, Normal Inspection, Non Tender, Supple, Carotid Bruit Respiratory: Chest Non Tender, Lungs Clear, Normal Breath Sounds, No Accessory Muscle Use, No Respiratory Distress Cardiovascular: Regular Rate, Rhythm, No Edema, No Gallop, No JVD, No Murmur, Normal Peripheral Pulses Gastrointestinal: Normal Bowel Sounds, No Organomegaly, No Pulsatile Mass, Non Tender, Soft Back: Normal Inspection, No CVA Tenderness, No Vertebral Tenderness Extremity: Normal Capillary Refill, Normal Inspection, Normal Range of Motion, Non Tender, No Calf Tenderness, No Pedal Edema, Other (LBKA) Neurologic/Psychiatric: Alert, Oriented x3, No Motor/Sensory Deficits, Normal Mood/Affect Skin: Normal Color, Warm/Dry Lymphatic: No Adenopathy Results/Procedures Lab Laboratory Tests 08/07/22 05:03 08/07/22 05:05 Patient resulted labs reviewed. FIM Transfers Therapy Code Descriptions/Definitions Functional [place] Measure: 0=Not Assessed/NA 4=Minimal Assistance 1=Total Assistance 5=Supervision or Setup 2=Maximal Assistance 6=Modified [place] 3=Moderate Assistance 7=Complete IndependenceSCALE: Activities may be completed with or without assistive devices. 5-Yarrrfabkb-wgmgccc completes the activity by him/herself with no assistance from a helper. 5-Set-up or Clean-up Assistance-helper sets up or cleans up; patient completes activity. [place] assists only prior to or following the activity. 4-Supervision or Touching Assistance-helper provides verbal cues and/or touching/steadying and/or contact guard assistance as patient completes activity. Assistance may be provided throughout the activity or intermittently. 3-Partial/Moderate Assistance-helper does LESS THAN HALF the effort. [place] lifts, holds or supports trunk or limbs, but provides less than half the effort. 2-Substantial/Maximal Assistance-helper does MORE THAN HALF the effort. [place] lifts or holds trunk or limbs and provides more than half the effort. 5-Eloexxjqk-apdalr does ALL the effort. Patient does none of the effort to complete the activity. Or, the assistance of 2 or more helpers is required for the patient to complete the activity. If activity was not attempted, code reason: 7-Patient Refused. 9-Not Applicable-not attempted and the patient did not perform the activity before the current illness, exacerbation or injury. 10-Not Attempted due to Environmental Limitations-(lack of equipment, weather restraints, etc.). 88-Not Attempted due to Medical Conditions or Safety Concerns. Roll Left to Right (QC): 6 Sit to Lying (QC): 6 Sit to Stand (QC): 4 Chair/Vdq-gi-Jbvgq Xfer(QC): 4 Car Transfer (QC): 4 Gait Training Does the Patient Walk?: Yes Walk 10 feet (QC): 4 Walk 50 ft with 2 Turns(QC): 88 Walk 150 ft (QC): 88 Walking 10ft/uneven surface-QC: 4 Gait Assistive Device: FWW Wheelchair Training Does the Pt Use a Wheelchair?: Yes Wheel 50 ft with 2 turns (QC): 4 Wheel 150 ft (QC): 4 Type of Wheelchair: Manual Stair Training #of Steps: 1 1 Step (curb) (QC): 4 4 Steps (QC): 88 12 Steps (QC): 88 Balance Picking up an Object (QC): 4 (CGA using a twister in) ADL-Treatment Eating (QC): 6 Oral Hygiene (QC): 5 Shower/Bathe Self (QC): 3 (min A with RLE and buttocks.) Upper Body Dressing (QC): 5 Lower Body Dressing (QC): 3 (min A) On/Off Footwear (QC): 1 Toileting Hygiene (QC): 3 (mod A) Assessment/Plan Assessment and Plan Assess & Plan/Chief Complaint Assessment: LBKA DM HTN HLP Obesity Anemia post op acute blood loss type Plan: Monitor closely Fall risk DM management Lovenox 08/07/2022: Monitor closely Pain control Minimize insulin (1) Status post below-knee amputation of left lower extremity Status: Acute (2) T2DM (type 2 diabetes mellitus) Status: Chronic (3) HLD (hyperlipidemia) Status: Chronic (4) Obesity Status: Chronic TYLER CONTRERAS DO Aug 07, 2022 05:41
[2022-08-07 05:42] LABS: TOTAL PROTEIN 6.9 GM/DL (6.4-8.2)
--- NOTE | 2022-08-07 05:42 | Individualized Plan of Care ---
Individualized Plan of Care Rehab Nursing IPOC Order Admission Date Aug 06, 2022 at 09:50 Current Orders Orders Admission Order(Inpt,Obs,Sdc) (08/05/22 20:28) Vital Signs: Per Unit Policy ( ,,00 (08/05/22 20:28) Giovani Casas (08/05/22 20:28) Sequential Compression Device (08/05/22 20:28) Sole Tier-Inpt Rehab Con (08/05/22 20:28) Rehab Nursing Orders-Ipoc (08/05/22 20:28) Physical Therapy Rehab Orders (08/05/22 20:28) Occupational Therapy Rehab Ord (08/05/22 20:28) Speech Therapy Rehab Orders (08/05/22 20:28) Cbc With Automated Diff (08/07/22 06:00) Comprehensive Metabolic Panel (08/07/22 06:00) Precautions (Aru) (08/05/22 20:28) Weekly Weight WEEK (08/05/22 20:28) Rehab-Intensity Of Therapy (08/05/22 20:28) Initiate Admission Nursing Pro .admission (08/05/22 20:28) Alprazolam Tablet (Xanax Tablet) (08/05/22 20:30) Calcium Carbonate Chew Tablet (Antacid C (08/05/22 20:30) Diphenhydramine Tablet (Benadryl Tablet) (08/05/22 20:30) Docusate Sodium Capsule (Colace Capsule) (08/05/22 21:00) Docusate Sodium Capsule (Colace Capsule) (08/05/22 20:30) Bisacodyl Suppository (Dulcolax Supposit (08/05/22 20:30) Lactulose Oral Solution (Enulose Oral So (08/05/22 20:30) Na Phos/Na Biphos Enema (Fleet Enema Osei (08/05/22 20:30) Guaifenesin/Codeine Syrup (Robitussin Ac (08/05/22 20:30) Loperamide Tablet (Imodium Tablet) (08/05/22 20:30) Melatonin Tablet (Melatonin Tablet) (08/05/22 20:30) Polyethylene Glycol Powder Pkt (Miralax (08/05/22 21:00) Ondansetron Oral Dissolve Tab (Zofran (08/05/22 20:30) Senna S Tablet (Senokot S Tablet) (08/05/22 21:00) Acetaminophen Tablet/Caplet (Tylenol T (08/05/22 20:30) Initiate Admission Nursing Pro .admission (08/05/22 20:28) General/Regular (08/06/22 Breakfast) Admission Arrival Bed Request (08/06/22 10:09) Patient Visit (08/06/22 ) Speech Sound Lang Comp (08/06/22 ) Treat. Speech/Lang/Voice (08/06/22 ) Atorvastatin Tablet (Lipitor Tablet) (08/06/22 21:00) Citalopram Tablet (Celexa Tablet) (08/06/22 21:00) Rx-Cyclobenzaprine Tablet (Rx-Flexeril T (08/06/22 13:00) Hydrocodone/Apap 10/325 Tablet (Lortab 1 (08/06/22 12:30) Ibuprofen Tablet (Motrin Tablet) (08/06/22 12:30) Ondansetron Oral Dissolve Tab (Zofran (08/06/22 12:30) Oxybutynin Tablet (Ditropan Tablet) (08/06/22 21:00) Pregabalin Capsule (Lyrica Capsule) (08/06/22 13:00) (Nf) Aspirin (Aspirin Ec) (08/06/22 21:00) (Nf) Insulin Degludec (Tresiba Flextouch (08/06/22 21:00) (Nf) Metformin Hcl (08/06/22 18:00) (Nf) Metoprolol Tartrate (08/06/22 21:00) (Nf) Multivit-Min/Fa/Lycopene/Lut (Centr (08/06/22 18:00) (Nf) Omeprazole Magnesium (08/07/22 09:00) (Nf) Semaglutide (Ozempic) (08/06/22 12:30) Accucheck Achs ACHS (08/06/22 12:18) Dressing Order (Intervention) BID PRN (08/06/22 12:18) Incentive Spirometry (Nursing) Q2H (08/06/22 12:18) Cho 60g/M 1snack (16-2000 Teddy) (08/06/22 Lunch) Insulin Aspart (Novolog) (Novolog (Charg (08/06/22 16:00) Ondansetron Injection (Zofran Injectio (08/06/22 12:30) Morphine Injection (Morphine Injection (08/06/22 12:30) Incentive Spirometry Initial (08/06/22 12:18) Incentive Spirometry (Nursing) Q2H (08/06/22 12:18) Therapeutic Multivitamin Tab (Vitamins, (08/06/22 18:00) Pantoprazole Tablet (Protonix Tablet) (08/07/22 09:00) Metoprolol Tartrate (Ir) Tab (Lopressor (08/06/22 21:00) Metformin Tablet (Glucophage Tablet) (08/06/22 18:00) Insulin Determir (Per Unit) (Levemir (Pe (08/06/22 21:00) Enoxaparin Injection (Lovenox Injection) (08/07/22 09:00) Aspirin Enteric Coated Tablet (Ecotrin T (08/06/22 18:00) Cyclobenzaprine Tablet (Flexeril Tablet) (08/06/22 12:45) Patient Visit (08/06/22 ) Pt Evdiego Moderate Complexity (08/06/22 ) Functional Activities, Ea 15 (08/06/22 ) Insulin Determir (Per Unit) (Levemir (Pe (08/07/22 21:00) Patient Visit (08/07/22 ) Exercise Therap, Ea 15 Min (08/07/22 ) Functional Activities, Ea 15 (08/07/22 ) Wheelchair Mgmt/Propulsn 15min (08/07/22 ) Gait Training, Ea 15 Min (08/07/22 ) Rehab Nursing Orders: Ongoing Assess. of Cognitive Status, Ongoing Assess. of Function Status, Bladder Management, Bladder Scan, Bladder Training, Bowel Management, Bowel Training, Disease Management & Educaiton, DVT Prophylaxis, Fall Prevention, Fluid/Electrolyte/Nutrition Mgmt, Infection Prevention, Medication Management & Education, Management of Risks & Complications, Management of Skin Intergrity, Nutrition Management, Pain Management, Patient/Family Support, Safety Management Intensity of Therapy to be met Patient to be seen: Min.3h per day/5 of 7d PT IPOC Problem List: Activity Tolerance, Functional Strength, Safety, Balance, Gait, Transfer, Bed Mobility, ROM Treatment Plan: Continue Plan of Care Bed Mobility, Education, Functional Activity Han, Functional Strength, Group Therapy, Gait, Safety, Therapeutic Exercise, Transfers Treatment Duration: Aug 20, 2022 Frequency: At least 5 of 7 days/Wk (IRF) Estimated Hrs Per Day: 1.5 hours per day OT IPOC Problems: Decreased Activ Tolerance, Decreased UE Strength, Impaired Funct Balance, Impaired I ADL's, Impaired Self-Care Skills OT Treatment, Training and Edu: Yes Plan of Care: ADL Retraining, Functional Mobility, Group Exercise/Act as Ind, UE Funct Exercise/Act Treatment Duration: Aug 30, 2022 Frequency: At least 5 of 7 days/Wk (IRF) Estimated Hrs Per Day: 1.[address] IPOC Speech Therapy Treatment Plan: Discontinue ST Treatment Duration: Aug 06, 2022 Frequency: 1 time per week Estimated Hrs Per Day: .25 hour per day Sole Tier/Case Mgmt Sole Tier/Case Managemen: Discharge Planning Dietitian/Human Resources Advisor Dietitian/Human Resources Advisor to monitor nutritional status and make changes and/or recommendations as needed and work with speech pathology on dietary upgrades as the occur. Physician IPOC Medical Issues being managed closely and that require the 24 hour availability of a physician: Recent left BKA and now variable sugars will require close monitoring of status to prevent decompensation while strengthening in order to return home Medical Issues: Bowel/Bladder Function, DVT Prophylaxis, Falls Precautions, Fluid/Electrolyte/Nutrition Balance, Infection Protection, Pain Management, Wound Care Brief Synthesis of Preadmission Screen, Post-Admission Evaluation, and Therapy Evaluations: PT OT will focus on regaining independence and ambulation with use of AD and fall risk prevention in order to return home Medical Prognosis: Good Anticipated Length of Stay: 7 days TYLER CONTRERAS DO Aug 07, 2022 05:42
[2022-08-07 05:44] LABS: BILIRUBIN,TOTAL 0.3 MG/DL (0.1-1.0)
[2022-08-07 05:46] LABS: CREATININE SERUM 1.18 MG/DL (0.60-1.30)
[2022-08-07] MEDS: inSUlin ASPART (NovoLOG) 1 UNIT/0.01 ML (CHARGE PER UNIT) SC SCH ×4 (06:14→21:35)
[2022-08-07 07:12] VITALS: BP 145/81
[2022-08-07] MEDS: PANTOPRAZOLE 20 MG TABLET (PROTONIX) PO SCH (07:56)
[2022-08-07] MEDS: polyethylene glycoL POWDER 17 GM (MIRALAX) PACK PO SCH ×2 (07:57→21:35)
[2022-08-07] MEDS: DOCUSATE SODIUM 100 MG (COLACE) CAP PO SCH ×2 (07:57→21:35)
[2022-08-07] MEDS: metFORMIN 500 MG (GLUCOPHAGE) TAB PO SCH ×2 (07:57→17:44)
[2022-08-07] MEDS: PREGABALIN 150 MG (LYRICA) CAPSULE PO SCH ×3 (07:57→20:50)
[2022-08-07] MEDS: OXYBUTYNIN (DITROPAN) 5 MG TAB PO SCH ×2 (07:57→21:34)
[2022-08-07] MEDS: SENNA W/DOCUSATE (SENOKOT S) TABLET PO SCH ×2 (07:58→21:35)
[2022-08-07] MEDS: meTOprolol TARTRATE 50 MG (LOPRESSOR) TAB PO SCH ×2 (07:58→21:34)
[2022-08-07] MEDS: ENOXAPARIN 40 MG/0.4 ML (LOVENOX) SYR SC SCH (07:58)
--- NOTE | 2022-08-07 08:58 | Physical Therapy Daily Note ---
PT Daily Note-Current Subjective Pt. in bed, at side. Pt. agrees to Rx, denies pain. Pain Location: No Pain Reported Section J - Health Conditions 1. Rarely or not at all 2. Occasionally 3. Frequently 4. Almost constantly 8. 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 6-Btpmvbggkl-awdcsqy completes the activity by him/herself with no assistance from a helper. 5-Set-up or Clean-up Assistance-helper sets up or cleans up; patient completes activity. [place] assists only prior to or following the activity. 4-Supervision or Touching Assistance-helper provides verbal cues and/or touching/steadying and/or contact guard assistance as patient completes activity. Assistance may be provided throughout the activity or intermittently. 3-Partial/Moderate Assistance-helper does LESS THAN HALF the effort. [place] lifts, holds or supports trunk or limbs, but provides less than half the effort. 2-Substantial/Maximal Assistance-helper does MORE THAN HALF the effort. [place] lifts or holds trunk or limbs and provides more than half the effort. 4-Mbxstflef-nehamj does ALL the effort. Patient does none of the effort to complete the activity. Or, the assistance of 2 or more helpers is required for the patient to complete the activity. If activity was not attempted, code reason: 7-Patient Refused. 9-Not Applicable-not attempted and the patient did not perform the activity before the current illness, exacerbation or injury. 10-Not Attempted due to Environmental Limitations-(lack of equipment, weather restraints, etc.). 88-Not Attempted due to Medical Conditions or Safety Concerns. Roll Left & Right (QC): 6 Sit to Lying (QC): 6 Lying to Sitting/Side of Bed(Q: 6 Sit to Stand (QC): 4 Chair/Ikv-sb-Vylgq Xfer(QC): 4 Toilet Transfer (QC): 4 Gait Training Does the Patient Walk?: Yes Walk 10 feet (QC): 4 Gait Persons Needed: 1 Gait Assistive Device: FWW 20ft x 3, 10 ft x 1 FWW w/c to follow, slow, needed instruction in safe position in FWW as pt steps very far in and is vulnerable to retropulsion. This improved with instruction Wheelchair Training Does the Pt Use a Wheelchair?: Yes Wheel 50 ft with 2 turns (QC): 6 Wheel 150 ft (QC): 6 Type of Wheelchair: Manual Exercises Supine Ex: Ankle pumps, Quad Set, Rolling, Glut sets, Heel Slides, Knee to chest, Short Arc Quads, Scooting, Straight leg raise, Hip abd/add Supine Reps: 20 Seated Therapy Exercises: Sit to stand, Long arc quads Seated Reps: 12 Treatments bed mob, amputee therex and stretching, TRFs, gait, w/c mob as above, co Rx with OT for gait for short dist and toilet TRFs Assessment Current Status: Good Progress gives full effort, supportive, shows progress and potential PT Short Term Goals Short Term Goals Time Frame: Aug 13, 2022 Sit to stand: 4 (SBA) Chair/oij-nx-bwigi transfer: 4 (SBA) Walk 10 feet: 4 (SBA) PT Penitentiary Goals Penitentiary Goals PT External Relations Director Goals Time Frame: Aug 20, 2022 Roll Left & Right (QC): 6 Sit to Lying (QC): 6 Lying-Sitting on Side/Bed(QC): 6 Sit to Stand (QC): 6 Chair/Bpi-ad-Aiika Xfer(QC): 6 Toilet Transfer (QC): 6 Car Transfer (QC): 6 Does the Patient Walk: Yes Walk 10 feet (QC): 6 Walk 50ft with 2 Turns (QC): 6 Walk 150 ft (QC): 88 Walking 10ft on Uneven Surface: 6 1 Step (curb) (QC): 4 (SBA) 4 Steps (QC): 88 12 Steps (QC): 88 Picking up an Object (QC): 4 (SBA using a field placement director) Wheel 50 feet with 2 turns (QC: 6 Wheel 150 feet: 6 PT Plan Treatment/Plan Treatment Plan: Continue Plan of Care Treatment Plan: Bed Mobility, Education, Functional Activity Han, Functional Strength, Group Therapy, Gait, Safety, Therapeutic Exercise, Transfers Treatment Duration: Aug 20, 2022 Frequency: At least 5 of 7 days/Wk (IRF) Estimated Hrs Per Day: 1.5 hours per day Patient and/or Family Agrees t: Yes Safety Risks/Education Patient Education: Gait Training, Transfer Techniques, Correct Positioning, W/C Management, Disease Process, Safety Issues Teaching Recipient: Patient, Family Teaching Methods: Demonstration, Discussion Response to Teaching: Verbalize Understanding, Return Demonstration, Reinforcement Needed Time Time In: 800 Time Out: 900 DATE: Aug 07, 2022 Total Billed Treatment Time: 60 Total Billed Treatment 1,WC10m,EX20m,GT15m,FA15m co Rx OT 845 to 900 [place] 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
[2022-08-07] MEDS ORDERED: OMEPRAZOLE MAGNESIUM 20 MG PO SCH (09:00)
--- NOTE | 2022-08-07 09:41 | Occupational Ther Daily Note ---
OT Current Status-Daily Note Subjective Pt agreeable to short OT/PT cotreat to focus on higher level balance tasks, then OT tx with focus on ADLs. ADL-Treatment Therapy Code Descriptions/Definitions Functional [place] Measure: 0=Not Assessed/NA 4=Minimal Assistance 1=Total Assistance 5=Supervision or Setup 2=Maximal Assistance 6=Modified [place] 3=Moderate Assistance 7=Complete IndependenceSCALE: Activities may be completed with or without assistive devices. 5-Yvztafreee-qtjisdu completes the activity by him/herself with no assistance from a helper. 5-Set-up or Clean-up Assistance-helper sets up or cleans up; patient completes activity. [place] assists only prior to or following the activity. 4-Supervision or Touching Assistance-helper provides verbal cues and/or touching/steadying and/or contact guard assistance as patient completes activity. Assistance may be provided throughout the activity or intermittently. 3-Partial/Moderate Assistance-helper does LESS THAN HALF the effort. [place] lifts, holds or supports trunk or limbs, but provides less than half the effort. 2-Substantial/Maximal Assistance-helper does MORE THAN HALF the effort. [place] lifts or holds trunk or limbs and provides more than half the effort. 7-Sfdzepibv-mwlqlv does ALL the effort. Patient does none of the effort to complete the activity. Or, the assistance of 2 or more helpers is required for the patient to complete the activity. If activity was not attempted, code reason: 7-Patient Refused. 9-Not Applicable-not attempted and the patient did not perform the activity before the current illness, exacerbation or injury. 10-Not Attempted due to Environmental Limitations-(lack of equipment, weather restraints, etc.). 88-Not Attempted due to Medical Conditions or Safety Concerns. 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 OT focused on UE placement, ADLs, and cues for sequencing and safety. PT focused on LE placement, gross overall movement, transfers/mobility, and dynamic standing balance. Pt used FWW to perform functional mobility in hallways, w/c follow. Education provided on body placement with "hopping". Pt requests to use bathroom, propelled w/c to bathroom, then transferred to toilet. End of cotreat. [id number]: Pt completed toileting, used FWW to transfer to UT, CGA. Pt doffed clothes using AE as needed with min VCs. OT covered pt's IV site and L stump. Pt able to take shower, SBA. Pt donned clothes using AE, min VCs. Pt used FWW to transfer to EOB, CGA. Post tx, pt at EOB, call light in reach and all needs met. Education OT Patient Education: Correct positioning, Energy conservation, Modified ADL techniques, Progress toward Goal/Update tx plan, Purpose of tx/functional activities, Rehab process Teaching Recipient: Patient Teaching Methods: Discussion Response to Teaching: Verbalize Understanding OT Short Term Goals Short Term Goals Time Frame: Aug 16, 2022 Toileting hygiene: 4 Shower/bathe self: 4 Lower body dressin Putting on/taking off footwear: 5 OT Intermediate Goals Intermediate Goals Time Frame: Aug 30, 2022 Acute change in mental status: 0 Inattention: 0 Disorganized thinkin Altered level of consciousness: 0 Eating (QC): 6 Oral Hygiene (QC): 6 Toileting Hygiene (QC): 6 Shower/Bathe Self (QC): 5 Upper Body Dressing (QC): 6 Lower Body Dressing (QC): 6 On/Off Footwear (QC): 6 Additional Goals: 1-Demonstrate ADL Tasks, 2-Verbalize Understanding, 3- ImproveStrength/Han 1=Demonstrate adherence to instructed precautions during ADL tasks. 2=Patient will verbalize/demonstrate understanding of assistive devices/modifications for ADL. 3=Patient will improve strength/tolerance for activity to enable patient to perform ADL's. OT Education/Plan Problem List/Assessment Assessment: Decreased Activ Tolerance, Decreased UE Strength, Impaired Funct Balance, Impaired I ADL's, Impaired Self-Care Skills Discharge Recommendations Plan/Recommendations: Continue POC Treatment Plan/Plan of Care Patient would benefit from OT for education, treatment and training to promote independence in ADL's, mobility, safety and/or upper extremity function for ADL's. Plan of Care: ADL Retraining, Functional Mobility, Group Exercise/Act as Ind, UE Funct Exercise/Act Treatment Duration: Aug 30, 2022 Frequency: At least 5 of 7 days/Wk (IRF) Estimated Hrs Per Day: 1.5 hours per day Agreement: Yes Rehab Potential: Fair Time Start Time: 08:45 Stop Time: 09:45 DATE: Aug 07, 2022 Total Time Billed (hr/min): 60 Billed Treatment Time cotreat x15', OT tx x45' 1, FA (10'), ADL 3 (50') KARAN GONSALES OT Aug 07, 2022 09:41
--- NOTE | 2022-08-07 11:30 | Occupational Ther Daily Note ---
OT Current Status-Daily Note Subjective Pt in bed, agreeable to OT Tx. ADL-Treatment Therapy Code Descriptions/Definitions Functional [place] Measure: 0=Not Assessed/NA 4=Minimal Assistance 1=Total Assistance 5=Supervision or Setup 2=Maximal Assistance 6=Modified [place] 3=Moderate Assistance 7=Complete IndependenceSCALE: Activities may be completed with or without assistive devices. 7-Khaknqmsfr-khbohyh completes the activity by him/herself with no assistance from a helper. 5-Set-up or Clean-up Assistance-helper sets up or cleans up; patient completes activity. [place] assists only prior to or following the activity. 4-Supervision or Touching Assistance-helper provides verbal cues and/or touching/steadying and/or contact guard assistance as patient completes activity. Assistance may be provided throughout the activity or intermittently. 3-Partial/Moderate Assistance-helper does LESS THAN HALF the effort. [place] lifts, holds or supports trunk or limbs, but provides less than half the effort. 2-Substantial/Maximal Assistance-helper does MORE THAN HALF the effort. [place] lifts or holds trunk or limbs and provides more than half the effort. 8-Ldgbuzvic-gdeywj does ALL the effort. Patient does none of the effort to complete the activity. Or, the assistance of 2 or more helpers is required for the patient to complete the activity. If activity was not attempted, code reason: 7-Patient Refused. 9-Not Applicable-not attempted and the patient did not perform the activity befo re the current illness, exacerbation or injury. 10-Not Attempted due to Environmental Limitations-(lack of equipment, weather re straints, etc.). 88-Not Attempted due to Medical Conditions or Safety Concerns. Other Treatment Pt transferred supine to sit EOB, independently. SPT from EOB to w/c, SBA. Pt propelled w/c to therapy gym independently. OT tx focused on increasing BUE strength and activity tolerance. Pt completed UE reaching task, 2lb wrist weights BUES. Pt completed nut/bolt block, placing/removing nuts/bolts x15. Pt propelled w/c back to his room. Post tx, pt up in w/c, call light in reach and all needs met. Education OT Patient Education: Correct positioning, Energy conservation, Modified ADL techniques, Progress toward Goal/Update tx plan, Purpose of tx/functional activities, Rehab process Teaching Recipient: Patient Teaching Methods: Discussion Response to Teaching: Verbalize Understanding OT Short Term Goals Short Term Goals Time Frame: Aug 16, 2022 Toileting hygiene: 4 Shower/bathe self: 4 Lower body dressin Putting on/taking off footwear: 5 OT Senior Care Goals Senior Care Goals Time Frame: Aug 30, 2022 Acute change in mental status: 0 Inattention: 0 Disorganized thinkin Altered level of consciousness: 0 Eating (QC): 6 Oral Hygiene (QC): 6 Toileting Hygiene (QC): 6 Shower/Bathe Self (QC): 5 Upper Body Dressing (QC): 6 Lower Body Dressing (QC): 6 On/Off Footwear (QC): 6 Additional Goals: 1-Demonstrate ADL Tasks, 2-Verbalize Understanding, 3- ImproveStrength/Han 1=Demonstrate adherence to instructed precautions during ADL tasks. 2=Patient will verbalize/demonstrate understanding of assistive devices/modifications for ADL. 3=Patient will improve strength/tolerance for activity to enable patient to perform ADL's. OT Education/Plan Problem List/Assessment Assessment: Decreased Activ Tolerance, Impaired Funct Balance, Impaired I ADL's, Impaired Self-Care Skills Discharge Recommendations Plan/Recommendations: Continue POC Treatment Plan/Plan of Care Patient would benefit from OT for education, treatment and training to promote independence in ADL's, mobility, safety and/or upper extremity function for ADL's. Plan of Care: ADL Retraining, Functional Mobility, Group Exercise/Act as Ind, UE Funct Exercise/Act Treatment Duration: Aug 30, 2022 Frequency: At least 5 of 7 days/Wk (IRF) Estimated Hrs Per Day: 1.5 hours per day Agreement: Yes Rehab Potential: Fair Time Start Time: 11:00 Stop Time: 11:30 DATE: Aug 07, 2022 Total Time Billed (hr/min): 30 Billed Treatment Time 1, FA 2 KARAN GONSALES OT Aug 07, 2022 11:30
--- NOTE | 2022-08-07 12:10 | Physical Therapy Daily Note ---
PT Daily Note-Current Subjective Pt. agrees to Rx, up in his w/c ready to go. c/o pain in residual limb at 9/10 Pain Numeric Pain Scale: 9 Location: Left Location Body Site: Calf (residual limb incision etc) Pain Description: Throbbing Section J - Health Conditions 1. Rarely or not at all 2. Occasionally 3. Frequently 4. Almost constantly 8. Unable to answer Pain Effect on Sleep: 3 Pain Interference with Therapy: 3 Pain Interference w/Day-to-Day: 3 Mental Status Patient Orientation: Normal For Age Transfers SCALE: Activities may be completed with or without assistive devices. 6-Knpxvhdkph-fungvpx completes the activity by him/herself with no assistance from a helper. 5-Set-up or Clean-up Assistance-helper sets up or cleans up; patient completes activity. [place] assists only prior to or following the activity. 4-Supervision or Touching Assistance-helper provides verbal cues and/or touching/steadying and/or contact guard assistance as patient completes activity. Assistance may be provided throughout the activity or intermittently. 3-Partial/Moderate Assistance-helper does LESS THAN HALF the effort. [place] lifts, holds or supports trunk or limbs, but provides less than half the effort. 2-Substantial/Maximal Assistance-helper does MORE THAN HALF the effort. [place] lifts or holds trunk or limbs and provides more than half the effort. 7-Epciffyce-qqsdad does ALL the effort. Patient does none of the effort to complete the activity. Or, the assistance of 2 or more helpers is required for the patient to complete the activity. If activity was not attempted, code reason: 7-Patient Refused. 9-Not Applicable-not attempted and the patient did not perform the activity before the current illness, exacerbation or injury. 10-Not Attempted due to Environmental Limitations-(lack of equipment, weather restraints, etc.). 88-Not Attempted due to Medical Conditions or Safety Concerns. Sit to Stand (QC): 6 Chair/Cid-ao-Tbhuz Xfer(QC): 4 Gait Training Does the Patient Walk?: Yes Walk 10 feet (QC): 4 Gait Persons Needed: 1 Gait Assistive Device: FWW pt. ambulated 15 ft x 2 FWW CGA some instruction for turns Wheelchair Training Does the Pt Use a Wheelchair?: Yes Type of Wheelchair: Manual indep for all w/c mob during Rx Exercises NuStep Minutes: 10 NuStep Workload: 1 Treatments w/c mob, TRFs, therex Assessment Current Status: Good Progress PT Short Term Goals Short Term Goals Time Frame: Aug 13, 2022 Sit to stand: 4 (SBA) Chair/obq-kt-rbtfu transfer: 4 (SBA) Walk 10 feet: 4 (SBA) PT Senior Living Goals Senior Living Goals PT Senior Living Goals Time Frame: Aug 20, 2022 Roll Left & Right (QC): 6 Sit to Lying (QC): 6 Lying-Sitting on Side/Bed(QC): 6 Sit to Stand (QC): 6 Chair/Ocl-ro-Zzdco Xfer(QC): 6 Toilet Transfer (QC): 6 Car Transfer (QC): 6 Does the Patient Walk: Yes Walk 10 feet (QC): 6 Walk 50ft with 2 Turns (QC): 6 Walk 150 ft (QC): 88 Walking 10ft on Uneven Surface: 6 1 Step (curb) (QC): 4 (SBA) 4 Steps (QC): 88 12 Steps (QC): 88 Picking up an Object (QC): 4 (SBA using a melter clerk) Wheel 50 feet with 2 turns (QC: 6 Wheel 150 feet: 6 PT Plan Treatment/Plan Treatment Plan: Continue Plan of Care Treatment Plan: Bed Mobility, Education, Functional Activity Han, Functional Strength, Group Therapy, Gait, Safety, Therapeutic Exercise, Transfers Treatment Duration: Aug 20, 2022 Frequency: At least 5 of 7 days/Wk (IRF) Estimated Hrs Per Day: 1.5 hours per day Patient and/or Family Agrees t: Yes Safety Risks/Education Patient Education: Gait Training, Transfer Techniques, Correct Positioning, Safety Issues Teaching Recipient: Patient Teaching Methods: Demonstration, Discussion Response to Teaching: Verbalize Understanding, Return Demonstration, Reinforcement Needed Time Time In: 1135 Time Out: 1205 DATE: Aug 07, 2022 Total Billed Treatment Time: 30 Total Billed Treatment 1,EX10m,FA20m [place] MOTIVATIONAL SPEAKER Aug 07, 2022 12:10
[2022-08-07] MEDS: ASPIRIN E.C. 81 MG (ECOTRIN) TAB PO SCH (17:43)
[2022-08-07] MEDS: MULTIVIT W/MINERALS TAB (THERAGRAN M) PO SCH (17:43)
[2022-08-07 20:50] VITALS: BP 115/69
[2022-08-08] MEDS: inSUlin ASPART (NovoLOG) 1 UNIT/0.01 ML (CHARGE PER UNIT) SC SCH ×4 (06:14→20:50)
[2022-08-08 07:05] VITALS: BP 148/81
--- NOTE | 2022-08-08 07:22 | Progress Note - Surgery ---
MARCO ANTONIO THAKUR 08/08/22 0722: Subjective Date Seen by a Provider: Aug 08, 2022 Time Seen by a Provider: 07:16 Subjective/Events-last exam 62 M s/p Lt ERIC is resting comfortably in bed with family at bedside. Pt reports Lt LE pain that is shard and intermittent rated 8/10 and does not radiate anyw here. Last dressing changed showed several small blisters with surrounding erythema and mild discharge but wound appears to be healing well. Pt toelrating PT/OT w/o complaints. Reports no issues with BMs and voids. Tolerating diet Review of Systems General: No Chills, No Night Sweats HEENT: No Head Aches, No Dysphasia Pulmonary: No Dyspnea, No Cough Cardiovascular: No: Chest Pain, Palpitations Gastrointestinal: No: Nausea, Vomiting, Abdominal Pain Genitourinary: No Dysuria, No Frequency Musculoskeletal: leg pain; No: back pain Neurological: No: Weakness, Numbness Objective Exam Vital Signs Date Time Temp Pulse Resp B/P (MAP) Pulse Ox O2 Delivery O2 Flow Rate FiO2 08/08/22 07:05 36.0 87 16 148/81 (103) 96 Room Air 08/07/22 21:30 95 Room Air 08/07/22 20:50 36.5 91 20 115/69 (84) 95 Room Air 08/07/22 08:24 99 Room Air I & O 08/08/22 07:00 Intake Total 2280 ml Balance 2280 ml Capillary Refill : General Appearance: No Apparent Distress, WD/WN, Chronically ill, Obese HEENT: PERRL/EOMI, Other Neck: Full Range of Motion, Normal Inspection, Non Tender, Supple Respiratory: Chest Non Tender, Lungs Clear, Normal Breath Sounds, No Accessory Muscle Use, No Respiratory Distress Cardiovascular: Regular Rate, Rhythm, No Edema, No Gallop, No JVD, No Murmur, Normal Peripheral Pulses Peripheral Pulses: 3+ Dorsalis Pedis (R), 3+ Radial Pulses (R), 3+ Radial Pulses (L) Gastrointestinal: normal bowel sounds, non tender, soft, no organomegaly, no pulsatile mass Extremity: Normal Capillary Refill, Normal Inspection, Normal Range of Motion, Non Tender, No Calf Tenderness, No Pedal Edema, Other (LBKA) Neurologic/Psychiatric: Alert, Oriented x3, Normal Mood/Affect Skin: Normal Color, Warm/Dry Lymphatic: No Adenopathy Assessment/Plan Assessment/Plan Assessment/Plan s/p Lt BKA DM II Continue inpt PT/OT continue proper pain control continue to moniture serum glucose and electrolytes Continue proper wound care [place] both pt and family on proper dressing changes CLAY MARCELO DO 08/08/221911: Subjective Subjective/Events-last exam Doing well. Pain controlled. Leg continues to improve. Serous discharge from incision-scant amount. Denies n/v fever sweats chills shortness of breath or chest pain. 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 I reviewed and verified all information documented by the medical student and made modifications to such information, when appropriate. I personally performed the physical exam and medical decision making. Clay Marcelo, Aug 08, 2022,19:12 MARCO ANTONIO THAKUR Aug 08, 2022 07:22 CLAY MARCELO DO Aug 08, 2022 19:12
[2022-08-08] MEDS: metFORMIN 500 MG (GLUCOPHAGE) TAB PO SCH ×2 (08:04→17:29)
[2022-08-08] MEDS: meTOprolol TARTRATE 50 MG (LOPRESSOR) TAB PO SCH ×2 (08:04→20:47)
[2022-08-08] MEDS: PREGABALIN 150 MG (LYRICA) CAPSULE PO SCH ×3 (08:04→20:46)
[2022-08-08] MEDS: PANTOPRAZOLE 20 MG TABLET (PROTONIX) PO SCH (08:04)
[2022-08-08] MEDS: OXYBUTYNIN (DITROPAN) 5 MG TAB PO SCH ×2 (08:04→20:46)
[2022-08-08] MEDS: ENOXAPARIN 40 MG/0.4 ML (LOVENOX) SYR SC SCH (08:07)
--- NOTE | 2022-08-08 09:20 | Physical Therapy Daily Note ---
PT Daily Note-Current Subjective Patient sitting EOB pre tx, agrees to PT, has 9/10 pain, nurse gives meds. Pain Section J - Health Conditions 1. Rarely or not at all 2. Occasionally 3. Frequently 4. Almost constantly 8. Unable to answer Pain Effect on Sleep: 3 Pain Interference with Therapy: 3 Pain Interference w/Day-to-Day: 3 Appearance Patient in WC at bedside post tx with nurse call, has OT right after PT. Mental Status Patient Orientation: Person, Place, Situation, Normal For Age Transfers SCALE: Activities may be completed with or without assistive devices. 8-Dperkxrddk-gmejenn completes the activity by him/herself with no assistance from a helper. 5-Set-up or Clean-up Assistance-helper sets up or cleans up; patient completes activity. [place] assists only prior to or following the activity. 4-Supervision or Touching Assistance-helper provides verbal cues and/or touching/steadying and/or contact guard assistance as patient completes activity. Assistance may be provided throughout the activity or intermittently. 3-Partial/Moderate Assistance-helper does LESS THAN HALF the effort. [place] lifts, holds or supports trunk or limbs, but provides less than half the effort. 2-Substantial/Maximal Assistance-helper does MORE THAN HALF the effort. [place] lifts or holds trunk or limbs and provides more than half the effort. 2-Qlfxxlviy-pcjvnk does ALL the effort. Patient does none of the effort to complete the activity. Or, the assistance of 2 or more helpers is required for the patient to complete the activity. If activity was not attempted, code reason: 7-Patient Refused. 9-Not Applicable-not attempted and the patient did not perform the activity before the current illness, exacerbation or injury. 10-Not Attempted due to Environmental Limitations-(lack of equipment, weather restraints, etc.). 88-Not Attempted due to Medical Conditions or Safety Concerns. Sit to Stand (QC): 4 Chair/Per-vp-Gclna Xfer(QC): 4 CGA Gait Training Distance: 20'x3 Walk 10 feet (QC): 4 Gait Persons Needed: 1 Gait Assistive Device: FWW CGA, slightly better foot clearance, cues for step length Wheelchair Training Does the Pt Use a Wheelchair?: Yes Wheel 50 ft with 2 turns (QC): 6 Wheel 150 ft (QC): 6 Type of Wheelchair: Manual 300' Exercises NuStep Minutes: 15 NuStep Workload: 5 Treatments transfers, ambulation, strengthening, WC mobility Assessment Current Status: Fair Progress improving endurance and ambulation PT Short Term Goals Short Term Goals Time Frame: Aug 13, 2022 Sit to stand: 4 (SBA) Chair/sda-im-jxxyx transfer: 4 (SBA) Walk 10 feet: 4 (SBA) PT Assisted Goals Assisted Goals PT Bed Control Specialist Goals Time Frame: Aug 20, 2022 Roll Left & Right (QC): 6 Sit to Lying (QC): 6 Lying-Sitting on Side/Bed(QC): 6 Sit to Stand (QC): 6 Chair/Msz-cq-Ahhrz Xfer(QC): 6 Toilet Transfer (QC): 6 Car Transfer (QC): 6 Does the Patient Walk: Yes Walk 10 feet (QC): 6 Walk 50ft with 2 Turns (QC): 6 Walk 150 ft (QC): 88 Walking 10ft on Uneven Surface: 6 1 Step (curb) (QC): 4 (SBA) 4 Steps (QC): 88 12 Steps (QC): 88 Picking up an Object (QC): 4 (SBA using a driving school instructor) Wheel 50 feet with 2 turns (QC: 6 Wheel 150 feet: 6 PT Plan Problem List Problem List: Activity Tolerance, Functional Strength, Safety, Balance, Gait, Transfer, Bed Mobility, ROM Treatment/Plan Treatment Plan: Continue Plan of Care Treatment Plan: Bed Mobility, Education, Functional Activity Han, Functional Strength, Group Therapy, Gait, Safety, Therapeutic Exercise, Transfers Treatment Duration: Aug 20, 2022 Frequency: At least 5 of 7 days/Wk (IRF) Estimated Hrs Per Day: 1.5 hours per day Patient and/or Family Agrees t: Yes Safety Risks/Education Patient Education: Gait Training, Transfer Techniques, Correct Positioning, W/C Management, Safety Issues Teaching Recipient: Patient Teaching Methods: Demonstration, Discussion Response to Teaching: Reinforcement Needed Time Time In: 0800 Time Out: 0900 DATE: Aug 08, 2022 Total Billed Treatment Time: 60 Total Billed Treatment 1 visit EX 15' FA 45' CAROL STEELE PT Aug 08, 2022 09:20
--- NOTE | 2022-08-08 09:23 | Occupational Ther Daily Note ---
OT Current Status-Daily Note Subjective Pt agreeable to OT Tx, up in w/c. Mental Status/Objective Patient Orientation: Normal For Age ADL-Treatment Therapy Code Descriptions/Definitions Functional [place] Measure: 0=Not Assessed/NA 4=Minimal Assistance 1=Total Assistance 5=Supervision or Setup 2=Maximal Assistance 6=Modified [place] 3=Moderate Assistance 7=Complete IndependenceSCALE: Activities may be completed with or without assistive devices. 3-Ksvmulwdpc-pbziqrb completes the activity by him/herself with no assistance from a helper. 5-Set-up or Clean-up Assistance-helper sets up or cleans up; patient completes activity. [place] assists only prior to or following the activity. 4-Supervision or Touching Assistance-helper provides verbal cues and/or touching/steadying and/or contact guard assistance as patient completes activity. Assistance may be provided throughout the activity or intermittently. 3-Partial/Moderate Assistance-helper does LESS THAN HALF the effort. [place] lifts, holds or supports trunk or limbs, but provides less than half the effort. 2-Substantial/Maximal Assistance-helper does MORE THAN HALF the effort. [place] lifts or holds trunk or limbs and provides more than half the effort. 0-Xezpryreu-qfkljn does ALL the effort. Patient does none of the effort to complete the activity. Or, the assistance of 2 or more helpers is required for the patient to complete the activity. If activity was not attempted, code reason: 7-Patient Refused. 9-Not Applicable-not attempted and the patient did not perform the activity before the current illness, exacerbation or injury. 10-Not Attempted due to Environmental Limitations-(lack of equipment, weather restraints, etc.). 88-Not Attempted due to Medical Conditions or Safety Concerns. Other Treatment Pt up in w/c, propelled w/c to therapy gym independently. OT tx focused on increasing BUE Strength and activity tolerance. Pt completed UE reaching task, 2lb wrist weights BUES. Pt completed nut/bolt block, placing/removing nuts/bolts 2x16, rest breaks as needed. Pt propelled w/c around [facility] common area, and back to his room. SPT from w/c to bed, SBA. Post tx, pt supine in bed, call light in reach and all need met. Education OT Patient Education: Correct positioning, Energy conservation, Modified ADL techniques, Progress toward Goal/Update tx plan, Purpose of tx/functional activities, Rehab process Teaching Recipient: Patient Teaching Methods: Discussion Response to Teaching: Verbalize Understanding OT Short Term Goals Short Term Goals Time Frame: Aug 16, 2022 Toileting hygiene: 4 Shower/bathe self: 4 Lower body dressin Putting on/taking off footwear: 5 OT Prison Goals Prison Goals Time Frame: Aug 30, 2022 Acute change in mental status: 0 Inattention: 0 Disorganized thinkin Altered level of consciousness: 0 Eating (QC): 6 Oral Hygiene (QC): 6 Toileting Hygiene (QC): 6 Shower/Bathe Self (QC): 5 Upper Body Dressing (QC): 6 Lower Body Dressing (QC): 6 On/Off Footwear (QC): 6 Additional Goals: 1-Demonstrate ADL Tasks, 2-Verbalize Understanding, 3-ImproveStrength/Han 1=Demonstrate adherence to instructed precautions during ADL tasks. 2=Patient will verbalize/demonstrate understanding of assistive devices/modifications for ADL. 3=Patient will improve strength/tolerance for activity to enable patient to perform ADL's. OT Education/Plan Problem List/Assessment Assessment: Decreased Activ Tolerance, Impaired Funct Balance, Impaired I ADL's, Impaired Self-Care Skills Discharge Recommendations Plan/Recommendations: Continue POC Treatment Plan/Plan of Care Patient would benefit from OT for education, treatment and training to promote independence in ADL's, mobility, safety and/or upper extremity function for ADL's. Plan of Care: ADL Retraining, Functional Mobility, Group Exercise/Act as Ind, UE Funct Exercise/Act Treatment Duration: Aug 30, 2022 Frequency: At least 5 of 7 days/Wk (IRF) Estimated Hrs Per Day: 1.5 hours per day Agreement: Yes Rehab Potential: Fair Time Start Time: 09:00 Stop Time: 10:00 DATE: Aug 08, 2022 Total Time Billed (hr/min): 60 Billed Treatment Time 1, FA 4 KARAN GONSALES OT Aug 08, 2022 09:23
[2022-08-08] MEDS: polyethylene glycoL POWDER 17 GM (MIRALAX) PACK PO SCH ×2 (10:29→20:50)
--- NOTE | 2022-08-08 10:54 | Physical Therapy Daily Note ---
PT Daily Note-Current Subjective Patient in bed pre tx, agrees to PT, has 7/10 pain in left leg. Pain Section J - Health Conditions 1. Rarely or not at all 2. Occasionally 3. Frequently 4. Almost constantly 8. Unable to answer Pain Effect on Sleep: 3 Pain Interference with Therapy: 3 Pain Interference w/Day-to-Day: 3 Appearance Patient in bed post tx with nurse call, phone, tray, all needs met. Mental Status Patient Orientation: Person, Place, Situation, Normal For Age Transfers SCALE: Activities may be completed with or without assistive devices. 7-Lcjawwrgav-zonhpuz completes the activity by him/herself with no assistance from a helper. 5-Set-up or Clean-up Assistance-helper sets up or cleans up; patient completes activity. [place] assists only prior to or following the activity. 4-Supervision or Touching Assistance-helper provides verbal cues and/or touching/steadying and/or contact guard assistance as patient completes activity. Assistance may be provided throughout the activity or intermittently. 3-Partial/Moderate Assistance-helper does LESS THAN HALF the effort. [place] lifts, holds or supports trunk or limbs, but provides less than half the effort. 2-Substantial/Maximal Assistance-helper does MORE THAN HALF the effort. [place] lifts or holds trunk or limbs and provides more than half the effort. 1-Hcqgyckrg-tzrdiq does ALL the effort. Patient does none of the effort to complete the activity. Or, the assistance of 2 or more helpers is required for the patient to complete the activity. If activity was not attempted, code reason: 7-Patient Refused. 9-Not Applicable-not attempted and the patient did not perform the activity before the current illness, exacerbation or injury. 10-Not Attempted due to Environmental Limitations-(lack of equipment, weather restraints, etc.). 88-Not Attempted due to Medical Conditions or Safety Concerns. Roll Left & Right (QC): 6 Sit to Lying (QC): 6 Lying to Sitting/Side of Bed(Q: 6 Sit to Stand (QC): 4 Chair/Cxa-ob-Xxpqp Xfer(QC): 4 Wheelchair Training Does the Pt Use a Wheelchair?: Yes Wheel 50 ft with 2 turns (QC): 6 Type of Wheelchair: Manual 120'x2 Exercises Standin way Ex=Flex, Abd, Ext (LLE ), Mini squats Standing Reps: 20 RLE LAQ for 5 min with 3# ankle weight Assessment Current Status: Fair Progress improving transfers PT Short Term Goals Short Term Goals Time Frame: Aug 13, 2022 Sit to stand: 4 (SBA) Chair/wub-mx-ymhyv transfer: 4 (SBA) Walk 10 feet: 4 (SBA) PT Bicycle Repair Technician Goals Bicycle Repair Technician Goals PT Bicycle Repair Technician Goals Time Frame: Aug 20, 2022 Roll Left & Right (QC): 6 Sit to Lying (QC): 6 Lying-Sitting on Side/Bed(QC): 6 Sit to Stand (QC): 6 Chair/Bce-hv-Opaya Xfer(QC): 6 Toilet Transfer (QC): 6 Car Transfer (QC): 6 Does the Patient Walk: Yes Walk 10 feet (QC): 6 Walk 50ft with 2 Turns (QC): 6 Walk 150 ft (QC): 88 Walking 10ft on Uneven Surface: 6 1 Step (curb) (QC): 4 (SBA) 4 Steps (QC): 88 12 Steps (QC): 88 Picking up an Object (QC): 4 (SBA using a aluminum boat inspector) Wheel 50 feet with 2 turns (QC: 6 Wheel 150 feet: 6 PT Plan Problem List Problem List: Activity Tolerance, Functional Strength, Safety, Balance, Gait, Transfer, Bed Mobility, ROM Treatment/Plan Treatment Plan: Continue Plan of Care Treatment Plan: Bed Mobility, Education, Functional Activity Han, Functional Strength, Group Therapy, Gait, Safety, Therapeutic Exercise, Transfers Treatment Duration: Aug 20, 2022 Frequency: At least 5 of 7 days/Wk (IRF) Estimated Hrs Per Day: 1.5 hours per day Patient and/or Family Agrees t: Yes Safety Risks/Education Patient Education: Transfer Techniques, Correct Positioning, W/C Management, Safety Issues Teaching Recipient: Patient Teaching Methods: Demonstration, Discussion Response to Teaching: Reinforcement Needed Time Time In: 1030 Time Out: 1100 DATE: Aug 08, 2022 Total Billed Treatment Time: 30 Total Billed Treatment 1 visit EX 15' FA 15' CAROL STEELE PT Aug 08, 2022 10:54
--- NOTE | 2022-08-08 10:58 | PM&R Progress Note ---
Subjective HPI/CC On Admission Date Seen by Provider: Aug 08, 2022 Time Seen by Provider: 11:00 Subjective/Events-last exam 08/08/2022: No major issues Holding Levemir due to hypoglycemia Change in diet compared to home has really decreased his insulin requirements 08/07/2022: Patient doing well Participation in therapy is good Hypoglycemia noted this am Pain controlled Review of Systems General: Fatigue, Malaise Objective Exam Vital Signs Vital Signs Date Time Temp Pulse Resp B/P (MAP) Pulse Ox O2 Delivery O2 Flow Rate FiO2 08/08/22 20:50 94 Room Air 08/08/22 20:00 36.7 90 18 128/66 (86) Capillary Refill : General Appearance: No Apparent Distress, WD/WN, Chronically ill, Obese HEENT: PERRL/EOMI, Other Neck: Full Range of Motion, Normal Inspection, Non Tender, Supple Respiratory: Chest Non Tender, Lungs Clear, Normal Breath Sounds, No Accessory Muscle Use, No Respiratory Distress Cardiovascular: Regular Rate, Rhythm, No Edema, No Gallop, No JVD, No Murmur, N ormal Peripheral Pulses Gastrointestinal: Normal Bowel Sounds, No Organomegaly, No Pulsatile Mass, Non Tender, Soft Back: Normal Inspection, No CVA Tenderness, No Vertebral Tenderness Extremity: Normal Capillary Refill, Normal Inspection, Normal Range of Motion, Non Tender, No Calf Tenderness, No Pedal Edema, Other (LBKA) Neurologic/Psychiatric: Alert, Oriented x3, Normal Mood/Affect Skin: Normal Color, Warm/Dry Lymphatic: No Adenopathy Results/Procedures Lab Patient resulted labs reviewed. FIM Transfers Therapy Code Descriptions/Definitions Functional [place] Measure: 0=Not Assessed/NA 4=Minimal Assistance 1=Total Assistance 5=Supervision or Setup 2=Maximal Assistance 6=Modified [place] 3=Moderate Assistance 7=Complete IndependenceSCALE: Activities may be completed with or without assistive devices. 5-Ezpezgxlwk-spjdggf completes the activity by him/herself with no assistance from a helper. 5-Set-up or Clean-up Assistance-helper sets up or cleans up; patient completes activity. [place] assists only prior to or following the activity. 4-Supervision or Touching Assistance-helper provides verbal cues and/or touching/steadying and/or contact guard assistance as patient completes activity. Assistance may be provided throughout the activity or intermittently. 3-Partial/Moderate Assistance-helper does LESS THAN HALF the effort. [place] lifts, holds or supports trunk or limbs, but provides less than half the effort. 2-Substantial/Maximal Assistance-helper does MORE THAN HALF the effort. [place] lifts or holds trunk or limbs and provides more than half the effort. 9-Ckkzyqsli-bvgjyc does ALL the effort. Patient does none of the effort to complete the activity. Or, the assistance of 2 or more helpers is required for the patient to complete the activity. If activity was not attempted, code reason: 7-Patient Refused. 9-Not Applicable-not attempted and the patient did not perform the activity before the current illness, exacerbation or injury. 10-Not Attempted due to Environmental Limitations-(lack of equipment, weather restraints, etc.). 88-Not Attempted due to Medical Conditions or Safety Concerns. Roll Left to Right (QC): 6 Sit to Lying (QC): 6 Sit to Stand (QC): 4 Chair/Mgo-ji-Saxim Xfer(QC): 4 Car Transfer (QC): 4 Gait Training Does the Patient Walk?: Yes Distance: 20'x3 Walk 10 feet (QC): 4 Walk 50 ft with 2 Turns(QC): 88 Walk 150 ft (QC): 88 Walking 10ft/uneven surface-QC: 4 Gait Persons Needed: 1 Gait Assistive Device: FWW Wheelchair Training Does the Pt Use a Wheelchair?: Yes Wheel 50 ft with 2 turns (QC): 6 Wheel 150 ft (QC): 6 Type of Wheelchair: Manual Stair Training #of Steps: 1 1 Step (curb) (QC): 4 4 Steps (QC): 88 12 Steps (QC): 88 Balance Picking up an Object (QC): 4 (CGA using a plasterer journeyman) ADL-Treatment Eating (QC): 6 Oral Hygiene (QC): 5 Shower/Bathe Self (QC): 4 (SBA) Upper Body Dressing (QC): 5 Lower Body Dressing (QC): 4 (CGA) On/Off Footwear (QC): 3 (Mod A overall with R sock/shoe, and L stump appeals representative) Toileting Hygiene (QC): 4 (CGA) Assessment/Plan Assessment and Plan Assess & Plan/Chief Complaint Assessment: LBKA DM HTN HLP Obesity Anemia post op acute blood loss type Plan: Monitor closely Fall risk DM management Lovenox 08/07/2022: Monitor closely Pain control Minimize insulin 08/08/2022: Monitor sugar Hold Levemir (1) Status post below-knee amputation of left lower extremity Status: Acute (2) T2DM (type 2 diabetes mellitus) Status: Chronic (3) HLD (hyperlipidemia) Status: Chronic (4) Obesity Status: Chronic TYLER CONTRERAS DO Aug 08, 2022 10:58
[2022-08-08] MEDS: SENNA W/DOCUSATE (SENOKOT S) TABLET PO SCH ×2 (11:48→20:51)
[2022-08-08] MEDS: DOCUSATE SODIUM 100 MG (COLACE) CAP PO SCH ×2 (11:48→20:46)
--- NOTE | 2022-08-08 14:54 | Occupational Ther Daily Note ---
OT Current Status-Daily Note Subjective Pt in bed, agreeable to OT Tx. Mental Status/Objective Patient Orientation: Normal For Age ADL-Treatment Therapy Code Descriptions/Definitions Functional [place] Measure: 0=Not Assessed/NA 4=Minimal Assistance 1=Total Assistance 5=Supervision or Setup 2=Maximal Assistance 6=Modified [place] 3=Moderate Assistance 7=Complete IndependenceSCALE: Activities may be completed with or without assistive devices. 3-Dixpwjhcor-upuvuax completes the activity by him/herself with no assistance from a helper. 5-Set-up or Clean-up Assistance-helper sets up or cleans up; patient completes activity. [place] assists only prior to or following the activity. 4-Supervision or Touching Assistance-helper provides verbal cues and/or touching/steadying and/or contact guard assistance as patient completes activity. Assistance may be provided throughout the activity or intermittently. 3-Partial/Moderate Assistance-helper does LESS THAN HALF the effort. [place] lifts, holds or supports trunk or limbs, but provides less than half the effort. 2-Substantial/Maximal Assistance-helper does MORE THAN HALF the effort. [place] lifts or holds trunk or limbs and provides more than half the effort. 8-Twccsxihq-woujkm does ALL the effort. Patient does none of the effort to complete the activity. Or, the assistance of 2 or more helpers is required for the patient to complete the activity. If activity was not attempted, code reason: 7-Patient Refused. 9-Not Applicable-not attempted and the patient did not perform the activity before the current illness, exacerbation or injury. 10-Not Attempted due to Environmental Limitations-(lack of equipment, weather restraints, etc.). 88-Not Attempted due to Medical Conditions or Safety Concerns. Toileting Hygiene (QC): 3 (Mod A donning/doffing R shoe) Other Treatment Pt transferred supine to EOB independently, SPT to w/c SBA. Pt propelled w/c to therapy gym independently. In order to increase BUE strength and activity tolerance, pt completed arm bike x15 mins, 20 Watt resistance. Pt propelled w/c around [facility] common area and back to his room. Pt transferred back to bed, SPT, SBA. Post tx, pt in bed, call light in reach and all needs met. Education OT Patient Education: Correct positioning, Energy conservation, Modified ADL techniques, Progress toward Goal/Update tx plan, Purpose of tx/functional activities, Rehab process Teaching Recipient: Patient Teaching Methods: Discussion Response to Teaching: Verbalize Understanding OT Short Term Goals Short Term Goals Time Frame: Aug 16, 2022 Toileting hygiene: 4 Shower/bathe self: 4 Lower body dressin Putting on/taking off footwear: 5 OT Dietitian Helper Goals Dietitian Helper Goals Time Frame: Aug 30, 2022 Acute change in mental status: 0 Inattention: 0 Disorganized thinkin Altered level of consciousness: 0 Eating (QC): 6 Oral Hygiene (QC): 6 Toileting Hygiene (QC): 6 Shower/Bathe Self (QC): 5 Upper Body Dressing (QC): 6 Lower Body Dressing (QC): 6 On/Off Footwear (QC): 6 Additional Goals: 1-Demonstrate ADL Tasks, 2-Verbalize Understanding, 3- ImproveStrength/Han 1=Demonstrate adherence to instructed precautions during ADL tasks. 2=Patient will verbalize/demonstrate understanding of assistive devices/modifications for ADL. 3=Patient will improve strength/tolerance for activity to enable patient to perform ADL's. OT Education/Plan Problem List/Assessment Assessment: Decreased Activ Tolerance, Decreased UE Strength, Impaired Funct Balance, Impaired I ADL's, Impaired Self-Care Skills Discharge Recommendations Plan/Recommendations: Continue POC Treatment Plan/Plan of Care Patient would benefit from OT for education, treatment and training to promote independence in ADL's, mobility, safety and/or upper extremity function for ADL's. Plan of Care: ADL Retraining, Functional Mobility, Group Exercise/Act as Ind, UE Funct Exercise/Act Treatment Duration: Aug 30, 2022 Frequency: At least 5 of 7 days/Wk (IRF) Estimated Hrs Per Day: 1.5 hours per day Agreement: Yes Rehab Potential: Fair Time Start Time: 14:30 Stop Time: 15:00 DATE: Aug 08, 2022 Total Time Billed (hr/min): 30 Billed Treatment Time 1, EX (15'), FA (15') KARAN GONSALES OT Aug 08, 2022 14:54
[2022-08-08] MEDS: MULTIVIT W/MINERALS TAB (THERAGRAN M) PO SCH (17:29)
[2022-08-08] MEDS: ASPIRIN E.C. 81 MG (ECOTRIN) TAB PO SCH (17:29)
[2022-08-08 20:00] VITALS: BP 128/66
--- NOTE | 2022-08-09 05:13 | PM&R Progress Note ---
Subjective HPI/CC On Admission Date Seen by Provider: Aug 09, 2022 Time Seen by Provider: 11:00 Subjective/Events-last exam 08/09/2022: Patient doing well Blood sugars much better by holding Levemir No hypoglycemia Participating in therapy 08/08/2022: No major issues Holding Levemir due to hypoglycemia Change in diet compared to home has really decreased his insulin requirements 08/07/2022: Patient doing well Participation in therapy is good Hypoglycemia noted this am Pain controlled Review of Systems General: Fatigue, Malaise Musculoskeletal: leg pain Objective Exam Vital Signs Vital Signs Date Time Temp Pulse Resp B/P (MAP) Pulse Ox O2 Delivery O2 Flow Rate FiO2 08/09/22 20:55 36.1 95 20 152/78 (102) 95 Room Air Capillary Refill : General Appearance: No Apparent Distress, WD/WN, Chronically ill, Obese HEENT: PERRL/EOMI, Other Neck: Full Range of Motion, Normal Inspection, Non Tender, Supple Respiratory: Chest Non Tender, Lungs Clear, Normal Breath Sounds, No Accessory Muscle Use, No Respiratory Distress Cardiovascular: Regular Rate, Rhythm, No Edema, No Gallop, No JVD, No Murmur, Normal Peripheral Pulses Gastrointestinal: Normal Bowel Sounds, No Organomegaly, No Pulsatile Mass, Non Tender, Soft Back: Normal Inspection, No CVA Tenderness, No Vertebral Tenderness Extremity: Normal Capillary Refill, Normal Inspection, Normal Range of Motion, Non Tender, No Calf Tenderness, No Pedal Edema, Other (LBKA) Neurologic/Psychiatric: Alert, Oriented x3, Normal Mood/Affect Skin: Normal Color, Warm/Dry Lymphatic: No Adenopathy Results/Procedures Lab Patient resulted labs reviewed. FIM Transfers Therapy Code Descriptions/Definitions Functional [place] Measure: 0=Not Assessed/NA 4=Minimal Assistance 1=Total Assistance 5=Supervision or Setup 2=Maximal Assistance 6=Modified [place] 3=Moderate Assistance 7=Complete IndependenceSCALE: Activities may be completed with or without assistive devices. 7-Jszytjtlat-qhrjurw completes the activity by him/herself with no assistance from a helper. 5-Set-up or Clean-up Assistance-helper sets up or cleans up; patient completes activity. [place] assists only prior to or following the activity. 4-Supervision or Touching Assistance-helper provides verbal cues and/or touching/steadying and/or contact guard assistance as patient completes activity. Assistance may be provided throughout the activity or intermittently. 3-Partial/Moderate Assistance-helper does LESS THAN HALF the effort. [place] lifts, holds or supports trunk or limbs, but provides less than half the effort. 2-Substantial/Maximal Assistance-helper does MORE THAN HALF the effort. [place] lifts or holds trunk or limbs and provides more than half the effort. 5-Pgqnsxchg-kpgmsk does ALL the effort. Patient does none of the effort to complete the activity. Or, the assistance of 2 or more helpers is required for the patient to complete the activity. If activity was not attempted, code reason: 7-Patient Refused. 9-Not Applicable-not attempted and the patient did not perform the activity before the current illness, exacerbation or injury. 10-Not Attempted due to Environmental Limitations-(lack of equipment, weather restraints, etc.). 88-Not Attempted due to Medical Conditions or Safety Concerns. Roll Left to Right (QC): 6 Sit to Lying (QC): 6 Sit to Stand (QC): 4 Chair/Ogn-rw-Hotcu Xfer(QC): 4 Car Transfer (QC): 4 Gait Training Does the Patient Walk?: Yes Distance: 20'x3 Walk 10 feet (QC): 4 Walk 50 ft with 2 Turns(QC): 88 Walk 150 ft (QC): 88 Walking 10ft/uneven surface-QC: 4 Gait Persons Needed: 1 Gait Assistive Device: FWW Wheelchair Training Does the Pt Use a Wheelchair?: Yes Wheel 50 ft with 2 turns (QC): 6 Wheel 150 ft (QC): 6 Type of Wheelchair: Manual Stair Training #of Steps: 1 1 Step (curb) (QC): 4 4 Steps (QC): 88 12 Steps (QC): 88 Balance Picking up an Object (QC): 4 (CGA using a promotions manager) ADL-Treatment Eating (QC): 6 Oral Hygiene (QC): 5 Shower/Bathe Self (QC): 4 (SBA) Upper Body Dressing (QC): 5 Lower Body Dressing (QC): 4 (CGA) On/Off Footwear (QC): 3 (Mod A overall with R sock/shoe, and L stump page designer) Toileting Hygiene (QC): 3 (Mod A donning/doffing R shoe) Assessment/Plan Assessment and Plan Assess & Plan/Chief Complaint Assessment: LBKA DM HTN HLP Obesity Anemia post op acute blood loss type Plan: Monitor closely Fall risk DM management Lovenox 08/07/2022: Monitor closely Pain control Minimize insulin 08/08/2022: Monitor sugar Hold Levemir 08/09/2022: Supportive care Monitor closely (1) Status post below-knee amputation of left lower extremity Status: Acute (2) T2DM (type 2 diabetes mellitus) Status: Chronic (3) HLD (hyperlipidemia) Status: Chronic (4) Obesity Status: Chronic TYLER CONTRERAS DO Aug 09, 2022 05:13
[2022-08-09] MEDS: inSUlin ASPART (NovoLOG) 1 UNIT/0.01 ML (CHARGE PER UNIT) SC SCH ×4 (06:08→21:38)
[2022-08-09 07:28] VITALS: BP 159/77
[2022-08-09] MEDS: ENOXAPARIN 40 MG/0.4 ML (LOVENOX) SYR SC SCH (08:03)
[2022-08-09] MEDS: metFORMIN 500 MG (GLUCOPHAGE) TAB PO SCH ×2 (08:04→17:05)
[2022-08-09] MEDS: polyethylene glycoL POWDER 17 GM (MIRALAX) PACK PO SCH ×2 (08:04→22:02)
[2022-08-09] MEDS: PREGABALIN 150 MG (LYRICA) CAPSULE PO SCH ×3 (08:04→22:01)
[2022-08-09] MEDS: meTOprolol TARTRATE 50 MG (LOPRESSOR) TAB PO SCH ×2 (08:04→22:01)
[2022-08-09] MEDS: OXYBUTYNIN (DITROPAN) 5 MG TAB PO SCH ×2 (08:04→22:01)
[2022-08-09] MEDS: DOCUSATE SODIUM 100 MG (COLACE) CAP PO SCH ×2 (08:04→22:02)
[2022-08-09] MEDS: SENNA W/DOCUSATE (SENOKOT S) TABLET PO SCH ×2 (08:04→22:02)
[2022-08-09] MEDS: PANTOPRAZOLE 20 MG TABLET (PROTONIX) PO SCH (08:04)
--- NOTE | 2022-08-09 09:25 | Physical Therapy Daily Note ---
PT Daily Note-Current Subjective Patient in bed pre tx, agrees to PT, has 6/10 pain in left leg, nurse in room gives meds. Will be co-treating with OT for part of tx due to poor patient mobility, strength, endurance, coordinate UE and LE during activity, safety and reduce risk of falls. Pain Section J - Health Conditions 1. Rarely or not at all 2. Occasionally 3. Frequently 4. Almost constantly 8. Unable to answer Pain Effect on Sleep: 3 Pain Interference with Therapy: 3 Pain Interference w/Day-to-Day: 3 Appearance Patient in restroom post tx, will continue working with OT. Mental Status Patient Orientation: Normal For Age Transfers SCALE: Activities may be completed with or without assistive devices. 0-Zbtrnkmguc-izcwduo completes the activity by him/herself with no assistance from a helper. 5-Set-up or Clean-up Assistance-helper sets up or cleans up; patient completes activity. [place] assists only prior to or following the activity. 4-Supervision or Touching Assistance-helper provides verbal cues and/or touching/steadying and/or contact guard assistance as patient completes activity. Assistance may be provided throughout the activity or intermittently. 3-Partial/Moderate Assistance-helper does LESS THAN HALF the effort. [place] lifts, holds or supports trunk or limbs, but provides less than half the effort. 2-Substantial/Maximal Assistance-helper does MORE THAN HALF the effort. [place] lifts or holds trunk or limbs and provides more than half the effort. 3-Jbpdkunvz-llggiz does ALL the effort. Patient does none of the effort to complete the activity. Or, the assistance of 2 or more helpers is required for the patient to complete the activity. If activity was not attempted, code reason: 7-Patient Refused. 9-Not Applicable-not attempted and the patient did not perform the activity before the current illness, exacerbation or injury. 10-Not Attempted due to Environmental Limitations-(lack of equipment, weather restraints, etc.). 88-Not Attempted due to Medical Conditions or Safety Concerns. Roll Left & Right (QC): 6 Sit to Lying (QC): 6 Lying to Sitting/Side of Bed(Q: 6 Sit to Stand (QC): 4 Chair/Lzi-py-Dtdsk Xfer(QC): 4 Patient can now do a modified squat pivot with SBA to either side. Assist patient getting into restroom and with undressing and showering, assist with balance and positioning. Gait Training Does the Patient Walk?: Yes Distance: 20'x3, 10' Walk 10 feet (QC): 4 Gait Assistive Device: FWW CGA, still has a little difficulty guaging step length Wheelchair Training Does the Pt Use a Wheelchair?: Yes Wheel 50 ft with 2 turns (QC): 6 Wheel 150 ft (QC): 6 Type of Wheelchair: Manual 300'x2 Exercises Supine Ex: Short Arc Quads (LLE knee flex/ext with leg elevated), Straight leg raise, Hip abd/add (sidelying) Supine Reps: 20 supine knee extension stretch 5 min, manual hip extension stretch sidelying Treatments PT performed bed mobility and transfers, ambulation, stretching, strengthening, positioning and safety during undressing and bathing, WC mobility, OT performed dressing and bathing, UE positioning and safety during activity Assessment Current Status: Fair Progress slowly improving general mobility PT Short Term Goals Short Term Goals Time Frame: Aug 13, 2022 Sit to stand: 4 (SBA) Chair/vzy-il-srxqt transfer: 4 (SBA) Walk 10 feet: 4 (SBA) PT Mcc Goals Endoscopy Rn Goals PT Mcc Goals Time Frame: Aug 20, 2022 Roll Left & Right (QC): 6 Sit to Lying (QC): 6 Lying-Sitting on Side/Bed(QC): 6 Sit to Stand (QC): 6 Chair/Ghl-yf-Wuedu Xfer(QC): 6 Toilet Transfer (QC): 6 Car Transfer (QC): 6 Does the Patient Walk: Yes Walk 10 feet (QC): 6 Walk 50ft with 2 Turns (QC): 6 Walk 150 ft (QC): 88 Walking 10ft on Uneven Surface: 6 1 Step (curb) (QC): 4 (SBA) 4 Steps (QC): 88 12 Steps (QC): 88 Picking up an Object (QC): 4 (SBA using a microsystems engineer) Wheel 50 feet with 2 turns (QC: 6 Wheel 150 feet: 6 PT Plan Problem List Problem List: Activity Tolerance, Functional Strength, Safety, Balance, Gait, Transfer, Bed Mobility, ROM Treatment/Plan Treatment Plan: Continue Plan of Care Treatment Plan: Bed Mobility, Education, Functional Activity Han, Functional Strength, Group Therapy, Gait, Safety, Therapeutic Exercise, Transfers Treatment Duration: Aug 20, 2022 Frequency: At least 5 of 7 days/Wk (IRF) Estimated Hrs Per Day: 1.5 hours per day Patient and/or Family Agrees t: Yes Safety Risks/Education Patient Education: Gait Training, Transfer Techniques, Correct Positioning, W/C Management, Safety Issues Teaching Recipient: Patient Teaching Methods: Demonstration, Discussion Response to Teaching: Reinforcement Needed Time Time In: 08 Time Out: 929 DATE: Aug 09, 2022 Total Billed Treatment Time: 90 Total Billed Treatment 1 visit EX 30' FA 60' co-treated with OT from [id number] CAROL STEELE PT Aug 09, 2022 09:25
--- NOTE | 2022-08-09 09:57 | Occupational Ther Daily Note ---
OT Current Status-Daily Note ADL-Treatment Therapy Code Descriptions/Definitions Functional [place] Measure: 0=Not Assessed/NA 4=Minimal Assistance 1=Total Assistance 5=Supervision or Setup 2=Maximal Assistance 6=Modified [place] 3=Moderate Assistance 7=Complete IndependenceSCALE: Activities may be completed with or without assistive devices. 1-Nyhpndzfap-ereblht completes the activity by him/herself with no assistance from a helper. 5-Set-up or Clean-up Assistance-helper sets up or cleans up; patient completes activity. [place] assists only prior to or following the activity. 4-Supervision or Touching Assistance-helper provides verbal cues and/or touching/steadying and/or contact guard assistance as patient completes activity. Assistance may be provided throughout the activity or intermittently. 3-Partial/Moderate Assistance-helper does LESS THAN HALF the effort. [place] lifts, holds or supports trunk or limbs, but provides less than half the effort. 2-Substantial/Maximal Assistance-helper does MORE THAN HALF the effort. [place] lifts or holds trunk or limbs and provides more than half the effort. 1-Jjdhjhili-cyddjp does ALL the effort. Patient does none of the effort to complete the activity. Or, the assistance of 2 or more helpers is required for the patient to complete the activity. If activity was not attempted, code reason: 7-Patient Refused. 9-Not Applicable-not attempted and the patient did not perform the activity before the current illness, exacerbation or injury. 10-Not Attempted due to Environmental Limitations-(lack of equipment, weather restraints, etc.). 88-Not Attempted due to Medical Conditions or Safety Concerns. Shower/Bathe Self (QC): 5 Upper Body Dressing (QC): 5 Lower Body Dressing (QC): 4 (SBA) On/Off Footwear: 3 (Shirlene with R shoe, assist with straps of stump protector L) Other Treatment [id number]: OT/PT cotreat due to skill of 2 clinicians required which a rehabilitation engineer could not perform in order to coordinate UE/LEs, decrease fall risk, focus on higher level balance tasks, and due to pt's limitations in strength, mobility, transfers and activity tolerance. OT focused on UE placement, ADLs, and cues for sequencing and safety. Pt propelled w/c to his room, transferred to VT using FWW. Pt doffed clothes, L stump and L arm IV access covered prior to shower (remained dry post shower). [id number] OT tx: Pt completed shower, utilizing LH sponge as needed. Pt dried off, then donned clothes. Min A with donning R shoe. Pt able to don LE clothing SBA, and shirt with set up. Pt used FWW to transfer to EOB CGA, then transferred to long seated position in bed to don stump protector. Min A required (pt able to don sleeve and plastic, assist with straps). Post tx, pt in bed, call light in reach and all needs met. Education OT Patient Education: Correct positioning, Energy conservation, Modified ADL techniques, Progress toward Goal/Update tx plan, Purpose of tx/functional activities, Rehab process Teaching Recipient: Patient Teaching Methods: Discussion Response to Teaching: Verbalize Understanding OT Short Term Goals Short Term Goals Time Frame: Aug 16, 2022 Toileting hygiene: 4 Shower/bathe self: 4 Lower body dressin Putting on/taking off footwear: 5 OT Queen Producer Goals Queen Producer Goals Time Frame: Aug 30, 2022 Acute change in mental status: 0 Inattention: 0 Disorganized thinkin Altered level of consciousness: 0 Eating (QC): 6 Oral Hygiene (QC): 6 Toileting Hygiene (QC): 6 Shower/Bathe Self (QC): 5 Upper Body Dressing (QC): 6 Lower Body Dressing (QC): 6 On/Off Footwear (QC): 6 Additional Goals: 1-Demonstrate ADL Tasks, 2-Verbalize Understanding, 3- ImproveStrength/Han 1=Demonstrate adherence to instructed precautions during ADL tasks. 2=Patient will verbalize/demonstrate understanding of assistive devices/modifications for ADL. 3=Patient will improve strength/tolerance for activity to enable patient to perform ADL's. OT Education/Plan Problem List/Assessment Assessment: Decreased Activ Tolerance, Decreased UE Strength, Impaired Funct Balance, Impaired I ADL's, Impaired Self-Care Skills Discharge Recommendations Plan/Recommendations: Continue POC Treatment Plan/Plan of Care Patient would benefit from OT for education, treatment and training to promote independence in ADL's, mobility, safety and/or upper extremity function for ADL's. Plan of Care: ADL Retraining, Functional Mobility, Group Exercise/Act as Ind, UE Funct Exercise/Act Treatment Duration: Aug 30, 2022 Frequency: At least 5 of 7 days/Wk (IRF) Estimated Hrs Per Day: 1.5 hours per day Agreement: Yes Rehab Potential: Fair Time Start Time: 09:00 Stop Time: 10:00 DATE: Aug 09, 2022 Total Time Billed (hr/min): 60 Billed Treatment Time cotreat 30', OT tx 30' 1, ADL 4 KARAN GONSALES OT Aug 09, 2022 09:57
--- NOTE | 2022-08-09 13:37 | Occupational Ther Daily Note ---
OT Current Status-Daily Note Subjective Pt alert, lying in bed. Pt agrees to therapy. No c/o pain. present in room. Mental Status/Objective Patient Orientation: Person, Place, Time, Situation ADL-Treatment Pt is having difficulty with donning L shoe. Shoe funnel and LH shoehorn brought to room to work on independence of task. Pt demonstrated ability to don shoe using top stitcher to keep shoe in place and shoe funnel to keep back of shoe in place while pt pushes heel into shoe. Pt's looked up shoe funnel and found on [employer]. After therapy, pt sitting EOB with call light/phone in reach. All needs met in room. Therapy Code Descriptions/Definitions Functional [place] Measure: 0=Not Assessed/NA 4=Minimal Assistance 1=Total Assistance 5=Supervision or Setup 2=Maximal Assistance 6=Modified [place] 3=Moderate Assistance 7=Complete IndependenceSCALE: Activities may be completed with or without assistive devices. 0-Qfkakndyiw-dwpyiyn completes the activity by him/herself with no assistance from a helper. 5-Set-up or Clean-up Assistance-helper sets up or cleans up; patient completes activity. [place] assists only prior to or following the activity. 4-Supervision or Touching Assistance-helper provides verbal cues and/or touching/steadying and/or contact guard assistance as patient completes activity. Assistance may be provided throughout the activity or intermittently. 3-Partial/Moderate Assistance-helper does LESS THAN HALF the effort. [place] lifts, holds or supports trunk or limbs, but provides less than half the effort. 2-Substantial/Maximal Assistance-helper does MORE THAN HALF the effort. [place] lifts or holds trunk or limbs and provides more than half the effort. 5-Zfesmauch-mxepht does ALL the effort. Patient does none of the effort to complete the activity. Or, the assistance of 2 or more helpers is required for the patient to complete the activity. If activity was not attempted, code reason: 7-Patient Refused. 9-Not Applicable-not attempted and the patient did not perform the activity before the current illness, exacerbation or injury. 10-Not Attempted due to Environmental Limitations-(lack of equipment, weather restraints, etc.). 88-Not Attempted due to Medical Conditions or Safety Concerns. OT Short Term Goals Short Term Goals Time Frame: Aug 16, 2022 Toileting hygiene: 4 Shower/bathe self: 4 Lower body dressin Putting on/taking off footwear: 5 OT Nursing Home Goals Nursing Home Goals Time Frame: Aug 30, 2022 Acute change in mental status: 0 Inattention: 0 Disorganized thinkin Altered level of consciousness: 0 Eating (QC): 6 Oral Hygiene (QC): 6 Toileting Hygiene (QC): 6 Shower/Bathe Self (QC): 5 Upper Body Dressing (QC): 6 Lower Body Dressing (QC): 6 On/Off Footwear (QC): 6 Additional Goals: 1-Demonstrate ADL Tasks, 2-Verbalize Understanding, 3- ImproveStrength/Han 1=Demonstrate adherence to instructed precautions during ADL tasks. 2=Patient will verbalize/demonstrate understanding of assistive devices/modifications for ADL. 3=Patient will improve strength/tolerance for activity to enable patient to perform ADL's. OT Education/Plan Problem List/Assessment Assessment: Impaired Self-Care Skills Discharge Recommendations Plan/Recommendations: Continue POC Treatment Plan/Plan of Care Patient would benefit from OT for education, treatment and training to promote independence in ADL's, mobility, safety and/or upper extremity function for ADL's. Plan of Care: ADL Retraining, Functional Mobility, Group Exercise/Act as Ind, UE Funct Exercise/Act Treatment Duration: Aug 30, 2022 Frequency: At least 5 of 7 days/Wk (IRF) Estimated Hrs Per Day: 1.5 hours per day Agreement: Yes Rehab Potential: Fair Time Start Time: 13:00 Stop Time: 13:30 DATE: Aug 09, 2022 Total Time Billed (hr/min): 30 Billed Treatment Time 1 visit-ADL 2 (30 min) ROMINA ALCAZAR Aug 09, 2022 13:37
[2022-08-09] MEDS: ASPIRIN E.C. 81 MG (ECOTRIN) TAB PO SCH (17:05)
[2022-08-09] MEDS: MULTIVIT W/MINERALS TAB (THERAGRAN M) PO SCH (17:05)
[2022-08-09 20:55] VITALS: BP 152/78
[2022-08-09 21:29] VITALS: BP 152/78
[2022-08-10] MEDS: inSUlin ASPART (NovoLOG) 1 UNIT/0.01 ML (CHARGE PER UNIT) SC SCH ×4 (06:22→21:23)
--- NOTE | 2022-08-10 06:57 | PM&R Progress Note ---
Subjective HPI/CC On Admission Date Seen by Provider: Aug 10, 2022 Time Seen by Provider: 12:00 Subjective/Events-last exam 08/10/2022: Doing well Sugars improved Doesn't perform a lot of ADL's it appears spouse takes care of all of that chronically 08/09/2022: Patient doing well Blood sugars much better by holding Levemir No hypoglycemia Participating in therapy 08/08/2022: No major issues Holding Levemir due to hypoglycemia Change in diet compared to home has really decreased his insulin requirements 08/07/2022: Patient doing well Participation in therapy is good Hypoglycemia noted this am Pain controlled Review of Systems General: Fatigue, Malaise Musculoskeletal: leg pain Objective Exam Vital Signs Vital Signs Date Time Temp Pulse Resp B/P (MAP) Pulse Ox O2 Delivery O2 Flow Rate FiO2 08/10/22 09:34 36.1 88 20 134/74 (94) 96 Room Air Capillary Refill : General Appearance: No Apparent Distress, WD/WN, Chronically ill, Obese HEENT: PERRL/EOMI, Other Neck: Full Range of Motion, Normal Inspection, Non Tender, Supple Respiratory: Chest Non Tender, Lungs Clear, Normal Breath Sounds, No Accessory Muscle Use, No Respiratory Distress Cardiovascular: Regular Rate, Rhythm, No Edema, No Gallop, No JVD, No Murmur, Normal Peripheral Pulses Gastrointestinal: Normal Bowel Sounds, No Organomegaly, No Pulsatile Mass, Non Tender, Soft Back: Normal Inspection, No CVA Tenderness, No Vertebral Tenderness Extremity: Normal Capillary Refill, Normal Inspection, Normal Range of Motion, Non Tender, No Calf Tenderness, No Pedal Edema, Other (LBKA) Neurologic/Psychiatric: Alert, Oriented x3, Normal Mood/Affect Skin: Normal Color, Warm/Dry Lymphatic: No Adenopathy Results/Procedures Lab Patient resulted labs reviewed. FIM Transfers Therapy Code Descriptions/Definitions Functional [place] Measure: 0=Not Assessed/NA 4=Minimal Assistance 1=Total Assistance 5=Supervision or Setup 2=Maximal Assistance 6=Modified [place] 3=Moderate Assistance 7=Complete IndependenceSCALE: Activities may be completed with or without assistive devices. 9-Jqsaffelip-lmdfihy completes the activity by him/herself with no assistance from a helper. 5-Set-up or Clean-up Assistance-helper sets up or cleans up; patient completes activity. [place] assists only prior to or following the activity. 4-Supervision or Touching Assistance-helper provides verbal cues and/or touching/steadying and/or contact guard assistance as patient completes activity. Assistance may be provided throughout the activity or intermittently. 3-Partial/Moderate Assistance-helper does LESS THAN HALF the effort. [place] lifts, holds or supports trunk or limbs, but provides less than half the effort. 2-Substantial/Maximal Assistance-helper does MORE THAN HALF the effort. [place] lifts or holds trunk or limbs and provides more than half the effort. 8-Envzhubcb-tbqmwi does ALL the effort. Patient does none of the effort to complete the activity. Or, the assistance of 2 or more helpers is required for the patient to complete the activity. If activity was not attempted, code reason: 7-Patient Refused. 9-Not Applicable-not attempted and the patient did not perform the activity before the current illness, exacerbation or injury. 10-Not Attempted due to Environmental Limitations-(lack of equipment, weather restraints, etc.). 88-Not Attempted due to Medical Conditions or Safety Concerns. Roll Left to Right (QC): 6 Sit to Lying (QC): 6 Sit to Stand (QC): 4 Chair/Usm-ky-Ehpjx Xfer(QC): 4 Car Transfer (QC): 4 Gait Training Does the Patient Walk?: Yes Distance: 20'x3, 10' Walk 10 feet (QC): 4 Walk 50 ft with 2 Turns(QC): 88 Walk 150 ft (QC): 88 Walking 10ft/uneven surface-QC: 4 Gait Persons Needed: 1 Gait Assistive Device: FWW Wheelchair Training Does the Pt Use a Wheelchair?: Yes Wheel 50 ft with 2 turns (QC): 6 Wheel 150 ft (QC): 6 Type of Wheelchair: Manual Stair Training #of Steps: 1 1 Step (curb) (QC): 4 4 Steps (QC): 88 12 Steps (QC): 88 Balance Picking up an Object (QC): 4 (CGA using a church administrator) ADL-Treatment Eating (QC): 6 Oral Hygiene (QC): 5 Shower/Bathe Self (QC): 5 Upper Body Dressing (QC): 5 Lower Body Dressing (QC): 4 (SBA) On/Off Footwear (QC): 3 (Shirlene with R shoe, assist with straps of stump protec tor L) Toileting Hygiene (QC): 3 (Mod A donning/doffing R shoe) Assessment/Plan Assessment and Plan Assess & Plan/Chief Complaint Assessment: LBKA DM HTN HLP Obesity Anemia post op acute blood loss type Plan: Monitor closely Fall risk DM management Lovenox 08/07/2022: Monitor closely Pain control Minimize insulin 08/08/2022: Monitor sugar Hold Levemir 08/09/2022: Supportive care Monitor closely 08/10/2022: Monitor closely Hold Levemir (1) Status post below-knee amputation of left lower extremity Status: Acute (2) T2DM (type 2 diabetes mellitus) Status: Chronic (3) HLD (hyperlipidemia) Status: Chronic (4) Obesity Status: Chronic TYLER CONTRERAS DO Aug 10, 2022 06:57
[2022-08-10 09:34] VITALS: BP 134/74
[2022-08-10] MEDS: PREGABALIN 150 MG (LYRICA) CAPSULE PO SCH ×3 (09:38→21:20)
[2022-08-10] MEDS: PANTOPRAZOLE 20 MG TABLET (PROTONIX) PO SCH (09:38)
[2022-08-10] MEDS: OXYBUTYNIN (DITROPAN) 5 MG TAB PO SCH ×2 (09:38→21:20)
[2022-08-10] MEDS: meTOprolol TARTRATE 50 MG (LOPRESSOR) TAB PO SCH ×2 (09:38→21:20)
[2022-08-10] MEDS: ENOXAPARIN 40 MG/0.4 ML (LOVENOX) SYR SC SCH (09:39)
[2022-08-10] MEDS: DOCUSATE SODIUM 100 MG (COLACE) CAP PO SCH ×2 (09:47→21:23)
[2022-08-10] MEDS: SENNA W/DOCUSATE (SENOKOT S) TABLET PO SCH ×2 (09:47→21:23)
[2022-08-10] MEDS: polyethylene glycoL POWDER 17 GM (MIRALAX) PACK PO SCH ×2 (09:47→21:23)
[2022-08-10] MEDS: metFORMIN 500 MG (GLUCOPHAGE) TAB PO SCH ×2 (11:11→18:42)
--- NOTE | 2022-08-10 12:21 | Physical Therapy Daily Note ---
PT Daily Note-Current Subjective Pt found lying in bed upon entry /c son present. Agreed to PT. States that he is not having much pain right now. Describes some minor phantom pain /c exercise in LLE. Does not rate pain. Pain Section J - Health Conditions 1. Rarely or not at all 2. Occasionally 3. Frequently 4. Almost constantly 8. Unable to answer Pain Effect on Sleep: 3 Pain Interference with Therapy: 3 Pain Interference w/Day-to-Day: 3 Mental Status Patient Orientation: Normal For Age Transfers SCALE: Activities may be completed with or without assistive devices. 7-Egxkznfnwj-tkqpfuf completes the activity by him/herself with no assistance from a helper. 5-Set-up or Clean-up Assistance-helper sets up or cleans up; patient completes activity. [place] assists only prior to or following the activity. 4-Supervision or Touching Assistance-helper provides verbal cues and/or touching/steadying and/or contact guard assistance as patient completes act ivity. Assistance may be provided throughout the activity or intermittently. 3-Partial/Moderate Assistance-helper does LESS THAN HALF the effort. [place] lifts, holds or supports trunk or limbs, but provides less than half the effort. 2-Substantial/Maximal Assistance-helper does MORE THAN HALF the effort. [place] lifts or holds trunk or limbs and provides more than half the effort. 1-Usijpzqrn-zzrpet does ALL the effort. Patient does none of the effort to complete the activity. Or, the assistance of 2 or more helpers is required for the patient to complete the activity. If activity was not attempted, code reason: 7-Patient Refused. 9-Not Applicable-not attempted and the patient did not perform the activity before the current illness, exacerbation or injury. 10-Not Attempted due to Environmental Limitations-(lack of equipment, weather restraints, etc.). 88-Not Attempted due to Medical Conditions or Safety Concerns. Sit to Lying (QC): 6 Lying to Sitting/Side of Bed(Q: 6 Sit to Stand (QC): 4 Chair/Ptm-dt-Otgjr Xfer(QC): 4 Pt independent /c bed mobility. SBA /c sit<->stand and chair->bed trfs. Gait Training Does the Patient Walk?: Yes Distance: 10, 20, 20 Walk 10 feet (QC): 4 Gait Persons Needed: 1 Gait Assistive Device: FWW Pt CGA /c gait training. Amb. 50ft total. Wheelchair Training Does the Pt Use a Wheelchair?: Yes Wheel 50 ft with 2 turns (QC): 6 Type of Wheelchair: Manual Pt independent /c WC mobility. Exercises Seated Therapy Exercises: Long arc quads, Hip flexion Seated Reps: 15 Pt reports minor phantom pain /c exercise on LLE. Completed exercises bilaterally. Assessment Current Status: Good Progress Pt tolerated gait training and exercise well. Pt has occasional difficulty advancing RLE and drags it across floor when attempting to hop. Requires seated RB /c gait training. VCs given to keep patient on task. Continue to progress pt as tolerated to increase strength, endurance, and improve gait function. PT Short Term Goals Short Term Goals Time Frame: Aug 13, 2022 Sit to stand: 4 (SBA) Chair/bvl-cg-iaiec transfer: 4 (SBA) Walk 10 feet: 4 (SBA) PT [facility]ci Goals Fci Goals PT [facility]ci Goals Time Frame: Aug 20, 2022 Roll Left & Right (QC): 6 Sit to Lying (QC): 6 Lying-Sitting on Side/Bed(QC): 6 Sit to Stand (QC): 6 Chair/Ckq-qk-Ahski Xfer(QC): 6 Toilet Transfer (QC): 6 Car Transfer (QC): 6 Does the Patient Walk: Yes Walk 10 feet (QC): 6 Walk 50ft with 2 Turns (QC): 6 Walk 150 ft (QC): 88 Walking 10ft on Uneven Surface: 6 1 Step (curb) (QC): 4 (SBA) 4 Steps (QC): 88 12 Steps (QC): 88 Picking up an Object (QC): 4 (SBA using a crutcher helper) Wheel 50 feet with 2 turns (QC: 6 Wheel 150 feet: 6 PT Plan Treatment/Plan Treatment Plan: Continue Plan of Care Treatment Plan: Bed Mobility, Education, Functional Activity Han, Functional Strength, Group Therapy, Gait, Safety, Therapeutic Exercise, Transfers Treatment Duration: Aug 20, 2022 Frequency: At least 5 of 7 days/Wk (IRF) Estimated Hrs Per Day: 1.5 hours per day Patient and/or Family Agrees t: Yes Time Time In: 834 Time Out: 913 DATE: Aug 10, 2022 Total Billed Treatment Time: 39 Total Billed Treatment 1 visit GT 1x FA 1x EX 1x ANNY BAILEY ALIGNMENT TECHNICIAN Aug 10, 2022 12:21
[2022-08-10] MEDS: ASPIRIN E.C. 81 MG (ECOTRIN) TAB PO SCH (18:41)
[2022-08-10] MEDS: MULTIVIT W/MINERALS TAB (THERAGRAN M) PO SCH (18:42)
[2022-08-10 20:51] VITALS: BP 153/78
[2022-08-11] MEDS: inSUlin ASPART (NovoLOG) 1 UNIT/0.01 ML (CHARGE PER UNIT) SC SCH ×4 (06:48→21:00)
--- NOTE | 2022-08-11 08:07 | PM&R Progress Note ---
Subjective HPI/CC On Admission Date Seen by Provider: Aug 11, 2022 Time Seen by Provider: 12:00 Subjective/Events-last exam 08/11/2022: Patient doing well Flexeril caused some drowsiness but now he is doing well No pain is reported at this current time Blood sugar 151 08/10/2022: Doing well Sugars improved Doesn't perform a lot of ADL's it appears spouse takes care of all of that chronically 08/09/2022: Patient doing well Blood sugars much better by holding Levemir No hypoglycemia Participating in therapy 08/08/2022: No major issues Holding Levemir due to hypoglycemia Change in diet compared to home has really decreased his insulin requirements 08/07/2022: Patient doing well Participation in therapy is good Hypoglycemia noted this am Pain controlled Review of Systems General: Fatigue, Malaise Objective Exam Vital Signs Vital Signs Date Time Temp Pulse Resp B/P (MAP) Pulse Ox O2 Delivery O2 Flow Rate FiO2 08/11/22 08:19 36.6 88 20 140/78 (98) 96 Room Air Capillary Refill : General Appearance: No Apparent Distress, WD/WN, Chronically ill, Obese HEENT: PERRL/EOMI, Other Neck: Full Range of Motion, Normal Inspection, Non Tender, Supple Respiratory: Chest Non Tender, Lungs Clear, Normal Breath Sounds, No Accessory Muscle Use, No Respiratory Distress Cardiovascular: Regular Rate, Rhythm, No Edema, No Gallop, No JVD, No Murmur, Normal Peripheral Pulses Gastrointestinal: Normal Bowel Sounds, No Organomegaly, No Pulsatile Mass, Non Tender, Soft Back: Normal Inspection, No CVA Tenderness, No Vertebral Tenderness Extremity: Normal Capillary Refill, Normal Inspection, Normal Range of Motion, Non Tender, No Calf Tenderness, No Pedal Edema, Other (LBKA) Neurologic/Psychiatric: Alert, Oriented x3, Normal Mood/Affect Skin: Normal Color, Warm/Dry Lymphatic: No Adenopathy Results/Procedures Lab Patient resulted labs reviewed. FIM Transfers Therapy Code Descriptions/Definitions Functional [place] Measure: 0=Not Assessed/NA 4=Minimal Assistance 1=Total Assistance 5=Supervision or Setup 2=Maximal Assistance 6=Modified [place] 3=Moderate Assistance 7=Complete IndependenceSCALE: Activities may be completed with or without assistive devices. 0-Nbwqnpmwqs-bucmcdg completes the activity by him/herself with no assistance from a helper. 5-Set-up or Clean-up Assistance-helper sets up or cleans up; patient completes activity. [place] assists only prior to or following the activity. 4-Supervision or Touching Assistance-helper provides verbal cues and/or touching/steadying and/or contact guard assistance as patient completes activity. Assistance may be provided throughout the activity or intermittently. 3-Partial/Moderate Assistance-helper does LESS THAN HALF the effort. [place] lifts, holds or supports trunk or limbs, but provides less than half the effort. 2-Substantial/Maximal Assistance-helper does MORE THAN HALF the effort. [place] lifts or holds trunk or limbs and provides more than half the effort. 1-Zdpewsdqj-tozvbm does ALL the effort. Patient does none of the effort to complete the activity. Or, the assistance of 2 or more helpers is required for the patient to complete the activity. If activity was not attempted, code reason: 7-Patient Refused. 9-Not Applicable-not attempted and the patient did not perform the activity before the current illness, exacerbation or injury. 10-Not Attempted due to Environmental Limitations-(lack of equipment, weather restraints, etc.). 88-Not Attempted due to Medical Conditions or Safety Concerns. Roll Left to Right (QC): 6 Sit to Lying (QC): 6 Sit to Stand (QC): 4 Chair/Kfz-zn-Qbydd Xfer(QC): 4 Car Transfer (QC): 4 Gait Training Does the Patient Walk?: Yes Distance: 10, 20, 20 Walk 10 feet (QC): 4 Walk 50 ft with 2 Turns(QC): 88 Walk 150 ft (QC): 88 Walking 10ft/uneven surface-QC: 4 Gait Persons Needed: 1 Gait Assistive Device: FWW Wheelchair Training Does the Pt Use a Wheelchair?: Yes Wheel 50 ft with 2 turns (QC): 6 Wheel 150 ft (QC): 6 Type of Wheelchair: Manual Stair Training #of Steps: 1 1 Step (curb) (QC): 4 4 Steps (QC): 88 12 Steps (QC): 88 Balance Picking up an Object (QC): 4 (CGA using a hair assistant) ADL-Treatment Eating (QC): 6 Oral Hygiene (QC): 5 Shower/Bathe Self (QC): 5 Upper Body Dressing (QC): 5 Lower Body Dressing (QC): 4 (SBA) On/Off Footwear (QC): 3 (Shirlene with R shoe, assist with straps of stump protector L) Toileting Hygiene (QC): 3 (Mod A donning/doffing R shoe) Assessment/Plan Assessment and Plan Assess & Plan/Chief Complaint Assessment: LBKA DM HTN HLP Obesity Anemia post op acute blood loss type Plan: Monitor closely Fall risk DM management Lovenox 08/07/2022: Monitor closely Pain control Minimize insulin 08/08/2022: Monitor sugar Hold Levemir 08/09/2022: Supportive care Monitor closely 08/10/2022: Monitor closely Hold Levemir 08/11/2022: Supportive care Monitor closely (1) Status post below-knee amputation of left lower extremity Status: Acute (2) T2DM (type 2 diabetes mellitus) Status: Chronic (3) HLD (hyperlipidemia) Status: Chronic (4) Obesity Status: Chronic TYLER CONTRERAS DO Aug 11, 2022 08:07
[2022-08-11 08:19] VITALS: BP 140/78
[2022-08-11] MEDS: metFORMIN 500 MG (GLUCOPHAGE) TAB PO SCH ×2 (08:23→17:21)
[2022-08-11] MEDS: polyethylene glycoL POWDER 17 GM (MIRALAX) PACK PO SCH ×2 (08:23→23:39)
[2022-08-11] MEDS: PANTOPRAZOLE 20 MG TABLET (PROTONIX) PO SCH (08:23)
[2022-08-11] MEDS: meTOprolol TARTRATE 50 MG (LOPRESSOR) TAB PO SCH ×2 (08:23→23:31)
[2022-08-11] MEDS: OXYBUTYNIN (DITROPAN) 5 MG TAB PO SCH ×2 (08:23→23:34)
[2022-08-11] MEDS: PREGABALIN 150 MG (LYRICA) CAPSULE PO SCH ×3 (08:23→23:35)
[2022-08-11] MEDS: ENOXAPARIN 40 MG/0.4 ML (LOVENOX) SYR SC SCH (08:24)
[2022-08-11] MEDS: CYCLOBENZAPRINE 10 MG (FLEXERIL) TAB PO PRN ×2 (08:26→23:33)
[2022-08-11] MEDS: DOCUSATE SODIUM 100 MG (COLACE) CAP PO SCH ×2 (10:25→23:33)
[2022-08-11] MEDS: SENNA W/DOCUSATE (SENOKOT S) TABLET PO SCH ×2 (10:25→23:33)
[2022-08-11] MEDS: ASPIRIN E.C. 81 MG (ECOTRIN) TAB PO SCH (17:21)
[2022-08-11] MEDS: MULTIVIT W/MINERALS TAB (THERAGRAN M) PO SCH (17:21)
[2022-08-11 20:00] VITALS: BP 140/78
[2022-08-11 23:41] VITALS: BP 158/81
--- NOTE | 2022-08-12 04:45 | PM&R Progress Note ---
Subjective HPI/CC On Admission Date Seen by Provider: Aug 12, 2022 Time Seen by Provider: 08:30 Subjective/Events-last exam 08/12/2022: Improved overall Sugars improved No hypoglycemia Labs stable 08/11/2022: Patient doing well Flexeril caused some drowsiness but now he is doing well No pain is reported at this current time Blood sugar 151 08/10/2022: Doing well Sugars improved Doesn't perform a lot of ADL's it appears spouse takes care of all of that chronically 08/09/2022: Patient doing well Blood sugars much better by holding Levemir No hypoglycemia Participating in therapy 08/08/2022: No major issues Holding Levemir due to hypoglycemia Change in diet compared to home has really decreased his insulin requirements 08/07/2022: Patient doing well Participation in therapy is good Hypoglycemia noted this am Pain controlled Review of Systems General: Fatigue, Malaise Objective Exam Vital Signs Vital Signs Date Time Temp Pulse Resp B/P (MAP) Pulse Ox O2 Delivery O2 Flow Rate FiO2 08/12/22 21:00 Room Air 08/12/22 19:37 35.9 100 20 115/83 (94) 96 Capillary Refill : General Appearance: No Apparent Distress, WD/WN, Chronically ill, Obese HEENT: PERRL/EOMI, Other Neck: Full Range of Motion, Normal Inspection, Non Tender, Supple Respiratory: Chest Non Tender, Lungs Clear, Normal Breath Sounds, No Accessory Muscle Use, No Respiratory Distress Cardiovascular: Regular Rate, Rhythm, No Edema, No Gallop, No JVD, No Murmur, Normal Peripheral Pulses Gastrointestinal: Normal Bowel Sounds, No Organomegaly, No Pulsatile Mass, Non Tender, Soft Back: Normal Inspection, No CVA Tenderness, No Vertebral Tenderness Extremity: Normal Capillary Refill, Normal Inspection, Normal Range of Motion, Non Tender, No Calf Tenderness, No Pedal Edema, Other (LBKA) Neurologic/Psychiatric: Alert, Oriented x3, Normal Mood/Affect Skin: Normal Color, Warm/Dry Lymphatic: No Adenopathy Results/Procedures Lab Laboratory Tests 08/12/22 05:10 Patient resulted labs reviewed. FIM Transfers Therapy Code Descriptions/Definitions Functional [place] Measure: 0=Not Assessed/NA 4=Minimal Assistance 1=Total Assistance 5=Supervision or Setup 2=Maximal Assistance 6=Modified [place] 3=Moderate Assistance 7=Complete IndependenceSCALE: Activities may be completed with or without assistive devices. 5-Jektsnadxd-ufmoaci completes the activity by him/herself with no assistance from a helper. 5-Set-up or Clean-up Assistance-helper sets up or cleans up; patient completes activity. [place] assists only prior to or following the activity. 4-Supervision or Touching Assistance-helper provides verbal cues and/or touching/steadying and/or contact guard assistance as patient completes activity. Assistance may be provided throughout the activity or intermittently. 3-Partial/Moderate Assistance-helper does LESS THAN HALF the effort. [place] lifts, holds or supports trunk or limbs, but provides less than half the effort. 2-Substantial/Maximal Assistance-helper does MORE THAN HALF the effort. [place] lifts or holds trunk or limbs and provides more than half the effort. 0-Qrzofoccl-etseth does ALL the effort. Patient does none of the effort to complete the activity. Or, the assistance of 2 or more helpers is required for the patient to complete the activity. If activity was not attempted, code reason: 7-Patient Refused. 9-Not Applicable-not attempted and the patient did not perform the activity before the current illness, exacerbation or injury. 10-Not Attempted due to Environmental Limitations-(lack of equipment, weather restraints, etc.). 88-Not Attempted due to Medical Conditions or Safety Concerns. Roll Left to Right (QC): 6 Sit to Lying (QC): 6 Sit to Stand (QC): 4 Chair/Ibx-pk-Oxrrk Xfer(QC): 4 Car Transfer (QC): 4 Gait Training Does the Patient Walk?: Yes Distance: 10, 20, 20 Walk 10 feet (QC): 4 Walk 50 ft with 2 Turns(QC): 88 Walk 150 ft (QC): 88 Walking 10ft/uneven surface-QC: 4 Gait Persons Needed: 1 Gait Assistive Device: FWW Wheelchair Training Does the Pt Use a Wheelchair?: Yes Wheel 50 ft with 2 turns (QC): 6 Wheel 150 ft (QC): 6 Type of Wheelchair: Manual Stair Training #of Steps: 1 1 Step (curb) (QC): 4 4 Steps (QC): 88 12 Steps (QC): 88 Balance Picking up an Object (QC): 4 (CGA using a prop and effects designer) ADL-Treatment Eating (QC): 6 Oral Hygiene (QC): 5 Shower/Bathe Self (QC): 5 Upper Body Dressing (QC): 5 Lower Body Dressing (QC): 4 (SBA) On/Off Footwear (QC): 3 (Shirlene with R shoe, assist with straps of stump protector L) Toileting Hygiene (QC): 3 (Mod A donning/doffing R shoe) Assessment/Plan Assessment and Plan Assess & Plan/Chief Complaint Assessment: LBKA DM HTN HLP Obesity Anemia post op acute blood loss type Plan: Monitor closely Fall risk DM management Lovenox 08/07/2022: Monitor closely Pain control Minimize insulin 08/08/2022: Monitor sugar Hold Levemir 08/09/2022: Supportive care Monitor closely 08/10/2022: Monitor closely Hold Levemir 08/11/2022: Supportive care Monitor closely 08/12/2022: Monitor closely Supportive care (1) Status post below-knee amputation of left lower extremity Status: Acute (2) T2DM (type 2 diabetes mellitus) Status: Chronic (3) HLD (hyperlipidemia) Status: Chronic (4) Obesity Status: Chronic TYLER CONTRERAS DO Aug 12, 2022 04:45
[2022-08-12 05:35] LABS: BASOPHILS # (AUTO) 0.2 10^3/uL (0.0-0.1); BASOPHILS % (AUTO) 1 % (0-10); EOSINOPHILS # (AUTO) 0.6 10^3/uL (0.0-0.3); EOSINOPHILS % (AUTO) 4 % (0-10); HEMATOCRIT 39 % (40-54); LYMPHOCYTES # (AUTO) 2.7 10^3/uL (1.0-4.0); LYMPHOCYTES % (AUTO) 20 % (12-44); MEAN CORPUSCULAR HEMOGLOBIN 30 pg (25-34); MEAN CORPUSCULAR HGB CONC 34 g/dL (32-36); MEAN CORPUSCULAR VOLUME 90 fL (80-99); MEAN PLATELET VOLUME 9.8 fL (9.0-12.2); MONOCYTES # (AUTO) 0.8 10^3/uL (0.0-1.0); MONOCYTES % (AUTO) 6 % (0-12); NEUTROPHILS # (AUTO) 9.4 10^3/uL (1.8-7.8); NEUTROPHILS % (AUTO) 68 % (42-75); PLATELET COUNT 382 10^3/uL (130-400); WHITE BLOOD COUNT 13.7 10^3/uL (4.3-11.0)
[2022-08-12 05:56] LABS: ALBUMIN 3.5 GM/DL (3.2-4.5); BILIRUBIN,TOTAL 0.4 MG/DL (0.1-1.0); CALCIUM 9.4 MG/DL (8.5-10.1); CREATININE SERUM 1.04 MG/DL (0.60-1.30); POTASSIUM 3.9 MMOL/L (3.6-5.0); TOTAL PROTEIN 7.2 GM/DL (6.4-8.2)
[2022-08-12] MEDS: inSUlin ASPART (NovoLOG) 1 UNIT/0.01 ML (CHARGE PER UNIT) SC SCH ×4 (06:00→22:11)
[2022-08-12 07:44] VITALS: BP 143/90
[2022-08-12] MEDS: meTOprolol TARTRATE 50 MG (LOPRESSOR) TAB PO SCH ×2 (08:09→20:56)
[2022-08-12] MEDS: PANTOPRAZOLE 20 MG TABLET (PROTONIX) PO SCH (08:09)
[2022-08-12] MEDS: metFORMIN 500 MG (GLUCOPHAGE) TAB PO SCH ×2 (08:09→17:20)
[2022-08-12] MEDS: PREGABALIN 150 MG (LYRICA) CAPSULE PO SCH ×3 (08:09→20:56)
[2022-08-12] MEDS: OXYBUTYNIN (DITROPAN) 5 MG TAB PO SCH ×2 (08:09→20:56)
[2022-08-12] MEDS: ENOXAPARIN 40 MG/0.4 ML (LOVENOX) SYR SC SCH (08:10)
[2022-08-12] MEDS: polyethylene glycoL POWDER 17 GM (MIRALAX) PACK PO SCH ×2 (08:11→20:59)
[2022-08-12] MEDS: DOCUSATE SODIUM 100 MG (COLACE) CAP PO SCH ×2 (08:11→20:59)
[2022-08-12] MEDS: SENNA W/DOCUSATE (SENOKOT S) TABLET PO SCH ×2 (08:12→20:57)
--- NOTE | 2022-08-12 10:02 | Occupational Ther Daily Note ---
OT Current Status-Daily Note Subjective Pt up in w/c, agreeable to OT Tx. Pt easily distracted throughout tx, telling various stories about his life. Pt required redirection to task. Mental Status/Objective Patient Orientation: Normal For Age ADL-Treatment Therapy Code Descriptions/Definitions Functional [place] Measure: 0=Not Assessed/NA 4=Minimal Assistance 1=Total Assistance 5=Supervision or Setup 2=Maximal Assistance 6=Modified [place] 3=Moderate Assistance 7=Complete IndependenceSCALE: Activities may be completed with or without assistive devices. 5-Ypdixkeevf-bbwgqll completes the activity by him/herself with no assistance from a helper. 5-Set-up or Clean-up Assistance-helper sets up or cleans up; patient completes activity. [place] assists only prior to or following the activity. 4-Supervision or Touching Assistance-helper provides verbal cues and/or touching/steadying and/or contact guard assistance as patient completes activity. Assistance may be provided throughout the activity or intermittently. 3-Partial/Moderate Assistance-helper does LESS THAN HALF the effort. [place] lifts, holds or supports trunk or limbs, but provides less than half the effort. 2-Substantial/Maximal Assistance-helper does MORE THAN HALF the effort. [place] lifts or holds trunk or limbs and provides more than half the effort. 9-Apxhucwqp-galjic does ALL the effort. Patient does none of the effort to complete the activity. Or, the assistance of 2 or more helpers is required for the patient to complete the activity. If activity was not attempted, code reason: 7-Patient Refused. 9-Not Applicable-not attempted and the patient did not perform the activity before the current illness, exacerbation or injury. 10-Not Attempted due to Environmental Limitations-(lack of equipment, weather restraints, etc.). 88-Not Attempted due to Medical Conditions or Safety Concerns. Other Treatment Pt up in w/c, agreeable to OT Tx. Pt declines showering and ADLs on this date. Pt propelled w/c to therapy gym, independently. OT tx focused on increasing BUE strength and activity tolerance. Pt completed x20 mins on arm bike, 20-25 Watt resistance, no rest break. Pt removed beads from moderate resistance (green) t heraputty to increase fine motor strength. Pt demo'd ability to don stump protector, mod A overall. Pt propelled w/c back to his room. Post tx, pt up in w/c, call light in reach and all needs met. Education OT Patient Education: Correct positioning, Energy conservation, Modified ADL techniques, Progress toward Goal/Update tx plan, Purpose of tx/functional activities, Rehab process Teaching Recipient: Patient Teaching Methods: Discussion Response to Teaching: Verbalize Understanding OT Short Term Goals Short Term Goals Time Frame: Aug 16, 2022 Toileting hygiene: 4 Shower/bathe self: 4 Lower body dressin Putting on/taking off footwear: 5 OT Sales And Service Representative Goals Half-Way Goals Time Frame: Aug 30, 2022 Acute change in mental status: 0 Inattention: 0 Disorganized thinkin Altered level of consciousness: 0 Eating (QC): 6 Oral Hygiene (QC): 6 Toileting Hygiene (QC): 6 Shower/Bathe Self (QC): 5 Upper Body Dressing (QC): 6 Lower Body Dressing (QC): 6 On/Off Footwear (QC): 6 Additional Goals: 1-Demonstrate ADL Tasks, 2-Verbalize Understanding, 3- ImproveStrength/Han 1=Demonstrate adherence to instructed precautions during ADL tasks. 2=Patient will verbalize/demonstrate understanding of assistive devices/modifications for ADL. 3=Patient will improve strength/tolerance for activity to enable patient to perform ADL's. OT Education/Plan Problem List/Assessment Assessment: Decreased Activ Tolerance, Decreased UE Strength, Impaired Funct Balance, Impaired I ADL's Discharge Recommendations Plan/Recommendations: Continue POC Treatment Plan/Plan of Care Patient would benefit from OT for education, treatment and training to promote independence in ADL's, mobility, safety and/or upper extremity function for ADL's. Plan of Care: ADL Retraining, Functional Mobility, Group Exercise/Act as Ind, UE Funct Exercise/Act Treatment Duration: Aug 30, 2022 Frequency: At least 5 of 7 days/Wk (IRF) Estimated Hrs Per Day: 1.5 hours per day Agreement: Yes Rehab Potential: Fair Time Start Time: 09:00 Stop Time: 10:00 DATE: Aug 12, 2022 Total Time Billed (hr/min): 60 Billed Treatment Time 1, EX (20'), ADL (10'), FA 2 (30') KARAN GONSALES OT Aug 12, 2022 10:02
--- NOTE | 2022-08-12 12:58 | Physical Therapy Daily Note ---
PT Daily Note-Current Subjective Pt found seated in recliner upon entry. Agreed to PT. States that he is not having any pain pre-Tx. Reports 2/10 pain post Tx but does not describe. Pt left in room on WC post-Tx. Pain Section J - Health Conditions 1. Rarely or not at all 2. Occasionally 3. Frequently 4. Almost constantly 8. Unable to answer Pain Effect on Sleep: 3 Pain Interference with Therapy: 3 Pain Interference w/Day-to-Day: 3 Mental Status Patient Orientation: Normal For Age Transfers SCALE: Activities may be completed with or without assistive devices. 6-Xjlyjntvhd-kafhxhr completes the activity by him/herself with no assistance from a helper. 5-Set-up or Clean-up Assistance-helper sets up or cleans up; patient completes activity. [place] assists only prior to or following the activity. 4-Supervision or Touching Assistance-helper provides verbal cues and/or touching/steadying and/or contact guard assistance as patient completes activity. Assistance may be provided throughout the activity or intermittently. 3-Partial/Moderate Assistance-helper does LESS THAN HALF the effort. [place] lifts, holds or supports trunk or limbs, but provides less than half the effort. 2-Substantial/Maximal Assistance-helper does MORE THAN HALF the effort. [place] lifts or holds trunk or limbs and provides more than half the effort. 7-Duwvugtwj-htakbo does ALL the effort. Patient does none of the effort to complete the activity. Or, the assistance of 2 or more helpers is required for the patient to complete the activity. If activity was not attempted, code reason: 7-Patient Refused. 9-Not Applicable-not attempted and the patient did not perform the activity before the current illness, exacerbation or injury. 10-Not Attempted due to Environmental Limitations-(lack of equipment, weather restraints, etc.). 88-Not Attempted due to Medical Conditions or Safety Concerns. Sit to Lying (QC): 6 Lying to Sitting/Side of Bed(Q: 6 Sit to Stand (QC): 4 Pt SBA /c sit<->stand trfs. Independent /c bed mobility. Gait Training Does the Patient Walk?: Yes Distance: 20 4x Walk 10 feet (QC): 4 Gait Persons Needed: 1 Gait Assistive Device: FWW Pt CGA /c FWW. Amb. 80ft total. Wheelchair Training Does the Pt Use a Wheelchair?: Yes Wheel 50 ft with 2 turns (QC): 6 Type of Wheelchair: Manual Pt independent /c WC mobility. Exercises Supine Ex: Short Arc Quads, Straight leg raise, Hip abd/add Supine Reps: 15 Seated Therapy Exercises: Long arc quads Seated Reps: 15 Hip abd/add in R side-lying. Assessment Current Status: Good Progress Pt displayed improved gait balance and pace this visit. Pt occasionally has difficulty /c advancing RLE and drags toe across floor which is more evident /c fatigue. Continue to progress pt as tolerated per POC to improve strength, endurance, and functional ability. PT Short Term Goals Short Term Goals Time Frame: Aug 13, 2022 Sit to stand: 4 (SBA) Chair/yvx-yv-fusbe transfer: 4 (SBA) Walk 10 feet: 4 (SBA) PT Shelter Goals Marine Geologist Goals PT Marine Geologist Goals Time Frame: Aug 20, 2022 Roll Left & Right (QC): 6 Sit to Lying (QC): 6 Lying-Sitting on Side/Bed(QC): 6 Sit to Stand (QC): 6 Chair/Uei-xb-Qynjx Xfer(QC): 6 Toilet Transfer (QC): 6 Car Transfer (QC): 6 Does the Patient Walk: Yes Walk 10 feet (QC): 6 Walk 50ft with 2 Turns (QC): 6 Walk 150 ft (QC): 88 Walking 10ft on Uneven Surface: 6 1 Step (curb) (QC): 4 (SBA) 4 Steps (QC): 88 12 Steps (QC): 88 Picking up an Object (QC): 4 (SBA using a java websphere developer) Wheel 50 feet with 2 turns (QC: 6 Wheel 150 feet: 6 PT Plan Treatment/Plan Treatment Plan: Continue Plan of Care Treatment Plan: Bed Mobility, Education, Functional Activity Han, Functional Strength, Group Therapy, Gait, Safety, Therapeutic Exercise, Transfers Treatment Duration: Aug 20, 2022 Frequency: At least 5 of 7 days/Wk (IRF) Estimated Hrs Per Day: 1.5 hours per day Patient and/or Family Agrees t: Yes Time Time In: 0800 Time Out: 0900 DATE: Aug 12, 2022 Total Billed Treatment Time: 60 Total Billed Treatment 1 visit GT 2x EX 2x ANNY BAILEY LIBRARY CLERK Aug 12, 2022 12:58
--- NOTE | 2022-08-12 13:14 | Occupational Ther Daily Note ---
OT Current Status-Daily Note Subjective Pt up in w/c, agreeable to OT Tx. Mental Status/Objective Patient Orientation: Normal For Age ADL-Treatment Therapy Code Descriptions/Definitions Functional [place] Measure: 0=Not Assessed/NA 4=Minimal Assistance 1=Total Assistance 5=Supervision or Setup 2=Maximal Assistance 6=Modified [place] 3=Moderate Assistance 7=Complete IndependenceSCALE: Activities may be completed with or without assistive devices. 6-Xlijskurdw-djtkhhu completes the activity by him/herself with no assistance from a helper. 5-Set-up or Clean-up Assistance-helper sets up or cleans up; patient completes activity. [place] assists only prior to or following the activity. 4-Supervision or Touching Assistance-helper provides verbal cues and/or touching/steadying and/or contact guard assistance as patient completes activity. Assistance may be provided throughout the activity or intermittently. 3-Partial/Moderate Assistance-helper does LESS THAN HALF the effort. [place] lifts, holds or supports trunk or limbs, but provides less than half the effort. 2-Substantial/Maximal Assistance-helper does MORE THAN HALF the effort. [place] lifts or holds trunk or limbs and provides more than half the effort. 4-Qhgstcoaj-jghidt does ALL the effort. Patient does none of the effort to complete the activity. Or, the assistance of 2 or more helpers is required for the patient to complete the activity. If activity was not attempted, code reason: 7-Patient Refused. 9-Not Applicable-not attempted and the patient did not perform the activity before the current illness, exacerbation or injury. 10-Not Attempted due to Environmental Limitations-(lack of equipment, weather restraints, etc.). 88-Not Attempted due to Medical Conditions or Safety Concerns. Other Treatment Pt up in w/c, agreeable to OT Tx. Pt propelled w/c to therapy gym, independently. In order to increase BUE Strength and activity tolerance, pt completed BUE reaching task, 2lb wrist weights BUEs. Pt completed nut/bolt block, placing/removing x16 nuts/bolts. Pt propelled w/c back to his room, [place] sferring to bed, SBA. Post tx, pt in bed, call light in reach and all needs met. OT Short Term Goals Short Term Goals Time Frame: Aug 16, 2022 Toileting hygiene: 4 Shower/bathe self: 4 Lower body dressin Putting on/taking off footwear: 5 OT Nursing Home Goals Calender Tender Goals Time Frame: Aug 30, 2022 Acute change in mental status: 0 Inattention: 0 Disorganized thinkin Altered level of consciousness: 0 Eating (QC): 6 Oral Hygiene (QC): 6 Toileting Hygiene (QC): 6 Shower/Bathe Self (QC): 5 Upper Body Dressing (QC): 6 Lower Body Dressing (QC): 6 On/Off Footwear (QC): 6 Additional Goals: 1-Demonstrate ADL Tasks, 2-Verbalize Understanding, 3- ImproveStrength/Han 1=Demonstrate adherence to instructed precautions during ADL tasks. 2=Patient will verbalize/demonstrate understanding of assistive devices/modifications for ADL. 3=Patient will improve strength/tolerance for activity to enable patient to perform ADL's. OT Education/Plan Problem List/Assessment Assessment: Decreased Activ Tolerance, Decreased UE Strength, Impaired I ADL's, Impaired Self-Care Skills Discharge Recommendations Plan/Recommendations: Continue POC Treatment Plan/Plan of Care Patient would benefit from OT for education, treatment and training to promote independence in ADL's, mobility, safety and/or upper extremity function for ADL's. Plan of Care: ADL Retraining, Functional Mobility, Group Exercise/Act as Ind, UE Funct Exercise/Act Treatment Duration: Aug 30, 2022 Frequency: At least 5 of 7 days/Wk (IRF) Estimated Hrs Per Day: 1.5 hours per day Agreement: Yes Rehab Potential: Fair Time Start Time: 13:00 Stop Time: 13:30 DATE: Aug 12, 2022 Total Time Billed (hr/min): 30 Billed Treatment Time 1, FA 2 KARAN GONSALES OT Aug 12, 2022 13:14
--- NOTE | 2022-08-12 14:15 | Physical Therapy Daily Note ---
PT Daily Note-Current Subjective Pt found in WC upon entry. Agreed to PT. Reports that he is not having any pain but is a little more fatigued since last visit. Pain Section J - Health Conditions 1. Rarely or not at all 2. Occasionally 3. Frequently 4. Almost constantly 8. Unable to answer Pain Effect on Sleep: 3 Pain Interference with Therapy: 3 Pain Interference w/Day-to-Day: 3 Mental Status Patient Orientation: Normal For Age Transfers SCALE: Activities may be completed with or without assistive devices. 5-Noustmnvoh-vnzmjgd completes the activity by him/herself with no assistance from a helper. 5-Set-up or Clean-up Assistance-helper sets up or cleans up; patient completes activity. [place] assists only prior to or following the activity. 4-Supervision or Touching Assistance-helper provides verbal cues and/or touchi ng/steadying and/or contact guard assistance as patient completes activity. Assistance may be provided throughout the activity or intermittently. 3-Partial/Moderate Assistance-helper does LESS THAN HALF the effort. [place] lifts, holds or supports trunk or limbs, but provides less than half the effort. 2-Substantial/Maximal Assistance-helper does MORE THAN HALF the effort. [place] lifts or holds trunk or limbs and provides more than half the effort. 4-Xhenyjspy-sahkvx does ALL the effort. Patient does none of the effort to complete the activity. Or, the assistance of 2 or more helpers is required for the patient to complete the activity. If activity was not attempted, code reason: 7-Patient Refused. 9-Not Applicable-not attempted and the patient did not perform the activity before the current illness, exacerbation or injury. 10-Not Attempted due to Environmental Limitations-(lack of equipment, weather restraints, etc.). 88-Not Attempted due to Medical Conditions or Safety Concerns. Sit to Stand (QC): 4 Pt SBA /c sit<->stand trfs. Gait Training Distance: 20 4x Walk 10 feet (QC): 4 Gait Persons Needed: 1 Gait Assistive Device: FWW Pt CGA /c gait training. Amb. 80ft total. Wheelchair Training Does the Pt Use a Wheelchair?: Yes Wheel 50 ft with 2 turns (QC): 6 Type of Wheelchair: Manual Pt independent /c mobility. Exercises Standin way Ex=Flex, Abd, Ext Standing Reps: 10 Assessment Current Status: Good Progress Pt able to complete gait training /c no demonstration of LOB. Able to self- correct when advancing RLE too far and is able to slow down gait cycle to amb. at steady pace. Demonstrated signs of fatigue while performing standing ther-x. Continue to progress pt as tolerated per POC to increase strength, endurance, and functional ability. PT Short Term Goals Short Term Goals Time Frame: Aug 13, 2022 Sit to stand: 4 (SBA) Chair/qdq-aw-fxjkd transfer: 4 (SBA) Walk 10 feet: 4 (SBA) PT Log Hooker Goals Mcfp Goals PT Log Hooker Goals Time Frame: Aug 20, 2022 Roll Left & Right (QC): 6 Sit to Lying (QC): 6 Lying-Sitting on Side/Bed(QC): 6 Sit to Stand (QC): 6 Chair/Ujp-je-Nlgmr Xfer(QC): 6 Toilet Transfer (QC): 6 Car Transfer (QC): 6 Does the Patient Walk: Yes Walk 10 feet (QC): 6 Walk 50ft with 2 Turns (QC): 6 Walk 150 ft (QC): 88 Walking 10ft on Uneven Surface: 6 1 Step (curb) (QC): 4 (SBA) 4 Steps (QC): 88 12 Steps (QC): 88 Picking up an Object (QC): 4 (SBA using a environmental services aide) Wheel 50 feet with 2 turns (QC: 6 Wheel 150 feet: 6 PT Plan Treatment/Plan Treatment Plan: Continue Plan of Care Treatment Plan: Bed Mobility, Education, Functional Activity Han, Functional Strength, Group Therapy, Gait, Safety, Therapeutic Exercise, Transfers Treatment Duration: Aug 20, 2022 Frequency: At least 5 of 7 days/Wk (IRF) Estimated Hrs Per Day: 1.5 hours per day Patient and/or Family Agrees t: Yes Time Time In: 1000 Time Out: 1030 DATE: Aug 12, 2022 Total Billed Treatment Time: 30 Total Billed Treatment 1 visit GT 1x EX 1x ANNY BAILEY VALVE MECHANIC Aug 12, 2022 14:14
[2022-08-12] MEDS: ASPIRIN E.C. 81 MG (ECOTRIN) TAB PO SCH (17:19)
[2022-08-12] MEDS: MULTIVIT W/MINERALS TAB (THERAGRAN M) PO SCH (17:19)
[2022-08-12 19:37] VITALS: BP 115/83
[2022-08-13] MEDS: inSUlin ASPART (NovoLOG) 1 UNIT/0.01 ML (CHARGE PER UNIT) SC SCH ×4 (06:01→21:30)
--- NOTE | 2022-08-13 06:59 | PM&R Progress Note ---
Subjective HPI/CC On Admission Date Seen by Provider: Aug 13, 2022 Time Seen by Provider: 08:30 Subjective/Events-last exam 08/13/2022: Doing well DC planned for tomorrow Sugars improved 08/12/2022: Improved overall Sugars improved No hypoglycemia Labs stable 08/11/2022: Patient doing well Flexeril caused some drowsiness but now he is doing well No pain is reported at this current time Blood sugar 151 08/10/2022: Doing well Sugars improved Doesn't perform a lot of ADL's it appears spouse takes care of all of that chronically 08/09/2022: Patient doing well Blood sugars much better by holding Levemir No hypoglycemia Participating in therapy 08/08/2022: No major issues Holding Levemir due to hypoglycemia Change in diet compared to home has really decreased his insulin requirements 08/07/2022: Patient doing well Participation in therapy is good Hypoglycemia noted this am Pain controlled Review of Systems General: Fatigue, Malaise Objective Exam Vital Signs Vital Signs Date Time Temp Pulse Resp B/P (MAP) Pulse Ox O2 Delivery O2 Flow Rate FiO2 08/13/22 21:30 95 Room Air 08/13/22 19:37 82 20 123/74 (90) 08/13/22 07:53 36.1 Capillary Refill : General Appearance: No Apparent Distress, WD/WN, Chronically ill, Obese HEENT: PERRL/EOMI, Other Neck: Full Range of Motion, Normal Inspection, Non Tender, Supple Respiratory: Chest Non Tender, Lungs Clear, Normal Breath Sounds, No Accessory Muscle Use, No Respiratory Distress Cardiovascular: Regular Rate, Rhythm, No Edema, No Gallop, No JVD, No Murmur, Normal Peripheral Pulses Gastrointestinal: Normal Bowel Sounds, No Organomegaly, No Pulsatile Mass, Non Tender, Soft Back: Normal Inspection, No CVA Tenderness, No Vertebral Tenderness Extremity: Normal Capillary Refill, Normal Inspection, Normal Range of Motion, Non Tender, No Calf Tenderness, No Pedal Edema, Other (LBKA) Neurologic/Psychiatric: Alert, Oriented x3, Normal Mood/Affect Skin: Normal Color, Warm/Dry Lymphatic: No Adenopathy Results/Procedures Lab Patient resulted labs reviewed. FIM Transfers Therapy Code Descriptions/Definitions Functional [place] Measure: 0=Not Assessed/NA 4=Minimal Assistance 1=Total Assistance 5=Supervision or Setup 2=Maximal Assistance 6=Modified [place] 3=Moderate Assistance 7=Complete IndependenceSCALE: Activities may be completed with or without assistive devices. 5-Spgkirisff-yirjzov completes the activity by him/herself with no assistance from a helper. 5-Set-up or Clean-up Assistance-helper sets up or cleans up; patient completes activity. [place] assists only prior to or following the activity. 4-Supervision or Touching Assistance-helper provides verbal cues and/or touching/steadying and/or contact guard assistance as patient completes activity. Assistance may be provided throughout the activity or intermittently. 3-Partial/Moderate Assistance-helper does LESS THAN HALF the effort. [place] lifts, holds or supports trunk or limbs, but provides less than half the effort. 2-Substantial/Maximal Assistance-helper does MORE THAN HALF the effort. [place] lifts or holds trunk or limbs and provides more than half the effort. 0-Rualqchxz-ypdbtk does ALL the effort. Patient does none of the effort to complete the activity. Or, the assistance of 2 or more helpers is required for the patient to complete the activity. If activity was not attempted, code reason: 7-Patient Refused. 9-Not Applicable-not attempted and the patient did not perform the activity before the current illness, exacerbation or injury. 10-Not Attempted due to Environmental Limitations-(lack of equipment, weather restraints, etc.). 88-Not Attempted due to Medical Conditions or Safety Concerns. Roll Left to Right (QC): 6 Sit to Lying (QC): 6 Sit to Stand (QC): 4 Chair/Axo-du-[place] Xfer(QC): 4 Car Transfer (QC): 4 Gait Training Does the Patient Walk?: Yes Distance: 20 4x Walk 10 feet (QC): 4 Walk 50 ft with 2 Turns(QC): 88 Walk 150 ft (QC): 88 Walking 10ft/uneven surface-QC: 4 Gait Persons Needed: 1 Gait Assistive Device: FWW Wheelchair Training Does the Pt Use a Wheelchair?: Yes Wheel 50 ft with 2 turns (QC): 6 Wheel 150 ft (QC): 6 Type of Wheelchair: Manual Stair Training #of Steps: 1 1 Step (curb) (QC): 4 4 Steps (QC): 88 12 Steps (QC): 88 Balance Picking up an Object (QC): 4 (CGA using a mica parts sprayer) ADL-Treatment Eating (QC): 6 Oral Hygiene (QC): 5 Shower/Bathe Self (QC): 5 Upper Body Dressing (QC): 5 Lower Body Dressing (QC): 4 (SBA) On/Off Footwear (QC): 3 ([place]irlene with R shoe, assist with straps of stump protector L) Toileting Hygiene (QC): 3 (Mod A donning/doffing R shoe) Assessment/Plan Assessment and Plan Assess & Plan/Chief Complaint Assessment: LBKA DM HTN HLP Obesity Anemia post op acute blood loss type Plan: Monitor closely Fall risk DM management Lovenox 08/07/2022: Monitor closely Pain control Minimize insulin 08/08/2022: Monitor sugar Hold Levemir 08/09/2022: Supportive care Monitor closely 08/10/2022: Monitor closely Hold Levemir 08/11/2022: Supportive care Monitor closely 08/12/2022: Monitor closely Supportive care 08/13/2022: DC tomorrow (1) Status post below-knee amputation of left lower extremity Status: Acute (2) T2DM (type 2 diabetes mellitus) Status: Chronic (3) HLD (hyperlipidemia) Status: Chronic (4) Obesity Status: Chronic TYLER CONTRERAS DO Aug 13, 2022 06:59
[2022-08-13] MEDS: metFORMIN 500 MG (GLUCOPHAGE) TAB PO SCH ×2 (07:47→18:00)
[2022-08-13] MEDS: PREGABALIN 150 MG (LYRICA) CAPSULE PO SCH ×3 (07:47→21:33)
[2022-08-13] MEDS: meTOprolol TARTRATE 50 MG (LOPRESSOR) TAB PO SCH ×2 (07:47→21:33)
[2022-08-13] MEDS: PANTOPRAZOLE 20 MG TABLET (PROTONIX) PO SCH (07:47)
[2022-08-13] MEDS: OXYBUTYNIN (DITROPAN) 5 MG TAB PO SCH ×2 (07:47→21:33)
[2022-08-13] MEDS: ENOXAPARIN 40 MG/0.4 ML (LOVENOX) SYR SC SCH (07:48)
[2022-08-13 07:53] VITALS: BP 132/80
[2022-08-13] MEDS: DOCUSATE SODIUM 100 MG (COLACE) CAP PO SCH ×2 (07:55→21:30)
[2022-08-13] MEDS: polyethylene glycoL POWDER 17 GM (MIRALAX) PACK PO SCH ×2 (07:56→21:30)
[2022-08-13] MEDS: SENNA W/DOCUSATE (SENOKOT S) TABLET PO SCH ×2 (07:56→21:30)
--- NOTE | 2022-08-13 08:29 | Occupational Ther Daily Note ---
OT Current Status-Daily Note Subjective Pt agreeable to OT Tx. Pt states no concerns with his ability to complete ADLS at discharge, his is able to assist as needed. Mental Status/Objective Patient Orientation: Normal For Age ADL-Treatment Therapy Code Descriptions/Definitions Functional [place] Measure: 0=Not Assessed/NA 4=Minimal Assistance 1=Total Assistance 5=Supervision or Setup 2=Maximal Assistance 6=Modified [place] 3=Moderate Assistance 7=Complete IndependenceSCALE: Activities may be completed with or without assistive devices. 1-Jfqqlflemc-feofsza completes the activity by him/herself with no assistance from a helper. 5-Set-up or Clean-up Assistance-helper sets up or cleans up; patient completes activity. [place] assists only prior to or following the activity. 4-Supervision or Touching Assistance-helper provides verbal cues and/or touching/steadying and/or contact guard assistance as patient completes activity. Assistance may be provided throughout the activity or intermittently. 3-Partial/Moderate Assistance-helper does LESS THAN HALF the effort. [place] lifts, holds or supports trunk or limbs, but provides less than half the effort. 2-Substantial/Maximal Assistance-helper does MORE THAN HALF the effort. [place] lifts or holds trunk or limbs and provides more than half the effort. 0-Hfsnolxkt-qnqibd does ALL the effort. Patient does none of the effort to complete the activity. Or, the assistance of 2 or more helpers is required for the patient to complete the activity. If activity was not attempted, code reason: 7-Patient Refused. 9-Not Applicable-not attempted and the patient did not perform the activity before the current illness, exacerbation or injury. 10-Not Attempted due to Environmental Limitations-(lack of equipment, weather restraints, etc.). 88-Not Attempted due to Medical Conditions or Safety Concerns. Eating (QC): 6 Oral Hygiene (QC): 6 Shower/Bathe Self (QC): 5 Upper Body Dressing (QC): 6 Lower Body Dressing (QC): 5 On/Off Footwear: 6 Toileting Hygiene (QC): 6 Other Treatment Pt in bed, transferred supine to sit EOB. Pt used FWW to transfer into bathroom. Pt completed showering, dressing, toileting, and ADLs as outlined above. Set up with shower due to assistance with covering L stump prior to shower. Pt indicates his will assist him with covering stump at home, and assist with gathering clothes at home. Pt used FWW to return to EOB, then supine. Post tx, pt in bed, call light in reach and all needs met. Education OT Patient Education: Correct positioning, Energy conservation, Modified ADL techniques, Progress toward Goal/Update tx plan, Purpose of tx/functional activities, Rehab process Teaching Recipient: Patient Teaching Methods: Discussion Response to Teaching: Verbalize Understanding BIMS CAM BIMS Expression of Ideas and Wants: Without Difficulty Understanding Verbal Content: Understands Brief Interview/Mental Status: Yes IRF DIANA BIMS: IRF DIANA BIMS Response (Comments) Value Repitition of Three Words Three 3 Recalls Socks Yes, No Cue Required 2 Recalls Blue Yes, No Cue Required 2 Recalls Bed Yes, After Cueing 1 Year Correct 3 Month Accurate Within 5 Days 2 Day Correct 1 Total 14 CAM Mental Status Change/Baseline: 0 Inattention: 0 Disorganized thinkin Altered level of consciousness: 0 OT Short Term Goals Short Term Goals Time Frame: Aug 16, 2022 Toileting hygiene: 4 Shower/bathe self: 4 Lower body dressin Putting on/taking off footwear: 5 OT Group Exercise Instructor Goals Group Exercise Instructor Goals Time Frame: Aug 30, 2022 Acute change in mental status: 0 Inattention: 0 Disorganized thinkin Altered level of consciousness: 0 Eating (QC): 6 Oral Hygiene (QC): 6 Toileting Hygiene (QC): 6 Shower/Bathe Self (QC): 5 Upper Body Dressing (QC): 6 Lower Body Dressing (QC): 6 On/Off Footwear (QC): 6 Additional Goals: 1-Demonstrate ADL Tasks, 2-Verbalize Understanding, 3- ImproveStrength/Han 1=Demonstrate adherence to instructed precautions during ADL tasks. 2=Patient will verbalize/demonstrate understanding of assistive devices/modifications for ADL. 3=Patient will improve strength/tolerance for activity to enable patient to perform ADL's. OT Education/Plan Problem List/Assessment Assessment: Decreased Activ Tolerance, Impaired I ADL's Discharge Recommendations Plan/Recommendations: Continue POC Treatment Plan/Plan of Care Patient would benefit from OT for education, treatment and training to promote independence in ADL's, mobility, safety and/or upper extremity function for ADL's. Plan of Care: ADL Retraining, Functional Mobility, Group Exercise/Act as Ind, UE Funct Exercise/Act Treatment Duration: Aug 30, 2022 Frequency: At least 5 of 7 days/Wk (IRF) Estimated Hrs Per Day: 1.5 hours per day Agreement: Yes Rehab Potential: Fair Time Start Time: 08:00 Stop Time: 09:00 DATE: Aug 13, 2022 Total Time Billed (hr/min): 60 Billed Treatment Time 1, ADL 4 KARAN GONSALES OT Aug 13, 2022 08:29
--- NOTE | 2022-08-13 09:53 | Physical Therapy Daily Note ---
PT Daily Note-Current Subjective Patient in bed pre tx, agrees to PT, has no complaints of pain. Pain Section J - Health Conditions 1. Rarely or not at all 2. Occasionally 3. Frequently 4. Almost constantly 8. Unable to answer Pain Effect on Sleep: 3 Pain Interference with Therapy: 3 Pain Interference w/Day-to-Day: 3 Appearance Patient in bed post tx with nurse call, phone, tray, all needs met. Mental Status Patient Orientation: Person, Place, Situation Transfers SCALE: Activities may be completed with or without assistive devices. 8-Ieifrooete-riyvhal completes the activity by him/herself with no assistance from a helper. 5-Set-up or Clean-up Assistance-helper sets up or cleans up; patient completes activity. [place] assists only prior to or following the activity. 4-Supervision or Touching Assistance-helper provides verbal cues and/or touching/steadying and/or contact guard assistance as patient completes activity. Assistance may be provided throughout the activity or intermittently. 3-Partial/Moderate Assistance-helper does LESS THAN HALF the effort. [place] lifts, holds or supports trunk or limbs, but provides less than half the effort. 2-Substantial/Maximal Assistance-helper does MORE THAN HALF the effort. [place] lifts or holds trunk or limbs and provides more than half the effort. 1-Zdthvbmme-wpnogk does ALL the effort. Patient does none of the effort to complete the activity. Or, the assistance of 2 or more helpers is required for the patient to complete the activity. If activity was not attempted, code reason: 7-Patient Refused. 9-Not Applicable-not attempted and the patient did not perform the activity before the current illness, exacerbation or injury. 10-Not Attempted due to Environmental Limitations-(lack of equipment, weather restraints, etc.). 88-Not Attempted due to Medical Conditions or Safety Concerns. Roll Left & Right (QC): 6 Sit to Lying (QC): 6 Lying to Sitting/Side of Bed(Q: 6 Sit to Stand (QC): 6 Chair/Jng-pu-Fkylx Xfer(QC): 6 Toilet Transfer (QC): 6 Car Transfer (QC): 6 Patient performs rolling and supine <-> sit with independence, sit <-> stand and transfers independent, car transfer independent Gait Training Distance: 100', 20' Walk 10 feet (QC): 4 Walk 50 ft with 2 Turns(QC): 4 Walk 150 ft (QC): 88 Walking 10ft/uneven surface-QC: 4 Gait Persons Needed: 1 Gait Assistive Device: FWW Patient can ambulate 100' with a rolling walker with SBA (including 50' with at least 2 turns of 90 degrees and 10' over an uneven surface), patient has trouble with foot clearance on occasion but no LOB Wheelchair Training Does the Pt Use a Wheelchair?: Yes Wheel 50 ft with 2 turns (QC): 6 Wheel 150 ft (QC): 6 Stair Training Stair Training: Handrails/: uses walker #of Steps: 1 1 Step (curb) (QC): 4 4 Steps (QC): 88 12 Steps (QC): 88 Stairs: Pattern: Hops Patient can go up and down 1 step using a rolling walker with CGA, patient has trouble clearing the step, not safe to do more than 1 step at this time. Balance Picking up an Object (QC): 6 (using a car whacker) Exercises NuStep Minutes: 15 NuStep Workload: 5 Treatments bed mobility and transfers, ambulation, WC mobility, stair training, strengthening Assessment Current Status: Fair Progress improving general mobility and endurance, patient is having trouble with steps but he has a ramp at home PT Short Term Goals Short Term Goals Time Frame: Aug 13, 2022 Sit to stand: 4 (SBA) Chair/fji-mp-bckcr transfer: 4 (SBA) Walk 10 feet: 4 (SBA) PT Nursing Home Goals Nursing Home Goals PT Painting Supervisor Goals Time Frame: Aug 20, 2022 Roll Left & Right (QC): 6 Sit to Lying (QC): 6 Lying-Sitting on Side/Bed(QC): 6 Sit to Stand (QC): 6 Chair/Gmz-vx-Qnyfm Xfer(QC): 6 Toilet Transfer (QC): 6 Car Transfer (QC): 6 Does the Patient Walk: Yes Walk 10 feet (QC): 6 Walk 50ft with 2 Turns (QC): 6 Walk 150 ft (QC): 88 Walking 10ft on Uneven Surface: 6 1 Step (curb) (QC): 4 (SBA) 4 Steps (QC): 88 12 Steps (QC): 88 Picking up an Object (QC): 4 (SBA using a car whacker) Wheel 50 feet with 2 turns (QC: 6 Wheel 150 feet: 6 PT Plan Problem List Problem List: Activity Tolerance, Functional Strength, Safety, Balance, Gait, Transfer, ROM Treatment/Plan Treatment Plan: Continue Plan of Care Treatment Plan: Bed Mobility, Education, Functional Activity Han, Functional Strength, Group Therapy, Gait, Safety, Therapeutic Exercise, Transfers Treatment Duration: Aug 20, 2022 Frequency: At least 5 of 7 days/Wk (IRF) Estimated Hrs Per Day: 1.5 hours per day Patient and/or Family Agrees t: Yes Safety Risks/Education Patient Education: Gait Training, Transfer Techniques, Steps, Correct Positioning, W/C Management, Safety Issues Teaching Recipient: Patient Teaching Methods: Demonstration, Discussion Response to Teaching: Reinforcement Needed Time Time In: 0900 Time Out: 1000 DATE: Aug 13, 2022 Total Billed Treatment Time: 60 Total Billed Treatment 1 visit EX 15' FA 45' CAROL STEELE PT Aug 13, 2022 09:53
--- NOTE | 2022-08-13 10:45 | Physical Therapy Daily Note ---
PT Daily Note-Current Subjective Patient in bed pre tx, agrees to PT, has no complaints of pain. Pain Section J - Health Conditions 1. Rarely or not at all 2. Occasionally 3. Frequently 4. Almost constantly 8. Unable to answer Pain Effect on Sleep: 3 Pain Interference with Therapy: 3 Pain Interference w/Day-to-Day: 3 Appearance Patient in bed post tx with nurse call, phone, tray,all needs met. Mental Status Patient Orientation: Person, Place, Situation Transfers SCALE: Activities may be completed with or without assistive devices. 2-Scxhntuutl-nhhpmsg completes the activity by him/herself with no assistance from a helper. 5-Set-up or Clean-up Assistance-helper sets up or cleans up; patient completes activity. [place] assists only prior to or following the activity. 4-Supervision or Touching Assistance-helper provides verbal cues and/or touching/steadying and/or contact guard assistance as patient completes activity. Assistance may be provided throughout the activity or intermittently. 3-Partial/Moderate Assistance-helper does LESS THAN HALF the effort. [place] lifts, holds or supports trunk or limbs, but provides less than half the effort. 2-Substantial/Maximal Assistance-helper does MORE THAN HALF the effort. [place] lifts or holds trunk or limbs and provides more than half the effort. 9-Phfwexmcs-oeohuy does ALL the effort. Patient does none of the effort to complete the activity. Or, the assistance of 2 or more helpers is required for the patient to complete the activity. If activity was not attempted, code reason: 7-Patient Refused. 9-Not Applicable-not attempted and the patient did not perform the activity before the current illness, exacerbation or injury. 10-Not Attempted due to Environmental Limitations-(lack of equipment, weather restraints, etc.). 88-Not Attempted due to Medical Conditions or Safety Concerns. Exercises Supine Ex: Quad Set, Glut sets, Lower trunk rotation, Heel Slides, Straight leg raise, Hip abd/add Supine Reps: 20 Treatments LE ROM Assessment Current Status: Fair Progress improving knee ROM on the left side PT Short Term Goals Short Term Goals Time Frame: Aug 13, 2022 Sit to stand: 4 (SBA) Chair/bbh-co-poyaa transfer: 4 (SBA) Walk 10 feet: 4 (SBA) PT Shelter Goals Dental Hygiene Administrative Assistant Goals PT Shelter Goals Time Frame: Aug 20, 2022 Roll Left & Right (QC): 6 Sit to Lying (QC): 6 Lying-Sitting on Side/Bed(QC): 6 Sit to Stand (QC): 6 Chair/Amv-hs-Aienq Xfer(QC): 6 Toilet Transfer (QC): 6 Car Transfer (QC): 6 Does the Patient Walk: Yes Walk 10 feet (QC): 6 Walk 50ft with 2 Turns (QC): 6 Walk 150 ft (QC): 88 Walking 10ft on Uneven Surface: 6 1 Step (curb) (QC): 4 (SBA) 4 Steps (QC): 88 12 Steps (QC): 88 Picking up an Object (QC): 4 (SBA using a public health internship) Wheel 50 feet with 2 turns (QC: 6 Wheel 150 feet: 6 PT Plan Problem List Problem List: Activity Tolerance, Functional Strength, Safety, Balance, Gait, Transfer, Bed Mobility, ROM Treatment/Plan Treatment Plan: Continue Plan of Care Treatment Plan: Bed Mobility, Education, Functional Activity Han, Functional Strength, Group Therapy, Gait, Safety, Therapeutic Exercise, Transfers Treatment Duration: Aug 20, 2022 Frequency: At least 5 of 7 days/Wk (IRF) Estimated Hrs Per Day: 1.5 hours per day Patient and/or Family Agrees t: Yes Safety Risks/Education Patient Education: Correct Positioning, Safety Issues Teaching Recipient: Patient Teaching Methods: Demonstration, Discussion Response to Teaching: Reinforcement Needed Time Time In: 1015 Time Out: 1045 DATE: Aug 13, 2022 Total Billed Treatment Time: 30 Total Billed Treatment 1 visit EX 30' CAROL STEELE PT Aug 13, 2022 10:45
--- NOTE | 2022-08-13 11:43 | Occupational Ther Daily Note ---
OT Current Status-Daily Note Subjective Pt in bed, agreeable to OT Tx. Mental Status/Objective Patient Orientation: Normal For Age ADL-Treatment Therapy Code Descriptions/Definitions Functional [place] Measure: 0=Not Assessed/NA 4=Minimal Assistance 1=Total Assistance 5=Supervision or Setup 2=Maximal Assistance 6=Modified [place] 3=Moderate Assistance 7=Complete IndependenceSCALE: Activities may be completed with or without assistive devices. 1-Ovgpbulgqq-zaciimh completes the activity by him/herself with no assistance from a helper. 5-Set-up or Clean-up Assistance-helper sets up or cleans up; patient completes activity. [place] assists only prior to or following the activity. 4-Supervision or Touching Assistance-helper provides verbal cues and/or touching/steadying and/or contact guard assistance as patient completes activity. Assistance may be provided throughout the activity or intermittently. 3-Partial/Moderate Assistance-helper does LESS THAN HALF the effort. [place] lifts, holds or supports trunk or limbs, but provides less than half the effort. 2-Substantial/Maximal Assistance-helper does MORE THAN HALF the effort. [place] lifts or holds trunk or limbs and provides more than half the effort. 1-Wtwzizmxt-nconup does ALL the effort. Patient does none of the effort to complete the activity. Or, the assistance of 2 or more helpers is required for the patient to complete the activity. If activity was not attempted, code reason: 7-Patient Refused. 9-Not Applicable-not attempted and the patient did not perform the activity before the current illness, exacerbation or injury. 10-Not Attempted due to Environmental Limitations-(lack of equipment, weather restraints, etc.). 88-Not Attempted due to Medical Conditions or Safety Concerns. Other Treatment Pt in bed, transferred supine to sit EOB independently. Pt donned stump protector without assistance. SPT to w/c, independently. Pt propelled w/c to therapy gym, IND. In order to increase BUE Strength and activity tolerance, pt completed arm bike, x15 mins, 20-25 [place] resistance, no rest breaks. Pt propelled w/c back to his room, IND. Post tx, pt up in w/c, call light in reach and all needs met. OT Short Term Goals Short Term Goals Time Frame: Aug 16, 2022 Toileting hygiene: 4 Shower/bathe self: 4 Lower body dressin Putting on/taking off footwear: 5 OT M[facility] Goals Drawer In Stitch Bonding Machine Goals Time Frame: Aug 30, 2022 Acute change in mental status: 0 Inattention: 0 Disorganized thinkin Altered level of consciousness: 0 Eating (QC): 6 Oral Hygiene (QC): 6 Toileting Hygiene (QC): 6 Shower/Bathe Self (QC): 5 Upper Body Dressing (QC): 6 Lower Body Dressing (QC): 6 On/Off Footwear (QC): 6 Additional Goals: 1-Demonstrate ADL Tasks, 2-Verbalize Understanding, 3- ImproveStrength/Han 1=Demonstrate adherence to instructed precautions during ADL tasks. 2=Patient will verbalize/demonstrate understanding of assistive devices/modific ations for ADL. 3=Patient will improve strength/tolerance for activity to enable patient to perform ADL's. OT Education/Plan Problem List/Assessment Assessment: Decreased Activ Tolerance, Impaired I ADL's Discharge Recommendations Plan/Recommendations: Continue POC Treatment Plan/Plan of Care Patient would benefit from OT for education, treatment and training to promote independence in ADL's, mobility, safety and/or upper extremity function for ADL's. Plan of Care: ADL Retraining, Functional Mobility, Group Exercise/Act as Ind, UE Funct Exercise/Act Treatment Duration: Aug 30, 2022 Frequency: At least 5 of 7 days/Wk (IRF) Estimated Hrs Per Day: 1.5 hours per day Agreement: Yes Rehab Potential: Fair Time Start Time: 11:25 Stop Time: 11:55 DATE: Aug 13, 2022 Total Time Billed (hr/min): 30 Billed Treatment Time 1, ADL (10'), EX (20') KARAN GONSALES OT Aug 13, 2022 11:43
[2022-08-13] MEDS: HYPOCHLOROUS ACID/NaCl (VASHE) 250 ML IR SCH ×2 (13:00→21:33)
[2022-08-13] MEDS: ASPIRIN E.C. 81 MG (ECOTRIN) TAB PO SCH (18:00)
[2022-08-13] MEDS: MULTIVIT W/MINERALS TAB (THERAGRAN M) PO SCH (18:00)
[2022-08-13 19:37] VITALS: BP 123/74
[2022-08-14] MEDS: inSUlin ASPART (NovoLOG) 1 UNIT/0.01 ML (CHARGE PER UNIT) SC SCH ×2 (06:18→11:21)
[2022-08-14] MEDS ORDERED: HYDR-3820 PO (06:26)
[2022-08-14] MEDS ORDERED: METF-399 PO (06:26)
[2022-08-14] MEDS ORDERED: CYCL10TA25 PO (06:26)
[2022-08-14] MEDS ORDERED: PREG150C46 PO (06:26)
[2022-08-14] MEDS ORDERED: INSU200I4 SQ (06:26)
[2022-08-14] MEDS ORDERED: CITA20TA9 PO (06:26)
[2022-08-14] MEDS ORDERED: OMEP-254 PO (06:26)
[2022-08-14] MEDS ORDERED: OXYB5TAB13 PO (06:26)
[2022-08-14] MEDS ORDERED: ONDA4TAB11 SL (06:26)
[2022-08-14] MEDS ORDERED: ASPI-1238 PO (06:26)
[2022-08-14] MEDS ORDERED: ATOR20TA66 PO (06:26)
[2022-08-14] MEDS ORDERED: METO100T12 PO (06:26)
--- NOTE | 2022-08-14 06:27 | Discharge Summary ---
Diagnosis/Chief Complaint Date of Admission Aug 06, 2022 at 09:50 Date of Discharge Discharge Date: Aug 14, 2022 Discharge Diagnosis Assessment: LBKA DM HTN HLP Obesity Anemia post op acute blood loss type Plan: Monitor closely Fall risk DM management Lovenox 08/07/2022: Monitor closely Pain control Minimize insulin 08/08/2022: Monitor sugar Hold Levemir 08/09/2022: Supportive care Monitor closely 08/10/2022: Monitor closely Hold Levemir 08/11/2022: Supportive care Monitor closely 08/12/2022: Monitor closely Supportive care 08/13/2022: DC tomorrow (1) Status post below-knee amputation of left lower extremity Status: Acute (2) T2DM (type 2 diabetes mellitus) Status: Chronic (3) HLD (hyperlipidemia) Status: Chronic (4) Obesity Status: Chronic Discharge Summary Discharge Physical Examination Allergies: Coded Allergies: Iodinated Contrast Media (Verified Allergy, Severe, Itching, 08/06/22) adhesive tape (Verified Allergy, Unknown, 08/06/22) Vitals & I&Os Vital Signs Date Time Temp Pulse Resp B/P (MAP) Pulse Ox O2 Delivery O2 Flow Rate FiO2 08/14/22 13:38 36.3 89 18 138/79 95 Room Air General Appearance: Alert, Oriented X3, Cooperative Respiratory: Clear to Auscultation Cardiovascular: Regular Rate Psych/Mental Status: Mental Status NL Hospital Course Was the Problem List Reviewed?: Yes Uneventful course after he underwent uncomplicated left BKA due to chronic osteomyelitis. Sugars were controlled while on the unit without Levemir due to controlled diet. Overall he had no issues during course and his pain was well controlled and he remained stable and will see Gladys Miranda in f/u. Labs (last 24 hrs) Laboratory Tests 08/07/22 05:03: Sodium Level 140, Potassium Level 4.5, Chloride Level 106, Carbon Dioxide Level 23, Anion Gap 11, Blood Urea Nitrogen 24H, Creatinine 1.18, Estimat Glomerular Filtration Rate 71, BUN/Creatinine Ratio 20, Glucose Level 77, Calcium Level 8.9, Corrected Calcium 9.5, Total Bilirubin 0.3, Aspartate Amino Transf (AST/SGOT) 25, Alanine Aminotransferase (ALT/SGPT) 19, Alkaline Phosphatase 137H , Total Protein 6.9, Albumin 3.3 08/07/22 05:05: White Blood Count 12.1H, Red Blood Count 3.96L, Hemoglobin 12.1L, Hematocrit 36L , Mean Corpuscular Volume 90, Mean Corpuscular Hemoglobin 31, Mean Corpuscular Hemoglobin Concent 34, Red Cell Distribution Width 13.2, Platelet Count 362, Mean Platelet Volume 10.1, Immature Granulocyte % (Auto) 0, Neutrophils (%) (Auto) 71, Lymphocytes (%) (Auto) 18, Monocytes (%) (Auto) 6, Eosinophils (%) (Auto) 4, Basophils (%) (Auto) 1, Neutrophils # (Auto) 8.6H, Lymphocytes # (Auto) 2.2, Monocytes # (Auto) 0.7, Eosinophils # (Auto) 0.5H, Basophils # (Auto) 0.1, Immature Granulocyte # (Auto) 0.0 08/09/22 06:00: Glucometer 131H 08/09/22 10:48: Glucometer 130H 08/09/22 16:54: Glucometer 139H 08/09/22 21:36: Glucometer 122H 08/10/22 06:18: Glucometer 132H 08/10/22 11:24: Glucometer 137H 08/10/22 16:54: Glucometer 127H 08/12/22 05:10: White Blood Count 13.7H, Red Blood Count 4.28L, Hemoglobin 13.0L, Hematocrit 39L , Mean Corpuscular Volume 90, Mean Corpuscular Hemoglobin 30, Mean Corpuscular Hemoglobin Concent 34, Red Cell Distribution Width 13.2, Platelet Count 382, Mean Platelet Volume 9.8, Immature Granulocyte % (Auto) 1, Neutrophils (%) (Auto) 68, Lymphocytes (%) (Auto) 20, Monocytes (%) (Auto) 6, Eosinophils (%) (Auto) 4, Basophils (%) (Auto) 1, Neutrophils # (Auto) 9.4H, Lymphocytes # (Auto) 2.7, Monocytes # (Auto) 0.8, Eosinophils # (Auto) 0.6H, Basophils # (Auto) 0.2H, Immature Granulocyte # (Auto) 0.1, Sodium Level 139, Potassium Level 3.9, Chloride Level 106, Carbon Dioxide Level 23, Anion Gap 10, Blood Urea Nitrogen 20H, Creatinine 1.04, Estimat Glomerular Filtration Rate 82, BUN/Creatinine Ratio 19, Glucose Level 138H, Calcium Level 9.4, Corrected Calcium 9.8, Total Bilirubin 0.4, Aspartate Amino Transf (AST/SGOT) 25, Alanine Aminotransferase (ALT/SGPT) 33, Alkaline Phosphatase 136, Total Protein 7.2, Albumin 3.5 08/13/22 15:59: Glucometer 104 Pending Labs Laboratory Tests 08/07/22 05:03: Sodium Level 140, Potassium Level 4.5, Chloride Level 106, Carbon Dioxide Level 23, Anion Gap 11, Blood Urea Nitrogen 24, Creatinine 1.18, Estimat Glomerular Filtration Rate 71, BUN/Creatinine Ratio 20, Glucose Level 77, Calcium Level 8.9, Corrected Calcium 9.5, Total Bilirubin 0.3, Aspartate Amino Transf (AST/SGOT) 25, Alanine Aminotransferase (ALT/SGPT) 19, Alkaline Phosphatase 137, Total Protein 6.9, Albumin 3.3 08/07/22 05:05: White Blood Count 12.1, Red Blood Count 3.96, Hemoglobin 12.1, Hematocrit 36, Mean Corpuscular Volume 90, Mean Corpuscular Hemoglobin 31, Mean Corpuscular Hemoglobin Concent 34, Red Cell Distribution Width 13.2, Platelet Count 362, Mean Platelet Volume 10.1, Immature Granulocyte % (Auto) 0, Neutrophils (%) (Auto) 71, Lymphocytes (%) (Auto) 18, Monocytes (%) (Auto) 6, Eosinophils (%) (Auto) 4, Basophils (%) (Auto) 1, Neutrophils # (Auto) 8.6, Lymphocytes # (Auto) 2.2, Monocytes # (Auto) 0.7, Eosinophils # (Auto) 0.5, Basophils # (Auto) 0.1, Immature Granulocyte # (Auto) 0.0 08/09/22 06:00: Glucometer 131 08/09/22 10:48: Glucometer 130 08/09/22 16:54: Glucometer 139 08/09/22 21:36: Glucometer 122 08/10/22 06:18: Glucometer 132 08/10/22 11:24: Glucometer 137 08/10/22 16:54: Glucometer 127 08/12/22 05:10: White Blood Count 13.7, Red Blood Count 4.28, Hemoglobin 13.0, Hematocrit 39, Mean Corpuscular Volume 90, Mean Corpuscular Hemoglobin 30, Mean Corpuscular Hemoglobin Concent 34, Red Cell Distribution Width 13.2, Platelet Count 382, Mean Platelet Volume 9.8, Immature Granulocyte % (Auto) 1, Neutrophils (%) (Auto) 68, Lymphocytes (%) (Auto) 20, Monocytes (%) (Auto) 6, Eosinophils (%) (Auto) 4, Basophils (%) (Auto) 1, Neutrophils # (Auto) 9.4, Lymphocytes # (Auto) 2.7, Monocytes # (Auto) 0.8, Eosinophils # (Auto) 0.6, Basophils # (Auto) 0.2, Immature Granulocyte # (Auto) 0.1, Sodium Level 139, Potassium Level 3.9, Chloride Level 106, Carbon Dioxide Level 23, Anion Gap 10, Blood Urea Nitrogen 20, Creatinine 1.04, Estimat Glomerular Filtration Rate 82, BUN/Creatinine Ratio 19, Glucose Level 138, Calcium Level 9.4, Corrected Calcium 9.8, Total Bilirubin 0.4, Aspartate Amino Transf (AST/SGOT) 25, Alanine Aminotransferase (ALT/SGPT) 33, Alkaline Phosphatase 136, Total Protein 7.2, Albumin 3.5 08/13/22 15:59: Glucometer 104 Discharge Home Medications: Active Scripts Active Aspirin EC (Aspirin) 81 Mg Tablet.dr 324 Mg PO DAILY@1800 Tresiba Flextouch U-200 (Insulin Degludec) 200 Unit/Ml (3 Ml) Insuln.pen 100 Unit SQ HS 7 Days hold until Gladys Miranda assesses Omeprazole Magnesium 20 Mg Capsule.dr 20 Mg PO DAILY Pregabalin 150 Mg Capsule 150 Mg PO TID Oxybutynin Chloride 5 Mg Tablet 5 Mg PO BID Ondansetron Odt (Ondansetron) 4 Mg Tab.rapdis 4 Mg SL Q4H PRN Metoprolol Tartrate 100 Mg Tablet 100 Mg PO BID Metformin HCl 1,000 Mg Tablet 1,000 Mg PO BID WITH MEALS Hydrocodone-Acetamin 10-325 mg (Hydrocodone/Acetaminophen) 10 Mg-325 Mg Tablet 0.5-1 Each PO Q4- 6H PRN Cyclobenzaprine HCl 10 Mg Tablet 10 Mg PO TID Citalopram HBr (Citalopram Hydrobromide) 20 Mg Tablet 20 Mg PO HS Atorvastatin Calcium 20 Mg Tablet 20 Mg PO HS Reported Centrum Silver Tablet (Multivit-Min/FA/Lycopene/Lut) 0.4 Mg-300 Mcg-250 Mcg Tablet 1 Each PO 1800 Fiasp 100 Unit/ml Flextouch (Insulin Aspart (Niacinamide)) 100 Unit/Ml (3 Ml) Insuln.pen Unit SQ PC USES PER SLIDING SCALE Ozempic (Semaglutide) 1 Mg/0.75 Ml (4 Mg/3 Ml) Pen.injctr 1 Mg SQ FRI Instructions to patient/family Please see electronic discharge instructions given to patient. Diagnosis/Problems Diagnosis/Problems (1) Status post below-knee amputation of left lower extremity Status: Acute (2) T2DM (type 2 diabetes mellitus) Status: Chronic (3) HLD (hyperlipidemia) Status: Chronic (4) Obesity Status: Chronic TYLER CONTRERAS DO Aug 14, 2022 06:27
[2022-08-14 07:37] VITALS: BP 138/79
--- NOTE | 2022-08-14 07:49 | Therapy Team Discharge Summary ---
Therapy Discharge Summary Discharge Recommendations Date of Discharge Physical Therapy Roll Left to Right (QC): 6 Sit to Lying (QC): 6 Lying to Sitting/Side of Bed(Q: 6 Sit to Stand (QC): 6 Chair/Ond-oz-Fqolr Xfer(QC): 6 Toilet Transfer (QC): 5 Car Transfer (QC): 6 Does the Patient Walk: Yes Walk 10 feet (QC): 4 Walk 50 ft with 2 Turns(QC): 4 Walk 150 ft (QC): 88 Walking 10ft on uneven surface: 4 Distance: 20'x2 Gait Assistive Device: FWW Does the Pt Use a Wheelchair: Yes Wheel 50 ft with 2 turns (QC): 6 Wheel 150 ft (QC): 6 Type of Wheelchair: Manual #of Steps: 1 1 Step (curb) (QC): 4 4 Steps (QC): 88 12 Steps (QC): 88 Walking Assistive Device: Walker Balance Sitting Static: Normal Balance Sitting Dynamic: Normal Balance-Standing Static: Fair Picking up an Object (QC): 6 (using a edge stitcher) Occupational Therapy Pt admitted to NEU s/p L BKA. At [facility], pt was independent with ADLS and functional mobility, no AD. Upon initial evaluation, pt was independent with eating, required set up with oral care and UE dressing, min A showering and LE dressing, total assist footwear and mod A toileting. OT tx focused on increasing BUE strength and activity tolerance, and increasing safety and independence with ADLS and functional mobility. Pt made good progress towards goals, attaining all LTGS except LE dressing. Pt reports his will be able to assist him as needed. Pt scheduled to discharge from ARU today, home with spouse, d/c from OT at this time. Decreased Activ Tolerance, Impaired I ADL's Eating (QC): 6 Oral Hygiene (QC): 6 Shower/Bathe Self (QC): 5 Upper Body Dressing (QC): 6 Lower Body Dressing (QC): 5 On/Off Footwear (QC): 6 Toileting Hygiene (QC): 6 PT Longterm Goals Reference Assistant Goals PT Reference Assistant Goals Time Frame: Aug 20, 2022 Roll Left to Right (QC): 6 Sit to Lying (QC): 6 Lying-Sitting on Side/Bed(QC): 6 Sit to Stand (QC): 6 Chair/Zin-bz-Mtdvo Xfer(QC): 6 Toilet/Commode Transfer (QC): 6 Car Transfer (QC): 6 Does the Patient Walk: Yes Walk 10 feet (QC): 6 Walk 10ft-Uneven Surface(QC): 6 Walk 50ft with 2 Turns (QC): 6 Walk 150 ft (QC): 88 Wheel 50 feet with 2 turns (QC: 6 Wheel 150 feet: 6 1 Step (curb) (QC): 4 (SBA) 4 Steps (QC): 88 12 Steps (QC): 88 Picking up an Object (QC): 4 (SBA using a edge stitcher) OT Reference Assistant Goals Longterm Goals Time Frame: Aug 30, 2022 Acute change in mental status: 0 Inattention: 0 Disorganized thinkin Altered level of consciousness: 0 Eating (QC): 6 (met) Oral Hygiene (QC): 6 (met) Toileting Hygiene (QC): 6 (met) Shower/Bathe Self (QC): 5 (met) Upper Body Dressing (QC): 6 (met) Lower Body Dressing (QC): 6 (not met) On/Off Footwear (QC): 6 (met) Additional Goals: 1-Demonstrate ADL Tasks, 2-Verbalize Understanding, 3- ImproveStrength/Han 1=Demonstrate adherence to instructed precautions during ADL tasks. 2=Patient will verbalize/demonstrate understanding of assistive devices/modifications for ADL. 3=Patient will improve strength/tolerance for activity to enable patient to perform ADL's. KARAN GONSALES OT Aug 14, 2022 07:49
[2022-08-14] MEDS: ENOXAPARIN 40 MG/0.4 ML (LOVENOX) SYR SC SCH (08:34)
[2022-08-14] MEDS: OXYBUTYNIN (DITROPAN) 5 MG TAB PO SCH (08:34)
[2022-08-14] MEDS: PREGABALIN 150 MG (LYRICA) CAPSULE PO SCH ×2 (08:34→13:00)
[2022-08-14] MEDS: meTOprolol TARTRATE 50 MG (LOPRESSOR) TAB PO SCH (08:35)
[2022-08-14] MEDS: DOCUSATE SODIUM 100 MG (COLACE) CAP PO SCH (08:35)
[2022-08-14] MEDS: polyethylene glycoL POWDER 17 GM (MIRALAX) PACK PO SCH (08:36)
[2022-08-14] MEDS: PANTOPRAZOLE 20 MG TABLET (PROTONIX) PO SCH (08:55)
[2022-08-14] MEDS: metFORMIN 500 MG (GLUCOPHAGE) TAB PO SCH (08:56)
[2022-08-14] MEDS: HYPOCHLOROUS ACID/NaCl (VASHE) 250 ML IR SCH (08:56)
[2022-08-14] MEDS: SENNA W/DOCUSATE (SENOKOT S) TABLET PO SCH (08:57)
[2022-08-14 13:38] VITALS: BP 138/79
--- NOTE | 2022-08-14 14:21 | Therapy Team Discharge Summary ---
Therapy Discharge Summary Discharge Recommendations Date of Discharge Physical Therapy Patient came to rehab post left BKA. Upon evaluation patient performs rolling and supine <-> sit with independence, sit <-> stand and transfers CGA, car transfer CGA, can ambulate 20' with a rolling walker with CGA (including 10' over an uneven surface), propelled a manual WC 300' with SBA, up and down 1 step using a rolling walker with CGA, and picked up an object from the floor using a operations and maintenance supervisor with CGA. Patient has been performing bed mobility and transfer training, balance and endurance training ,functional strengthening, stair training, gait training, and education. Patient has made fair progress and has met all of his residential goals except for stairs and ambulation. Now, patient performs rolling and supine <-> sit with independence, sit <-> stand and transfers independent, car transfer independent, can ambulate 100' with a rolling walker with SBA (including 50' with at least 2 turns of 90 degrees and 10' over an uneven surface), independent with WC mobility, can go up and down 1 step using a rolling walker with CGA, and can pecan picker an object from the floor using a operations and maintenance supervisor with independence. Patient is being discharged from this facility today and will be discharged from PT at this time. Roll Left to Right (QC): 6 Sit to Lying (QC): 6 Lying to Sitting/Side of Bed(Q: 6 Sit to Stand (QC): 6 Chair/Xjy-fi-Jpxcn Xfer(QC): 6 Toilet Transfer (QC): 6 Car Transfer (QC): 6 Does the Patient Walk: Yes Walk 10 feet (QC): 4 Walk 50 ft with 2 Turns(QC): 4 Walk 150 ft (QC): 88 Walking 10ft on uneven surface: 4 Distance: 20'x2 Gait Assistive Device: FWW Does the Pt Use a Wheelchair: Yes Wheel 50 ft with 2 turns (QC): 6 Wheel 150 ft (QC): 6 Type of Wheelchair: Manual #of Steps: 1 1 Step (curb) (QC): 4 4 Steps (QC): 88 12 Steps (QC): 88 Walking Assistive Device: Walker Balance Sitting Static: Normal Balance Sitting Dynamic: Normal Balance-Standing Static: Fair Picking up an Object (QC): 6 (using a operations and maintenance supervisor) Occupational Therapy Decreased Activ Tolerance, Impaired I ADL's Eating (QC): 6 Oral Hygiene (QC): 6 Shower/Bathe Self (QC): 5 Upper Body Dressing (QC): 6 Lower Body Dressing (QC): 5 On/Off Footwear (QC): 6 Toileting Hygiene (QC): 6 PT Care Home Goals Panelbeater Goals PT Care Home Goals Time Frame: Aug 20, 2022 Roll Left to Right (QC): 6 Sit to Lying (QC): 6 Lying-Sitting on Side/Bed(QC): 6 Sit to Stand (QC): 6 Chair/Ztu-dh-Chkll Xfer(QC): 6 Toilet/Commode Transfer (QC): 6 Car Transfer (QC): 6 Does the Patient Walk: Yes Walk 10 feet (QC): 6 Walk 10ft-Uneven Surface(QC): 6 Walk 50ft with 2 Turns (QC): 6 Walk 150 ft (QC): 88 Wheel 50 feet with 2 turns (QC: 6 Wheel 150 feet: 6 1 Step (curb) (QC): 4 (SBA) 4 Steps (QC): 88 12 Steps (QC): 88 Picking up an Object (QC): 4 (SBA using a operations and maintenance supervisor) OT Panelbeater Goals Care Home Goals Time Frame: Aug 30, 2022 Acute change in mental status: 0 Inattention: 0 Disorganized thinkin Altered level of consciousness: 0 Eating (QC): 6 (met) Oral Hygiene (QC): 6 (met) Toileting Hygiene (QC): 6 (met) Shower/Bathe Self (QC): 5 (met) Upper Body Dressing (QC): 6 (met) Lower Body Dressing (QC): 6 (not met) On/Off Footwear (QC): 6 (met) Additional Goals: 1-Demonstrate ADL Tasks, 2-Verbalize Understanding, 3-ImproveStrength/Han 1=Demonstrate adherence to instructed precautions during ADL tasks. 2=Patient will verbalize/demonstrate understanding of assistive devices/modifications for ADL. 3=Patient will improve strength/tolerance for activity to enable patient to per form ADL's. CAROL STEELE PT Aug 14, 2022 14:21
--- NOTE | 2022-08-14 21:09 | D/C HH Face to Face Order ---
D/C Face to Face Orders Reconcile Patient Problems Problems Reviewed?: Yes Instructions for Patient Via [facility], Patient Instructions/FollowUp: PCP 1 week Physician to follow Patient: Gladys Miranda Discharge Diet for Home: No Restrictions Patient Problems: Left BKA Patient Data-Allergies,Ht & Wt Patient Allergies: Coded Allergies: Iodinated Contrast Media (Verified Allergy, Severe, Itching, 08/06/22) adhesive tape (Verified Allergy, Unknown, 08/06/22) Home Health Need/Face to Face Date of Face to Face: Aug 14, 2022 Clinical Findings: Generalized weakness and fatigue, Instability, Muscle weakn ess I have seen Pt [id number]: Yes Discharged To: Home Diagnosis/Conditions: LBKA Patient is Homebound due to: Rudy fall risk due to instabilty, Muscle weakness Homebound Status Due to the above stated illness, injury or surgical procedure (medical condition or diagnosis) and associated clinical findings, the patient is homebound because of his/her inability to leave home except with aid of a supportive device and/or person AND leaving the home requires a considerable and taxing effort or is medically contraindicated. Pt req the following assistanc: Walker Home Health Nursing Orders Home Health Services Order: Nursing Services, School Clerk-Evaluate & Treat, Physical Therapy-Evaluate & Treat Certify Stmt I certify that this patient is under my care and that I, a nurse practitioner or a physician; a bilingual executive assistant working with me, had a face to face encounter that - meets the physician face to face encounter requirements with this patient as dated. TYLER CONTRERAS DO Aug 14, 2022 21:09
== END 2022-08-14 13:33 | disposition home health service (06) | DRG 560 ==
PROVIDERS: ADMIT Internal Medicine; ATTEND Internal Medicine
DX: Z47.81 Encounter for orthopedic aftercare following surgical amputation (principal); D62 Acute posthemorrhagic anemia; Z89.512 Acquired absence of left leg below knee; E11.40 Type 2 diabetes mellitus with diabetic neuropathy, unspecified; E11.65 Type 2 diabetes mellitus with hyperglycemia; F32.A Depression, unspecified; E66.9 Obesity, unspecified; I10 Essential (primary) hypertension; E78.00 Pure hypercholesterolemia, unspecified; F43.10 Post-traumatic stress disorder, unspecified; Z68.35 Body mass index [BMI] 35.0-35.9, adult; Z79.85 Long-term (current) use of injectable non-insulin antidiabetic drugs; Z79.84 Long term (current) use of oral hypoglycemic drugs; Z87.891 Personal history of nicotine dependence; Z79.82 Long term (current) use of aspirin; Z91.041 Radiographic dye allergy status
CPT/HCPCS: 36415; 80053; 82947; 85025